=== PATIENT | female | born 1940 | race Hispanic/Latino ===

== ENCOUNTER 2018-10-04 16:20 | Inpatient (IN) | payer MEDICARE, OTHER ==
[~2018-10-04] VITALS: Ht 152.4 cm; Wt 71.2 kg
--- OUTSIDE RECORDS SUMMARY | 2018-10-04 16:24 | XMS REPORT | Continuity of Care Document ---
Author Author [facility] Address Unknown Phone Unavailable Care Team Providers Care Career Consultant Name Role Phone MD Radha, Padmaja GALLARDO Unavailable Insurance Providers Payer name Policy type / Coverage type Policy ID Covered libertarian ID Policy Mendez [facility] (MEDICARE REPL Encounters Encounter Performer Location Date Office Visit Padmaja Gracia MD [facility] Dec 09, 2014 Problems Problem Effective Dates Problem Status PREVENTIVE HEALTH CARE Jun 02, 2014 Active OTHER SCREENING MAMMOGRAM Jun 02, 2014 Active SCREENING FOR COLON CANCER Jun 02, 2014 Active SCREENING FOR GLAUCOMA Jun 02, 2014 Active BODY MASS INDEX 35.0-35.9, ADULT Jun 02, 2014 Active HYPERTENSION, BENIGN ESSENTIAL Jun 02, 2014 Active DIABETES MELLITUS, TYPE II Jun 02, 2014 Active HYPERLIPIDEMIA Jun 02, 2014 Active URINARY FREQUENCY Jun 02, 2014 Active SCREENING EXAMINATION FOR VENEREAL DISEASE Jun 02, 2014 Active MENOPAUSE Jun 02, 2014 Active DYSPNEA Jun 02, 2014 Active CORNS AND CALLOSITIES Jun 02, 2014 Active NEED FOR PROPHYLACTIC VACCINATION AGAINST STREPTOCOCCUS PNEUMONIAE [PNEUMOCOCCUS] Jun 02, 2014 Active DEMENTIA Jun 19, 2014 Active FOOT PAIN Oct 23, 2014 Active DYSPAREUNIA Dec 09, 2014 Active EDEMA LEG Dec 09, 2014 Active Procedures Date Description Comments Jun 02, 2014 smoking status Former smoker Jun 02, 2014 depression, criteria for diagnosis, step 1 N Jun 02, 2014 depression, criteria for diagnosis, step 2 N Jun 02, 2014 diabetic foot check yes Jun 19, 2014 smoking status Former smoker Jun 11, 2014 bone density Complete std dev Jun 11, 2014 mammogram Completed Dec 09, 2014 smoking status Former smoker Medications Medication Instructions Start Date Status METFORMIN HCL 500 MG TABS take one tablet by mouth twice a day Jun 02, 2014 Active METOPROLOL SUCCINATE ER 25 MG [id number] take one tablet by mouth daily Jun 02, 2014 Active AMLODIPINE BESYLATE 10 MG TABS Take one tablet by mouth once a day Jun 19, 2014 Active DONEPEZIL HCL 5 MG TBDP Take one tablet by mouth once a day Jun 19, 2014 Active B-12 1000 MCG CAPS Take one tablet by mouth once a day Jun 19, 2014 Active CALTRATE 600+D 600-400 MG-UNIT TABS 1 tablet twice daily Jun 19, 2014 Active ALENDRONATE SODIUM 35 MG TABS take one tablet by mouth once weekly with full glass of water and remain upright for 30 minutes Jun 19, 2014 Active MARIANO TELLEZ LANCDARRELL 33G MISC use as directed Sep 13, 2014 Active LOSARTAN POTASSIUM-HCTZ 100-25 MG TABS take one tablet by mouth daily Jun 02, 2014 Inactive VALSARTAN-HYDROCHLOROTHIAZIDE 320-12.5 MG TABS Take one tablet by mouth once a day Dec 09, 2014 Active HYDRALAZINE HCL 25 MG TABS Take one tablet by mouth two times a day Dec 09, 2014 Active Immunizations Vaccine Date Status pneumococcal immunization administered Jun 02, 2014 completed Vital Signs Date Description Test Result Jun 02, 2014 temperature E&M TEMPERATURE 97.3 deg f Jun 02, 2014 respiratory rate E&M - 9279-1 RESP RATE 16 /min Jun 02, 2014 weight E&M - 3141-9 WEIGHT 181 lb Jun 02, 2014 height E&M - 8302-2 HEIGHT 60 in Jun 02, 2014 blood pressure, systolic - 8480-6 BP SYSTOLIC 170 mm Hg Jun 02, 2014 blood pressure, diastolic - 8462-4 BP DIASTOLIC 88 mm Hg Jun 02, 2014 pulse rate E&M - 8867-4 PULSE RATE 92 /min Jun 02, 2014 blood pressure, systolic, second observation BP SYS #2 165 mm Hg Jun 02, 2014 blood pressure, diastolic, second observation BP LEONIDAS #2 80 mm Hg Jun 19, 2014 blood pressure, systolic - 8480-6 BP SYSTOLIC 180 mm Hg Jun 19, 2014 blood pressure, diastolic - 8462-4 BP DIASTOLIC 89 mm Hg Jun 19, 2014 respiratory rate E&M - 9279-1 RESP RATE 16 /min Jun 19, 2014 temperature E&M TEMPERATURE 97.6 deg f Jun 19, 2014 pulse rate E&M - 8867-4 PULSE RATE 66 /min Jun 19, 2014 height E&M - 8302-2 HEIGHT 60 in Jun 19, 2014 weight E&M - 3141-9 WEIGHT 179.13 lb Jun 19, 2014 blood pressure, systolic, second observation BP SYS #2 170 mm Hg Jun 19, 2014 blood pressure, diastolic, second observation BP LEONIDAS #2 79 mm Hg Dec 09, 2014 height E&M - 8302-2 HEIGHT 60 in Dec 09, 2014 weight E&M - 3141-9 WEIGHT 180 lb Dec 09, 2014 temperature E&M TEMPERATURE 97.0 deg f Dec 09, 2014 respiratory rate E&M - 9279-1 RESP RATE 14 /min Dec 09, 2014 pulse rate E&M - 8867-4 PULSE RATE 65 /min Dec 09, 2014 blood pressure, systolic - 8480-6 BP SYSTOLIC 167 mm Hg Dec 09, 2014 blood pressure, diastolic - 8462-4 BP DIASTOLIC 85 mm Hg Dec 09, 2014 blood pressure, systolic, second observation BP SYS #2 160 mm Hg Dec 09, 2014 blood pressure, diastolic, second observation BP LEONIDAS #2 80 mm Hg Results Date Description Test Name Value Reference Interpretation Status Jun 03, 2014 hemoglobin, blood HGB 15.3 g/dL 12.0-16.0 Jun 03, 2014 hematocrit, blood HCT 47.2 % 36.0-48.0 Jun 03, 2014 platelet count PLATELETS 176 K/CMM /mm3 133-450 Jun 03, 2014 urine color UA COLOR Yellow null Yellow Jun 03, 2014 bacteria, urine microscopy BACTERIA URN Few null None Seen Jun 03, 2014 hemoglobin A1C, blood, as % of total hemoglobin HGBA1C 6.8 % <=5.6 High Jun 03, 2014 thyroid stimulating hormone, serum TSH 0.618 uIU/mL 0.360-3.740 Jun 03, 2014 cholesterol, serum CHOLESTEROL 207 mg/dl <=199 High Jun 03, 2014 triglyceride, serum, fasting TRIGLYCERIDE 148 mg/dl <=149 Jun 03, 2014 HDL cholesterol, serum HDL 59 mg/dl >=61 Low Jun 03, 2014 LDL cholesterol, serum LDL 118 mg/dl <=99 High Jun 03, 2014 sodium, serum SODIUM 140 MEQ/L mmol/L 135-145 Jun 03, 2014 potassium, serum POTASSIUM 3.5 MEQ/L mmol/L 3.5-5.1 Jun 03, 2014 creatinine, serum CREATININE 0.8 mg/dL 0.5-1.4 Jun 03, 2014 urea nitrogen, blood BUN 13 mg/dL 7-22 Jun 03, 2014 urea nitrogen/creatinine ratio, serum BUN/CREAT 16 null 6-25 Jun 03, 2014 albumin, serum ALBUMIN 4.2 g/dL 3.5-5.0 Jun 03, 2014 calcium, serum CALCIUM 8.6 mg/dL 8.5-10.5 Jun 03, 2014 alanine aminotransferase (SGPT), serum SGPT (ALT) 37 U/L 0-65 Jun 03, 2014 aspartate aminotransferase (SGOT), serum SGOT (AST) 28 U/L 0-37 Jun 03, 2014 alkaline phosphatase, serum ALK PHOS 69 U/L 39-136 Jun 06, 2014 occult blood, stool (E&M) HEMOCCULT Negative null Negative Jun 07, 2014 occult blood, stool (E&M) HEMOCCULT Negative null Negative Jun 08, 2014 occult blood, stool (E&M) HEMOCCULT Negative null Negative Jun 03, 2014 rapid plasma reagin antibody, serum RPR Non Reactive null Non Reactive
--- OUTSIDE RECORDS SUMMARY | 2018-10-04 16:24 | XMS REPORT | Continuity of Care Document ---
Author Author [facility] Address Unknown Phone Unavailable Care Team Providers Care Latex Foam Worker Name Role Phone MD Radha, Padmaja GALLARDO Unavailable Insurance Providers Payer name Policy type / Coverage type Policy ID Covered constitution party ID Policy Mendez [facility] (MEDICARE REPL Encounters Encounter Performer Location Date Lab Report Padmaja Garcia MD [facility] Dec 10, 2014 Problems Problem Effective Dates Problem Status [...] 2014 Active METOPROLOL SUCCINATE ER 25 MG [id number] take one tablet by mouth daily Jun [...] microscopy BACTERIA URN Few null None Seen Dec 10, 2014 urine color UA COLOR Light Yellow null Yellow Jun 03, 2014 hemoglobin A1C, blood, as [...]
--- OUTSIDE RECORDS SUMMARY | 2018-10-04 16:24 | XMS REPORT | Continuity of Care Document ---
Author Author [facility] [place] Interface Address Unknown Phone Unavailable Problems Problem Status Onset Date Classification Date Reported Comments Source POST OP INFECTION Active 09/17/2018 [facility] M25.511 Active 08/19/2018 [facility] ROUTINE MAMMO Active 08/19/2018 [facility] URETERAL VAGINAL PROLAPSED Active 05/08/2018 [facility] URETRAL VAGINAL PROLAPSED Active 05/08/2018 [facility] E66.09 Active 04/05/2018 [facility] Fall from steps 10/21/2017 10/24/2017 [facility] Peripheral vertigo 10/21/2017 10/24/2017 [facility] FALL Active 10/21/2017 [facility] Encounter for screening mammogram for malignant neoplasm of breast 08/30/2017 11/28/2017 [facility] Z12.31 Active 08/02/2017 [facility] DX: M81.0=AGE-RELATED OSTEOPOROSIS WITHO Active 08/09/2016 [facility] SCREENING LAST MMG W/THE BALBINA Active 12/21/2015 [facility] DYSPAREUNIA Active 12/09/2014 [facility] 01/21/[facility] EDEMA LEG Active 12/09/2014 Condition 01/21/[facility] FOOT PAIN Active 10/23/2014 Condition 01/21/2015 [facility] DEMENTIA Active 06/19/2014 Condition 01/21/2015 [facility] Dementia<sup>5, 6</sup> Active 06/19/2014 Problem 09/07/2018 Data migrated from [address] on 10/20/14. [facility] Dementia<sup>5, 6</sup> Active 06/19/2014 Problem 09/24/2018 Data migrated from [address] on 10/20/14. [facility] 06/02/2014 Condition 01/21/2015 [facility] OTHER SCREENING MAMMOGRAM Active 06/02/2014 Condition 01/21/2015 [facility] SCREENING FOR COLON CANCER Active 06/02/2014 Condition 01/21/2015 [facility] SCREENING FOR GLAUCOMA Active 06/02/2014 Condition 01/21/2015 [facility] BODY MASS INDEX 35.0-35.9, ADULT Active 06/02/2014 Condition 01/21/2015 [facility] HYPERTENSION, BENIGN ESSENTIAL Active 06/02/2014 Condition 01/21/2015 [facility] DIABETES MELLITUS, TYPE II Active 06/02/2014 Condition 01/21/2015 [facility] HYPERLIPIDEMIA Active 06/02/2014 Condition 01/21/2015 [facility] URINARY FREQUENCY Active 06/02/2014 Condition 01/21/2015 [facility] SCREENING EXAMINATION FOR VENEREAL DISEASE Active 06/02/2014 Condition 01/21/2015 [facility] MENOPAUSE Active 06/02/2014 Condition 01/21/2015 [facility] DYSPNEA Active 06/02/2014 Condition 01/21/2015 [facility] CORNS AND CALLOSITIES Active 06/02/2014 Condition 01/21/2015 [facility] NEED FOR PROPHYLACTIC VACCINATION AGAINST STREPTOCOCCUS PNEUMONIAE [PNEUMOCOCCUS] Active 06/02/2014 Condition 01/21/2015 [facility] Benign essential hypertension<sup>1, 2</sup> Active 06/02/2014 Problem 09/07/2018 Data migrated from [employer] on 10/20/14. [facility] Body mass index 30+ - obesity<sup>3, 4</sup> Active 06/02/2014 Problem 09/07/2018 Data migrated from [employer] on 10/20/14. [facility] Hyperlipidemia<sup>7, 8</sup> Active 06/02/2014 Problem 08/12/2018 Data migrated from [employer] on 10/20/14. [facility] Type 2 diabetes mellitus<sup>9, 10</sup> Active 06/02/2014 Problem 08/12/2018 Data migrated from [employer] on 10/20/14. [facility] Hyperlipidemia<sup>7, 8</sup> Active 06/02/2014 Problem 07/18/2018 Data migrated from [employer] on 10/20/14. [facility] Type 2 diabetes mellitus<sup>9, 10</sup> Active 06/02/2014 Problem 07/18/2018 Data migrated from [employer] on 10/20/14. [facility] Benign essential hypertension<sup>1, 2</sup> Active 06/02/2014 Problem 09/24/[address] on 10/20/14. [facility] Body mass index 30+ - obesity<sup>3, 4</sup> Active 06/02/2014 Problem 09/24/[address] Data migrated [address] on 10/20/14. [facility] Type 2 diabetes mellitus<sup>7, 8</sup> Active 06/02/2014 Problem 09/24/[address] Data migrated [address] on 10/20/14. [facility] Alzheimer's disease Active Problem 08/12/2018 [facility] Loaiza's esophagus Active Problem 09/07/2018 [facility] Osteopenia Active Problem 09/07/2018 [facility] UI (<span ID="[id number]">Confirmed</span>) Active Problem 09/07/2018 [facility] White coat hypertension Active Problem 12/11/2017 [facility] Alzheimer's disease Active Problem 07/18/2018 [facility] Loaiza's esophagus Active Problem 09/24/2018 [facility] Depression Active Problem 09/24/2018 [facility] Mixed hyperlipidemia Active Problem 09/24/2018 [facility] Osteopenia Active Problem 09/24/2018 [facility] (<span ID="[id number]">Confirmed</span>) Active Problem 09/24/2018 [facility] AGE-RELATED OSTEOPOROSIS W/O CURRENT PAT Active [facility] ILLNESS, UNSPECIFIED Active [facility] Medications Medication Details Route Status Patient Instructions Ordering Provider Order Date Source Amoxicillin 875 MG / Clavulanate 125 MG Oral Tablet [Augmentin 875-mg] 875 mg=1 tab, PO, BID, X 10 day, # 20 tab, 0 Refill(s) Active 09/22/2018 [facility] tramadol hydrochloride 50 MG Oral Tablet 50 mg=1 tab, PO, Q6H, PRN Pain, X 10 day, # 40 tab, 0 Refill(s) Active 09/22/2018 [facility] ibuprofen 600 mg oral tablet 600 mg=1 tab, PO, Q6H, PRN Pain, take with food, X 10 day, # 40 tab, 0 Refill(s) Active 09/22/2018 [facility] Paroxetine 20 mg, 2 tab, Route: PO, Drug form: TAB, Daily, Dosing Weight 80.057, kg, Start date: 09/20/18 10:00:00 CDT, Duration: 30 day, Stop date: 10/20/18 9:00:00 CDTNotes: (Same as: Paxil) No Longer Active 09/20/2018 [facility] Amlodipine 10 mg, 1 tab, Route: PO, Drug form: TAB, Daily, Dosing Weight 80.057, kg, Start date: 09/20/18 9:00:00 CDT, Duration: 30 day, Stop date: 10/19/18 9:00:00 CDTNotes: (Same as: Norvasc) No Longer Active 09/20/2018 [facility] donepezil 10 mg, 2 tab, Route: PO, Drug form: TAB, Daily, Dosing Weight 80.057, kg, Start date: 09/20/18 9:00:00 CDT, Duration: 30 day, Stop date: 10/19/18 9:00:00 CDTNotes: (Same as: Aricept) No Longer Active 09/20/2018 [facility] Hydralazine Hydrochloride 100 MG Oral Tablet 100 mg, 2 tab, Route: PO, Drug form: TAB, TID, Dosing Weight 80.057, kg, Start date: 09/20/18 9:00:00 CDT, Duration: 30 day, Stop date: 10/19/18 17:00:00 CDTNotes: (Same as: Apresoline) May interfere w/enteral feedings Take With Food No Longer Active 09/20/2018 [facility] Flagyl 500 mg, 100 mL, Route: IV, Drug form: INJ, [id number], Dosing Weight 80.057, kg, Start date: 09/19/18 22:00:00 CDT, Duration: 30 day, Stop date: 10/19/18 14:00:00 CDT, ABX Indication: Intra-abdominal Infection No Longer Active 09/20/2018 [facility] Premarin Vaginal 1 gm, Route: VAG, Bedtime, Drug form: CRM/A, Start date: 09/19/18 21:00:00 CDT, Duration: 30 day, Stop date: 10/18/18 21:00:00 CDT No Longer Active 09/20/2018 [facility] cefepime 1 gm, Route: IVP, Drug form: INJ, Q8H, Dosing Weight 80.057, kg, CrCl >/=50 mL/min, Start date: 09/19/18 20:00:00 CDT, Duration: 5 day, Stop date: 09/24/18 12:00:00 CDT, ABX Indication: Intra- abdominal InfectionNotes: MEDICATION WASTE Product Size: 1000 mg Product Wasted: ___ mg No Longer Active 09/20/2018 [facility] Methocarbamol 500 mg, 1 tab, Route: PO, Drug form: TAB, QID, Dosing Weight 80.057, kg, Start date: 09/19/18 17:00:00 CDT, Duration: 30 day, Stop date: 10/19/18 13:00:00 CDTNotes: (Same as:Robaxin) No Longer Active 09/19/2018 [facility] Celebrex 200 mg, 1 cap, Route: PO, Drug form: CAP, BID, Dosing Weight 80.057, kg, Start date: 09/19/18 17:00:00 CDT, Duration: 30 day, Stop date: 10/19/18 9:00:00 CDTNotes: NSAID. Please check indication. Not for seizure. (Same As: CeleBREX) No Longer Active 09/19/2018 [facility] Ondansetron 4 mg, Route: IVP, ONCE, Dosing Weight 80.057, kg, PRN Nausea & Vomiting, Start date: 09/19/18 16:16:00 CDT Inactive 09/19/2018 [facility] Naloxone 0.4 mg, Route: IVP, Q2MIN, Dosing Weight 80.057, kg, PRN Narcotic Reversal, Start date: 09/19/18 16:16:00 CDT, Duration: 8 doses or times, Stop date: Limited # of times Inactive 09/19/2018 [facility] Flumazenil 0.2 mg, Route: IVP, PRN, Dosing Weight 80.057, kg, PRN Benzodiazepine Reversal, Initial dose, Start date: 09/19/18 16:16:00 CDT, Duration: 30 day, Stop date: 10/19/18 16:15:00 CDT Inactive 09/19/2018 [facility] Oxycodone 5 mg, Route: PO, Drug form: TAB, Q4H, Dosing Weight 80.057, kg, PRN Pain Score 4-6, Start date: 09/19/18 16:16:00 CDT, Duration: 30 day, Stop date: 10/19/18 16:15:00 CDT Inactive 09/19/2018 [facility] Acetaminophen 1,000 mg, Route: PO, Drug form: TAB, ONCE, Dosing Weight 80.057, kg, PRN Pain Score 1-3, Start date: 09/19/18 16:16:00 CDT Inactive 09/19/2018 [facility] Ibuprofen 600 mg, Route: PO, Drug form: TAB, Q6H, Dosing Weight 80.057, kg, PRN Pain Score 1-3, Start date: 09/19/18 16:16:00 CDT, Duration: 30 day, Stop date: 10/19/18 16:15:00 CDT Inactive 09/19/2018 [facility] Labetalol 10 mg, Route: IVP, Q5Min, Dosing Weight 80.057, kg, PRN Elevated BP, Start date: 09/19/18 16:16:00 CDT, Duration: 5 doses or times, Stop date: Limited # of times Inactive 09/19/2018 [facility] Hydralazine 10 mg, Route: IVP, Q20Min, Dosing Weight 80.057, kg, PRN Elevated BP, Start date: 09/19/18 16:16:00 CDT, Duration: 2 doses or times, Stop date: Limited # of times Inactive 09/19/2018 [facility] sugammadex 200 mg, 2 mL, Route: IV, Drug form: SOLN, ONCALL, Start date: 09/19/18 16:09:00 CDT, Duration: 1 doses or times, Stop date: 09/19/18 16:09:00 CDTNotes: (Same as: Bridion) No Longer Active 09/19/2018 [facility] gabapentin 300 mg, 1 cap, Route: PO, Drug form: CAP, Q8H, Dosing Weight 80.057, kg, (CrCl > 60 ml/min), Start date: 09/19/18 16:00:00 CDT, Duration: 30 day, Stop date: 10/19/18 8:00:00 CDTNotes: (Same as: Neuro ntin) No Longer Active 09/19/2018 [facility] Lovenox 40 mg, 0.4 mL, Route: SUB-Q, Drug form: INJ, [id number], Dosing Weight 80.057, kg, Start date: 09/19/18 16:00:00 CDT, Duration: 30 day, Stop date: 10/18/18 16:00:00 CDTNotes: (Same as: Lovenox) No Longer Active 09/19/2018 [facility] Acetaminophen 1,000 mg, 2 tab, Route: PO, Drug form: TAB, Q6Hnow, Dosing Weight 80.057, kg, Start date: 09/19/18 16:00:00 CDT, Duration: 30 day, Stop date: 10/19/18 10:00:00 CDTNotes: Max acetaminophen 4000 mg/day (4 gm/day). (Same as: Tylenol Extra Strength) No Longer Active 09/19/2018 [facility] Lactated Ringers IV 1,000 mL 1,000 mL, Rate: 75 ml/hr, Infuse over: 13.3 hr, Route: IV, Dosing Weight 80.057 kg, Total Volume: 1,000, Start date: 09/19/18 15:30:00 CDT, Duration: 30 day, Stop date: 10/19/18 15:29:00 CDT, 1.87, m2 No Longer Active 09/19/2018 [facility] ondansetron (ANES) Route: IV, Drug form: INJ, ONCE, Stop date: 09/19/18 15:28:00 CDT Inactive 09/19/2018 [facility] sugammadex (ANES) Route: IV, Drug form: SOLN, ONCE, Stop date: 09/19/18 15:28:00 CDT Inactive 09/19/2018 [facility] niCARdipine (ANES) + Sodium Chloride 0.9% IV (ANES) 90 mL Route: IV, Drug form: INJ, ONCE, Stop date: 09/19/18 15:25:00 CDT Inactive 09/19/2018 [facility] Tramadol 100 mg, 2 tab, Route: PO, Drug form: TAB, Q6Hnow, Dosing Weight 80.057, kg, PRN Pain Score 7-10, Start date: 09/19/18 14:52:00 CDT, Duration: 30 day, Stop date: 10/19/18 14:51:00 CDTNotes: Not to exceed 400mg/day. (Same As: Ultram) No Longer Active 09/19/2018 [facility] ePHEDrine (ANES) Route: IV, Drug form: INJ, ONCE, Stop date: 09/19/18 14:39:00 CDT Inactive 09/19/2018 [facility] lidocaine (ANES) Route: IV, Drug form: INJ, ONCE, Stop date: 09/19/18 14:23:00 CDT Inactive 09/19/2018 [facility] rocuronium (ANES) Route: IV, Drug form: INJ, ONCE, Stop date: 09/19/18 14:23:00 CDT Inactive 09/19/2018 [facility] propofol (ANES) Route: IV, Drug form: INJ, ONCE, Stop date: 09/19/18 14:23:00 CDT Inactive 09/19/2018 [facility] dexamethasone (ANES) Route: IV, Drug form: INJ, ONCE, Stop date: 09/19/18 14:13:00 CDT Inactive 09/19/2018 [facility] fentaNYL (ANES) Route: IV, Drug form: INJ, ONCE, Stop date: 09/19/18 14:13:00 CDT Inactive 09/19/2018 [facility] Lactated Ringers Injection IV (ANES) 1000 mL Route: IV, Total Volume: 1,000, Start date: 09/19/18 13:17:00 CDT, Stop date: 09/19/18 14:17:00 CDT Inactive 09/19/2018 [facility] Sodium Chloride 0.9% (titrate) 250 mL 250 mL, Rate: To prime line and flush remaining blood products., Dosing Weight 80.057, kg, Route: IV, Total Volume: 250, Start Date: 09/18/18 19:36:00 CDT, Duration: 30 day, Stop date: 10/18/18 19:35:00 CDT, Replace Every: 24 hr No Longer Active 09/19/2018 [facility] magnesium citrate 58.2 MG/ML Oral Solution 300 ml, Route: PO, Drug Form: LIQ, Dosing Weight 80.057, kg, ONCE, Start date: 09/18/18 19:33:00 CDT, Stop date: 09/18/18 19:33:00 CDTNotes: (Same as: Citrate of Magnesia) Concentration: 1.745 gm / 30 mL Inactive 09/19/2018 [facility] Iohexol 100 mL, Route: IVP, Drug Form: SOLN, Dosing Weight 80.057, kg, ONCALL, STAT, Start date: 09/18/18 1:42:00 CDT, Duration: 1 doses or times, Dose=2.2ml/kg, Max dpnc=[id number] -- "To be infused by Radiology Staff ONLY" Inactive 09/18/2018 [facility] potassium chloride 20 mEq, 100 mL, Route: IVPB, Drug form: INJ, Q2H, Start date: 09/18/18 0:00:00 CDT, Duration: 3 doses or times, Stop date: 09/18/18 4:00:00 CDTNotes: (Same as: KCL) Infuse no faster than 10 mEq/hr if given peripherally. Inactive 09/18/2018 [facility] Potassium Chloride 10 mEq, Route: IVPB, Q1H, Dosing Weight 80.057, kg, Total Dose=60 meq, Start date: 09/17/18 22:00:00 CDT, Duration: 6 doses or times, Stop date: 09/18/18 3:00:00 CDT, Peripheral Line Inactive 09/18/2018 [facility] Vancomycin 1,200.855 mg, Route: IV, Drug form: INJ, Q12H, Dosing Weight 80.057, kg, Start date: 09/17/18 21:00:00 CDT, Duration: 2 day, Stop date: 09/19/18 9:00:00 CDT, Pediatric Dosing, ABX Indication: Genital Tract Infection Inactive 09/18/2018 [facility] vancomycin + Sodium Chloride 0.9% IV 250 mL 750 mg, Route: IVPB, Drug form: INJ, [id number], Start date: 09/17/18 19:30:00 CDT, Duration: 2 day, Stop date: 09/19/18 7:30:00 CDT, ABX Indication: Genital Tract InfectionNotes: TIME CRITICAL MEDICATION (Same As: Vancocin) Infusion rate 2001 mg: infuse over 2.5 hours For adult patients only: Round to nearest 250 mg per Medical Staff approval MEDICATION WASTE Product Size: 1000 mg Product Wasted: ___ mg No Longer Active 09/18/2018 [facility] Flagyl 500 mg, 100 mL, Route: IVPB, Drug form: INJ, [id number], Dosing Weight 80.057, kg, Start date: 09/17/18 18:00:00 CDT, Duration: 2 day, Stop date: 09/19/18 10:00:00 CDT, ABX Indication: Genital Tract Infection No Longer Active 09/17/2018 [facility] cefepime 2 gm, Route: IVP, Drug form: INJ, [id number], Dosing Weight 80.057, kg, CrCl >/=50 mL/min, ETIOLOGIST infection or neutropenic fever, Start date: 09/17/18 18:00:00 CDT, Duration: 2 day, Stop date: 09/19/18 10:00:00 CDT, ABX Indication: Genital Tract InfectionNotes: MEDICATION WASTE Product Size: 2000 mg Product Wasted: ___ mg No Longer Active 09/17/2018 [facility] Ibuprofen 600 mg, 1 tab, Route: PO, Drug form: TAB, Q8H, Dosing Weight 80.057, kg, PRN Pain Score 6-10, Start date: 09/17/18 17:11:00 CDT, Duration: 30 day, Stop date: 10/17/18 17:10:00 CDT No Longer Active 09/17/2018 [facility] Dextrose 50% in Water (bolus) IV 25 gm, 50 mL, Route: IVP, Drug Form: INJ, Dosing Weight 80.057, kg, PRN, PRN Abnormal Lab Result, Start date: 09/17/18 17:09:00 CDT, Duration: 30 day, Stop date: 10/17/18 17:08:00 CDT No Longer Active 09/17/2018 [facility] Dextrose 50% Syringe 25 mL, Route: IVP, Dosing Weight 80.057, kg, PRN, PRN Abnormal Lab Result, Start date: 09/17/18 17:09:00 CDT, Duration: 30 day, Stop date: 10/17/18 17:08:00 CDT Inactive 09/17/2018 [facility] Regular Insulin, Human 100 UNT/ML Injectable Solution 7 unit, 0.07 mL, Route: SUB-Q, Drug form: SOLN, PRN, Dosing Weight 80.057, kg, PRN Abnormal Lab Result, Start date: 09/17/18 17:09:00 CDT, Duration: 30 day, Stop date: 10/17/18 17:08:00 CDTNotes: (Same as: Humulin R) Roll in palms of hands gently; Do not shake vigorously. WASTE: F/P - Black; E - Municipal Trash Bin Stable for 31 days at room temperature Expires in days from Date No Longer Active 09/17/2018 [facility] Lactated Ringers IV 1,000 mL 1,000 mL, Rate: 100 ml/hr, Infuse over: 10 hr, Route: IV, Dosing Weight 80.057 kg, Total Volume: 1,000, Start date: 09/17/18 17:05:00 CDT, Duration: 30 day, Stop date: 10/17/18 17:04:00 CDT, 1.87, m2 No Longer Active 09/17/2018 [facility] simethicone 80 mg oral tablet 80 mg=1 tab, PO, TID-After Meals, # 30 tab, 0 Refill(s) Active 09/10/2018 [facility] Docusate 200 mg, 2 cap, Route: PO, Drug form: CAP, ONCE, Dosing Weight 80, kg, Start date: 09/10/18 13:36:00 CDT, Stop date: 09/10/18 13:36:00 CDTNotes: (Same as: Colace) (Do Not Crush) Inactive 09/10/2018 [facility] acetaminophen 1,000 mg, 2 tab, Route: PO, Drug form: TAB, Q6H, Start date: 09/10/18 12:00:00 CDT, Duration: 30 day, Stop date: 10/10/18 6:00:00 CDTNotes: Max acetaminophen 4000 mg/day (4 gm/day). (Same as: Tylenol Extra Strength) Inactive 09/10/2018 [facility] Simethicone 80 mg, 1 tab, Route: CHEW, Drug form: CHEWTAB, ONCE, Dosing Weight 80, kg, PRN Gas, Start date: 09/10/18 9:50:00 CDTNotes: (Same as: Mylicon) Inactive 09/10/2018 [facility] Acetaminophen 300 MG / Codeine Phosphate 30 MG Oral Tablet [Tylenol with Codeine #3] 1 tab, PO, Q6H, PRN Pain, X 7 day, # 20 tab, 0 Refill(s) Active 09/10/2018 [facility] ferrous sulfate 325 mg oral enteric coated tablet 325 mg=1 tab, PO, BID, give with orange juice, # 60 tab, 3 Refill(s) Active 09/10/2018 [facility] Docusate Sodium 100 MG Oral Capsule 100 mg=1 cap, PO, BID, PRN Constipation, # 28 cap, 1 Refill(s) Active 09/10/2018 [facility] nitrofurantoin macrocrystals 100 mg oral capsule (Macrodantin) 100 mg=1 cap, PO, QID, X 10 day, # 40 cap, 0 Refill(s) Active 09/10/2018 [facility] ibuprofen 800 mg oral tablet 800 mg=1 tab, PO, Q8H, PRN Pain, Take with food, X 10 day, # 40 tab, 0 Refill(s) Active 09/10/2018 [facility] tramadol hydrochloride 50 MG Oral Tablet 50 mg=1 tab, PO, Q6H, PRN Pain, X 10 day, # 20 tab, 0 Refill(s) Active 09/10/2018 [facility] Phenazopyridine hydrochloride 100 MG Oral Tablet [Pyridium] 100 mg=1 tab, PO, PRN, PRN Dysuria, # 30 tab, 0 Refill(s) Active 09/10/2018 [facility] Hydralazine Hydrochloride 50 MG Oral Tablet 50 mg, 1 tab, Route: PO, Drug form: TAB, BID, Dosing Weight 80, kg, Start date: 09/10/18 9:00:00 CDT, Duration: 30 day, Stop date: 10/09/18 17:00:00 CDT Inactive 09/10/2018 [facility] Lovenox 40 mg, 0.4 mL, Route: SUB-Q, Drug form: INJ, [id number], Dosing Weight 80, kg, Start date: 09/10/18 9:00:00 CDT, Duration: 30 day, Stop date: 10/09/18 9:00:00 CDTNotes: (Same as: Lovenox) Inactive 09/10/2018 [facility] Metformin hydrochloride 500 MG Oral Tablet 500 mg, 1 tab, Route: PO, Drug form: TAB, BID-Meals, Dosing Weight 80, kg, Start date: 09/10/18 8:00:00 CDT, Duration: 30 day, Stop date: 10/09/18 17:00:00 CDT Inactive 09/10/2018 [facility] Tessalon Perles 100 mg, 1 cap, Route: PO, Drug form: CAP, TID, Dosing Weight 80, kg, PRN Cough, Start date: 09/10/18 7:23:00 CDT, Duration: 30 day, Stop date: 10/10/18 7:22:00 CDTNotes: (Same As: Tessalon Perles) "Do Not Crush" Inactive 09/10/2018 [facility] Labetalol 200 mg, 1 tab, Route: PO, Drug form: TAB, Q12H, Dosing Weight 80, kg, Start date: 09/09/18 21:00:00 CDT, Duration: 30 day, Stop date: 10/09/18 9:00:00 CDTNotes: With food. (Same as:Trandate, Normodyne) No Longer Active 09/10/2018 [facility] Ofirmev 1,000 mg, 100 mL, Route: IV, Drug form: INJ, Q6H, Dosing Weight 80, kg, for > or=50 kg, Start date: 09/09/18 18:00:00 CDT, Duration: 30 day, Stop date: 10/09/18 12:00:00 CDTNotes: Infuse over 15 minutes Do not exceed 4gm/day of acetaminophen MEDICATION WASTE Product Size: 1000 mg Product Wasted: ___ mg No Longer Active 09/09/2018 [facility] Ancef 2 gm, 20 mL, Route: IVP, Drug form: SOLN, Q8H, Dosing Weight 80, kg, Start date: 09/09/18 17:00:00 CDT, Duration: 1 day, Stop date: 09/10/18 9:00:00 CDT, ABX Indication: Surgical ProphylaxisNotes: (Same as Ancef) No Longer Active 09/09/2018 [facility] Docusate Sodium 100 MG Oral Capsule [Colace] 100 mg, 1 cap, Route: PO, Drug form: CAP, BID, Dosing Weight 80, kg, Start date: 09/09/18 17:00:00 CDT, Duration: 30 day, Stop date: 10/09/18 9:00:00 CDTNotes: (Same as: Colace) (Do Not Crush) No Longer Active 09/09/2018 [facility] Calcium Chloride 0.0014 MEQ/ML / Potassium Chloride 0.004 MEQ/ML / Sodium Chloride 0.103 MEQ/ML / Sodium Lactate 0.028 MEQ/ML Injectable Solution 1,000 mL, 1,000 ml/hr, Infuse Over: 1 hr, Route: IV, 1,000, Drug form: INJ, ONCE, Priority: STAT, Dosing Weight 80 kg, Start date: 09/09/18 16:32:00 CDT, Stop date: 09/09/18 16:32:00 CDT Inactive 09/09/2018 [facility] neostigmine (ANES) Route: IV, Drug form: INJ, ONCE, Stop date: 09/09/18 12:09:00 CDT Inactive 09/09/2018 [facility] Calcium Chloride 0.0014 MEQ/ML / Potassium Chloride 0.004 MEQ/ML / Sodium Chloride 0.103 MEQ/ML / Sodium Lactate 0.028 MEQ/ML Injectable Solution 1,000 mL, Rate: 125 ml/hr, Infuse over: 8 hr, Route: IV, Dosing Weight 80 kg, Total Volume: 1,000, Start date: 09/09/18 11:41:00 CDT, Duration: 30 day, Stop date: 10/09/18 11:40:00 CDT, 1.87, m2 No Longer Active 09/09/2018 [facility] Ibuprofen 600 mg, 1 tab, Route: PO, Drug form: TAB, Q6H, Dosing Weight 80, kg, PRN Pain Score 1-5, Start date: 09/09/18 11:37:00 CDT, Duration: 30 day, Stop date: 10/09/18 11:36:00 CDT, > 60 kg; Pediatric DosingNotes: (Same as: Motrin) "Do Not Crush" Take with food. No Longer Active 09/09/2018 [facility] Tramadol 50 mg, 1 tab, Route: PO, Drug form: TAB, Q6H, Dosing Weight 80, kg, PRN Pain Score 6-10, Start date: 09/09/18 11:37:00 CDT, Duration: 1 day, Stop date: 09/10/18 11:36:00 CDTNotes: Not to exceed 400mg/day. (Same As: Ultram) No Longer Active 09/09/2018 [facility] norepinephrine (ANES) Route: IV, Drug form: INJ, ONCE, Stop date: 09/09/18 11:18:00 CDT Inactive 09/09/2018 [facility] furosemide (ANES) Route: IV, Drug form: INJ, ONCE, Stop date: 09/09/18 11:18:00 CDT Inactive 09/09/2018 [facility] ondansetron (ANES) Route: IV, Drug form: INJ, ONCE, Stop date: 09/09/18 11:13:00 CDT Inactive 09/09/2018 [facility] indigo carmine (ANES) Route: IV, Drug form: INJ, ONCE, Stop date: 09/09/18 10:53:00 CDT Inactive 09/09/2018 [facility] ketOROLAC (ANES) IV, ONCE Inactive 09/09/2018 [facility] hydromorphone (ANES) Route: IV, Drug form: INJ, ONCE, Stop date: 09/09/18 9:18:00 CDT Inactive 09/09/2018 [facility] dexamethasone (ANES) Route: IV, Drug form: INJ, ONCE, Stop date: 09/09/18 9:08:00 CDT Inactive 09/09/2018 [facility] Oxycodone 5 mg, 1 tab, Route: PO, Drug form: TAB, Q4H, Dosing Weight 80, kg, PRN Pain Score 4-6, Start date: 09/09/18 9:07:00 CDT, Duration: 30 day, Stop date: 10/09/18 9:06:00 CDTNotes: (Same as: Roxicodone) Inactive 09/09/2018 [facility] Acetaminophen 1,000 mg, 2 tab, Route: PO, Drug form: TAB, ONCE, Dosing Weight 80, kg, PRN Pain Score 1-3, Start date: 09/09/18 9:07:00 CDTNotes: Max acetaminophen 4000 mg/day (4 gm/day). (Same as: Tylenol Extra S veto) Inactive 09/09/2018 [facility] Hydralazine 10 mg, 0.5 mL, Route: IVP, Drug form: INJ, Q20Min, Dosing Weight 80, kg, PRN Elevated BP, Start date: 09/09/18 9:07:00 CDT, Duration: 2 doses or times, Stop date: Limited # of timesNotes: (Same as: A presoline) Push over 5 minutes Inactive 09/09/2018 [facility] Ondansetron 4 mg, 2 mL, Route: IVP, Drug form: INJ, ONCE, Dosing Weight 80, kg, PRN Nausea & Vomiting, Start date: 09/09/18 9:07:00 CDTNotes: (Same as: Zofran) MEDICATION WASTE Product Size: 4 mg Prod uct Wasted: ___ mg Inactive 09/09/2018 [facility] Flumazenil 0.2 mg, 2 mL, Route: IVP, Drug form: INJ, PRN, Dosing Weight 80, kg, PRN Benzodiazepine Reversal, Initial dose, Start date: 09/09/18 9:07:00 CDT, Duration: 30 day, Stop date: 10/09/18 9:06:00 CDTNotes: (Same as: Romazicon) Inactive 09/09/2018 [facility] Naloxone 0.4 mg, 1 mL, Route: IVP, Drug form: INJ, Q2MIN, Dosing Weight 80, kg, PRN Narcotic Reversal, Start date: 09/09/18 9:07:00 CDT, Duration: 8 doses or times, Stop date: Limited # of timesNotes: Same as Narcan Inactive 09/09/2018 [facility] Hydromorphone 0.5 mg, 0.5 mL, Route: IVP, Drug form: INJ, Q5Min, Dosing Weight 80, kg, PRN Pain Score 7-10, Start date: 09/09/18 9:07:00 CDT, Duration: 4 doses or times, Stop date: Limited # of timesNotes: Same as: Dilaudid Inactive 09/09/2018 [facility] glycopyrrolate (ANES) Route: IV, Drug form: INJ, ONCE, Stop date: 09/09/18 8:53:00 CDT Inactive 09/09/2018 [facility] fentaNYL (ANES) Route: IV, Drug form: INJ, ONCE, Stop date: 09/09/18 8:48:00 CDT Inactive 09/09/2018 [facility] propofol (ANES) Route: IV, Drug form: INJ, ONCE, Stop date: 09/09/18 8:48:00 CDT Inactive 09/09/2018 [facility] famotidine (ANES) Route: IV, Drug form: INJ, ONCE, Stop date: 09/09/18 8:28:00 CDT Inactive 09/09/2018 [facility] ePHEDrine (ANES) Route: IV, Drug form: INJ, ONCE, Stop date: 09/09/18 8:28:00 CDT Inactive 09/09/2018 [facility] ceFAZolin (ANES) Route: IV, Drug form: INJ, ONCE, Stop date: 09/09/18 8:28:00 CDT Inactive 09/09/2018 [facility] rocuronium (ANES) Route: IV, Drug form: INJ, ONCE, Stop date: 09/09/18 8:28:00 CDT Inactive 09/09/2018 [facility] lidocaine (ANES) Route: IV, Drug form: INJ, ONCE, Stop date: 09/09/18 8:28:00 CDT Inactive 09/09/2018 [facility] metroNIDAZOLE (ANES) 5 mg Route: IV, Drug form: INJ, Start date: 09/09/18 7:53:00 CDT, Stop date: 09/09/18 8:53:00 CDT Inactive 09/09/2018 [facility] Lactated Ringers Injection IV (ANES) 1000 mL Route: IV, Total Volume: 1,000, Start date: 09/09/18 7:30:00 CDT, Stop date: 09/09/18 8:30:00 CDT Inactive 09/09/2018 [facility] Flagyl 500 mg, 100 mL, Route: IVPB, Drug form: INJ, PRE OP, Start date: 09/09/18 7:00:00 CDT, Duration: 1 day, Stop date: 09/10/18 6:59:00 CDT, ABX Indication: Surgical ProphylaxisNotes: (Same as: Flagyl) Avoid alcohol. No Longer Active 09/09/2018 [facility] ceFAZolin + sterile water 20 mL 2 gm, Route: IV, PRE OP, Start date: 09/09/18 7:00:00 CDT, Duration: 1 day, Stop date: 09/10/18 6:59:00 CDT, ABX Indication: Surgical ProphylaxisNotes: (Same As: Ancef, Kefzol) MEDICATION WASTE Product Size: 1000 mg Product Wasted: ___ mg No Longer Active 09/09/2018 [facility] ceFAZolin + sterile water 20 mL 2 gm, Route: IV, PRE OP, Start date: 09/08/18 23:00:00 CDT, Duration: 1 day, Stop date: 09/09/18 22:59:00 CDT, ABX Indication: Surgical ProphylaxisNotes: (Same As: Ancef, Kefzol) MEDICATION WASTE Product Size: 1000 mg Product Wasted: ___ mg No Longer Active 09/09/2018 [facility] meclizine 25 mg oral tablet 25 mg=1 tab, PO, Daily, PRN for dizziness, as needed for vertigo, X 20 day, # 30 tab, 0 Refill(s), [id number] Hydrochlorothiazide 12.5 MG / valsartan 320 MG Oral Tablet 1 tab, PO, Daily, # 90 tab, 1 Refill(s) Active 08/23/2018 [facility] diclofenac potassium 50 mg oral tablet 50 mg=1 tab, PO, Q12H, PRN Pelvic Pain, X 10 day, # 40 tab, 0 Refill(s), [id number] 08/16[facility] tolterodine 4 mg oral capsule, extended release =1 cap, PO, Daily, # 90 tab, 1 Refill(s), [id number]/16[facility] Paroxetine Hydrochloride 20 MG Oral Tablet =1 tab, PO, Daily, # 90 tab, 1 Refill(s), [id number] 08/16[facility] Metformin hydrochloride 500 MG Oral Tablet 500 mg=1 tab, PO, Daily, # 90 tab, 1 Refill(s), [id number]16[facility] labetalol 200 mg oral tablet See Instructions, TAKE 1 TABLET BY MOUTH TWICE A DAY, # 180 tab, 1 Refill(s), [id number] 08/16[facility] Hydrochlorothiazide 12.5 MG / irbesartan 300 MG Oral Tablet See Instructions, TAKE 1 TABLET BY MOUTH EVERY DAY, # 90 tab, 1 Refill(s), Pharmacy: [facility]/pharmacy #[id number] Active 08/16/2018 [facility] Hydralazine Hydrochloride 100 MG Oral Tablet 100 mg=1 tab, PO, TID, # 270 tab, 1 Refill(s), Pharmacy: [facility]/pharmacy #[id number] Active 08/16/2018 [facility] donepezil 10 mg oral tablet See Instructions, TAKE 1 TABLET EVERY DAY, # 90 tab, 1 Refill(s), Pharmacy: [facility]/pharmacy #[id number] Active 08/16/2018 [facility] atorvastatin 10 mg oral tablet See Instructions, TAKE 1 TABLET AT BEDTIME, # 90 tab, 1 Refill(s), [id number] 08/16[facility] amLODIPine 10 mg oral tablet 10 mg=1 tab, PO, Daily, # 90 tab, 1 Refill(s), [id number] 08/16/[facility] amLODIPine 10 mg oral tablet 10 mg=1 tab, PO, Daily, # 90 tab, 1 Refill(s) Inactive 08/16/2018 [facility] Hydrochlorothiazide 12.5 MG / irbesartan 300 MG Oral Tablet 1 tab, PO, Daily, # 90 tab, 1 Refill(s), [id number] Active 08/09/2018 [facility] tolterodine 4 mg oral capsule, extended release =1 cap, PO, Daily, # 90 unknown unit, Refill(s) 1, [id number] Active 06/25/2018 [facility] Paroxetine Hydrochloride 20 MG Oral Tablet =1 tab, PO, Daily, # 90 tab, Refill(s) 1, [id number] 06/10/2018 [facility] Hydralazine Hydrochloride 100 MG Oral Tablet See Instructions, # 180 tab, Refill(s) 1, TAKE 1 TABLET BY MOUTH TWICE A DAY, [id number] No Longer Active 03/22/2018 [facility] Hydrochlorothiazide 12.5 MG / irbesartan 300 MG Oral Tablet See Instructions, # 90 tab, Refill(s) 1, TAKE 1 TABLET BY MOUTH EVERY DAY, [id number] 03/22/2018 [facility] tolterodine 4 mg oral capsule, extended release See Instructions, TAKE 1 CAPSULE EVERY DAY, # 90 tab, 1 Refill(s), [id number] No Longer Active 12/24/2017 [facility] Paroxetine Hydrochloride 20 MG Oral Tablet 20 mg=1 tab, PO, Daily, # 90 tab, 0 Refill(s), [id number] No Long[facility] Active 12/24/2017 [facility] pantoprazole 40 mg oral enteric coated tablet See Instructions, TAKE 1 TABLET EVERY DAY, # 90 tab, 1 Refill(s), [id number] 12/24/2017 [facility] Metformin hydrochloride 500 MG Oral Tablet See Instructions, TAKE 1 TABLET TWICE A DAY, # 180 tab, 1 Refill(s), [id number] No Longer Active 12/24/2017 [facility] labetalol 200 mg oral tablet 200 mg=1 tab, PO, BID, # 180 tab, 1 Refill(s), [id number] No Long[facility] Active 12/24/2017 [facility] Hydrochlorothiazide 12.5 MG / irbesartan 300 MG Oral Tablet 1 tab, PO, Daily, # 90 tab, 0 Refill(s), [id number], stop valsartan hctz No Longer Active 12/24/2017 [facility] Hydralazine Hydrochloride 100 MG Oral Tablet 100 mg=1 tab, PO, BID, # 180 tab, 0 Refill(s), [id number], Increase hydralazyne from 50 to 100 mg No Longer Active 12/24/2017 [facility] Paroxetine Hydrochloride 20 MG Oral Tablet 20 mg=1 tab, PO, Daily, # 90 tab, 0 Refill(s), [id number] No Longer Active 12/13/2017 [facility] atorvastatin 10 mg oral tablet 10 mg=1 tab, PO, Bedtime, # 90 tab, 1 Refill(s), [id number] No Longer Active 12/07/2017 [facility] pantoprazole 40 mg oral enteric coated tablet 40 mg=1 tab, PO, Daily, # 90 tab, 0 Refill(s), [id number] 11/09/2017 [facility] Meclizine Hydrochloride 25 MG Oral Tablet [Antivert] 25 mg=1 tab, PO, TID, PRN Dizziness, X 7 day, # 21 tab, 0 Refill(s), [id number] Active 10/[facility]/2017 [facility] Antivert 50 mg, 2 tab, Route: PO, Drug form: TAB, ONCE, Dosing Weight 72.727, kg, Priority: STAT, Start date: 10/21/17 12:41:00 CDT, Stop date: 10/21/17 12:41:00 CDTNotes: (Same as: Antivert) Inactive 10/21/2017 [facility] Sodium Chloride 0.9% (Bolus) IV 1,000 mL, 1000 ml/hr, Infuse Over: 1 hr, Route: IV, 1,000, Drug form: INJ, ONCE, Priority: STAT, Dosing Weight 72.727 kg, Start date: 10/21/17 11:21:00 CDT, Stop date: 10/21/17 11:21:00 CDT Inactive 10/21/2017 [facility] venlafaxine 75 mg oral capsule, extended release 75 mg=1 cap, PO, Daily, # 30 cap, 1 Refill(s), [id number] 08/30/[facility] PARoxetine 20 mg oral tablet 20 mg=1 tab, PO, Daily, # 30 tab, 0 Refill(s), [id number], Instead of fluoxetine No Longer Active 08/02/2017 [facility] pantoprazole 40 mg oral enteric coated tablet 40 mg=1 tab, PO, Daily, X 90 day, # 90 tab, 0 Refill(s), [id number] No Longer Active 08/02/2017 [facility] Metformin hydrochloride 500 MG Oral Tablet See Instructions, TAKE 1 TABLET TWICE A DAY, # 180 tab, 1 Refill(s), [id number] Active 08/02/2017 [facility] labetalol 200 mg oral tablet 200 mg=1 tab, PO, BID, # 180 tab, 1 Refill(s), [id number] Active 08/02/2017 [facility] Hydrochlorothiazide 12.5 MG / valsartan 320 MG Oral Tablet See Instructions, TAKE 1 TABLET BY MOUTH DAILY, # 90 tab, 1 Refill(s), [id number] Active 08/02/2017 [facility] Hydralazine Hydrochloride 50 MG Oral Tablet 50 mg=1 tab, PO, BID, # 180 tab, 1 Refill(s), [id number] Active 08/02/2017 [facility] VALSARTAN-HYDROCHLOROTHIAZIDE 320-12.5 MG TABS Take one tablet by mouth once a day Active 12/09/2014 [facility] HYDRALAZINE HCL 25 MG TABS Take one tablet by mouth two times a day Active 12/09/2014 [facility] MARIANO SHERMAN 33G MISC use as directed Active 09/13/2014 [facility] AMLODIPINE BESYLATE 10 MG TABS Take one tablet by mouth once a day Active 06/19/2014 [facility] DONEPEZIL HCL 5 MG TBDP Take one tablet by mouth once a day Active 06/19/2014 [facility] B-12 1000 MCG CAPS Take one tablet by mouth once a day Active 06/19/2014 [facility] CALTRATE 600+D 600-400 MG-UNIT TABS 1 tablet twice daily Active 06/19/2014 [facility] ALENDRONATE SODIUM 35 MG TABS take one tablet by mouth once weekly with full glass of water and remain upright for 30 minutes Active 06/19/2014 [facility] AMLODIPINE BESYLATE 10 MG TABS Take one tablet by mouth once a day Active 06/19/2014 [facility] AMLODIPINE BESYLATE 10 MG TABS Take one tablet by mouth once a day Active 06/19/2014 [facility] ALENDRONATE SODIUM 35 MG TABS take one tablet by mouth once weekly with full glass of water and remain upright for 30 minutes Active 06/19/2014 [facility] METFORMIN HCL 500 MG TABS take one tablet by mouth twice a day Active 06/02/2014 [facility] LOSARTAN POTASSIUM-HCTZ 100-25 MG TABS take one tablet by mouth daily Active 06/02/2014 [facility] METOPROLOL SUCCINATE ER 25 MG [id number] take one tablet by mouth daily Active 06/02/2014 [facility] METFORMIN HCL 500 MG TABS take one tablet by mouth twice a day Active 06/02/2014 [facility] METOPROLOL SUCCINATE ER 25 MG [id number] take one tablet by mouth daily Active 06/02/2014 [facility] LOSARTAN POTASSIUM-HCTZ 100-25 MG TABS take one tablet by mouth daily No Longer Active 06/02/2014 [facility] METOPROLOL SUCCINATE ER 25 MG [id number] take one tablet by mouth daily Active 06/02/2014 [facility] Allergies, Adverse Reactions, Alerts Substance Category Reaction Severity Reaction type Status Date Reported Comments Source No Known Medication Allergies Assertion Drug allergy [facility] Immunizations Immunization Date Given Site Status Last Updated Comments Source pneumococcal 13-valent vaccine 09/22/2018 Right deltoid completed [facility] influenza virus vaccine, inactivated<sup>1</sup> 04/02/2018 Right Deltoid completed [facility] Result Comment: Patient waited in room ten mins no allergic reaction. [facility], JULIAN T[facility] influenza virus vaccine, inactivated<sup>1</sup> 02/01/2017 Left Deltoid completed [facility] Result Comment: Patient waited in room 10 mins, no allergic reaction. [facility] influenza virus vaccine, inactivated<sup>2</sup> 02/01/2017 Left Deltoid completed [facility] Result Comment: Patient waited in room 10 mins, no allergic reaction. [facility], JULIAN T[place],[facility] diphtheria/pertussis, acel/tetanus adult 12/16/2015 Left Deltoid completed [facility] diphtheria/pertussis, acel/tetanus adult 12/16/2015 Left Deltoid completed [facility], JULIAN Tabro,[facility] influenza virus vaccine, inactivated 04/29/2015 Left Deltoid completed [facility] influenza virus vaccine, inactivated 04/29/2015 Left Deltoid completed [facility], JULIAN T[place],[facility] pneumococcal immunization administered 06/02/2014 completed [facility] pneumococcal 23-valent vaccine<sup>1</sup> 06/02/2014 Left Deltoid completed [facility] Result Comment: pneumovax 23 [cvx33]. Migrated from OBS VIS: Pneumovax 23: 02-23-09 ; Data migrated from [employer] on 12/25/2014. [facility] pneumococcal 23-valent vaccine<sup>2</sup> 06/02/2014 Left Deltoid completed [facility] Result Comment: pneumovax 23 [cvx33]. Migrated from OBS VIS: Pneumovax 23: 02-23-09 ; Data migrated from [employer] on 12/25/2014. [facility] pneumococcal 23-valent vaccine<sup>3</sup> 06/02/2014 Left Deltoid completed [facility] Result Comment: pneumovax 23 [cvx33]. Migrated from OBS VIS: Pneumovax 23: 02-23-09 ; Data migrated from [employer] on 12/25/2014. [facility], JULIAN [facility],[facility] Results Order Name Results Value Reference Range Date Interpretation Comments Source ELECTROLYTES AGAP 9.3 meq/L 10.0 - 20.0 09/22/2018 [facility] ELECTROLYTES Sodium Lvl 140 meq/L 135 - 145 09/22/2018 [facility] ELECTROLYTES Calcium Lvl 8.9 mg/dL 8.5 - 10.5 09/22/2018 [facility] ELECTROLYTES Potassium Lvl 3.3 meq/L 3.5 - 5.1 09/22/2018 [facility] ELECTROLYTES Chloride Lvl 111 meq/L 95 - 109 09/22/2018 [facility] ELECTROLYTES CO2 23 meq/L 24 - 32 09/22/2018 [facility] ELECTROLYTES eGFR 77 mL/min/1.73m2 09/22/2018 Result Comment: The eGFR is calculated using the CKD-EPI formula. In most young, healthy individuals the eGFR will be >90 mL/min/1.73m2. The eGFR declines with age. An eGFR of 60-89 may be normal in some populations, particularly the elderly, for whom the CKD-EPI formula has not been extensively validated. Use of the eGFR is not recommended in the following populations: Individuals with unstable creatinine concentrations, including patients and those with serious co-morbid conditions. Patients with extremes in muscle mass or diet. The data above are obtained from the National Kidney Disease Education Program (NKDEP) which additionally recommends that when the eGFR is used in patients with extremes of body mass index for purposes of drug dosing, the eGFR should be multiplied by the estimated BMI. [facility] ELECTROLYTES Creatinine Lvl 0.76 mg/dL 0.50 - 1.40 09/22/2018 [facility] ELECTROLYTES BUN 9 mg/dL 7 - 22 09/22/2018 [facility] ELECTROLYTES Glucose Lvl 91 mg/dL 70 - 99 09/22/2018 [facility] HEMATOLOGY RBC 3.57 M/CMM 4.20 - 5.40 09/22/2018 [facility] HEMATOLOGY WBC 7.8 K/CMM 3.7 - 10.4 09/22/2018 [facility] HEMATOLOGY MCV 89.5 fL 80.0 - 98.0 09/22/2018 [facility] HEMATOLOGY MCH 29.7 pg 27.0 - 31.0 09/22/2018 [facility] HEMATOLOGY Platelet 383 K/CMM 133 - 450 09/22/2018 [facility] HEMATOLOGY RDW 13.9 % 11.5 - 14.5 09/22/2018 [facility] HEMATOLOGY MCHC 33.2 g/dL 32.0 - 36.0 09/22/2018 [facility] HEMATOLOGY MPV 8.4 fL 7.4 - 10.4 09/22/2018 [facility] HEMATOLOGY Hgb 10.6 g/dL 12.0 - 16.0 09/22/2018 [facility] HEMATOLOGY Hct 31.9 % 36.0 - 48.0 09/22/2018 [facility] ELECTROLYTES AGAP 10.7 meq/L 10.0 - 20.0 09/21/2018 [facility] ELECTROLYTES Glucose Lvl 92 mg/dL 70 - 99 09/21/2018 [facility] ELECTROLYTES eGFR 76 mL/min/1.73m2 09/21/2018 Result Comment: The eGFR is calculated using the CKD-EPI formula. In most young, healthy individuals the eGFR will be >90 mL/min/1.73m2. The eGFR declines with age. An eGFR of 60-89 may be normal in some populations, particularly the elderly, for whom the CKD-EPI formula has not been extensively validated. Use of the eGFR is not recommended in the following populations: Individuals with unstable creatinine concentrations, including patients and those with serious co-morbid conditions. Patients with extremes in muscle mass or diet. The data above are obtained from the National Kidney Disease Education Program (NKDEP) which additionally recommends that when the eGFR is used in patients with extremes of body mass index for purposes of drug dosing, the eGFR should be multiplied by the estimated BMI. [facility] ELECTROLYTES Calcium Lvl 8.6 mg/dL 8.5 - 10.5 09/21/2018 [facility] ELECTROLYTES CO2 26 meq/L 24 - 32 09/21/2018 [facility] ELECTROLYTES Chloride Lvl 107 meq/L 95 - 109 09/21/2018 [facility] ELECTROLYTES Potassium Lvl 3.7 meq/L 3.5 - 5.1 09/21/2018 [facility] ELECTROLYTES Creatinine Lvl 0.77 mg/dL 0.50 - 1.40 09/21/2018 [facility] ELECTROLYTES Sodium Lvl 140 meq/L 135 - 145 09/21/2018 [facility] ELECTROLYTES BUN 11 mg/dL 7 - 22 09/21/2018 [facility] HEMATOLOGY MPV 8.5 fL 7.4 - 10.4 09/21/2018 [facility] HEMATOLOGY Platelet 384 K/CMM 133 - 450 09/21/2018 [facility] HEMATOLOGY Hgb 10.9 g/dL 12.0 - 16.0 09/21/2018 [facility] HEMATOLOGY RBC 3.67 M/CMM 4.20 - 5.40 09/21/2018 [facility] HEMATOLOGY WBC 11.8 K/CMM 3.7 - 10.4 09/21/2018 [facility] HEMATOLOGY Hct 32.7 % 36.0 - 48.0 09/21/2018 [facility] HEMATOLOGY RDW 13.3 % 11.5 - 14.5 09/21/2018 [facility] HEMATOLOGY MCHC 33.2 g/dL 32.0 - 36.0 09/21/2018 [facility] HEMATOLOGY MCH 29.6 pg 27.0 - 31.0 09/21/2018 [facility] HEMATOLOGY MCV 89.2 fL 80.0 - 98.0 09/21/2018 [facility] CHEM PANEL Calcium Lvl 8.7 mg/dL 8.5 - 10.5 09/20/2018 [facility] CHEM PANEL CO2 23 meq/L 24 - 32 09/20/2018 [facility] CHEM PANEL Chloride Lvl 107 meq/L 95 - 109 09/20/2018 [facility] CHEM PANEL Potassium Lvl 3.6 meq/L 3.5 - 5.1 09/20/2018 [facility] CHEM PANEL Sodium Lvl 139 meq/L 135 - 145 09/20/2018 [facility] CHEM PANEL Creatinine Lvl 0.67 mg/dL 0.50 - 1.40 09/20/2018 [facility] CHEM PANEL eGFR 86 mL/min/1.73m2 09/20/2018 Result Comment: The eGFR is calculated using the CKD-EPI formula. In most young, healthy individuals the eGFR will be >90 mL/min/1.73m2. The eGFR declines with age. An eGFR of 60-89 may be normal in some populations, particularly the elderly, for whom the CKD-EPI formula has not been extensively validated. Use of the eGFR is not recommended in the following populations: Individuals with unstable creatinine concentrations, including patients and those with serious co-morbid conditions. Patients with extremes in muscle mass or diet. The data above are obtained from the National Kidney Disease Education Program (NKDEP) which additionally recommends that when the eGFR is used in patients with extremes of body mass index for purposes of drug dosing, the eGFR should be multiplied by the estimated BMI. [facility] CHEM PANEL Glucose Lvl 219 mg/dL 70 - 99 09/20/2018 [facility] CHEM PANEL BUN 10 mg/dL 7 - 22 09/20/2018 [facility] CHEM PANEL AGAP 12.6 meq/L 10.0 - 20.0 09/20/2018 [facility] HEMATOLOGY RDW 13.4 % 11.5 - 14.5 09/20/2018 [facility] HEMATOLOGY Platelet 381 K/CMM 133 - 450 09/20/2018 [facility] HEMATOLOGY MPV 8.1 fL 7.4 - 10.4 09/20/2018 [facility] HEMATOLOGY MCHC 33.2 g/dL 32.0 - 36.0 09/20/2018 [facility] HEMATOLOGY MCV 89.6 fL 80.0 - 98.0 09/20/2018 [facility] HEMATOLOGY MCH 29.7 pg 27.0 - 31.0 09/20/2018 [facility] HEMATOLOGY Hgb 11.9 g/dL 12.0 - 16.0 09/20/2018 [facility] HEMATOLOGY Hct 35.8 % 36.0 - 48.0 09/20/2018 [facility] HEMATOLOGY RBC 3.99 M/CMM 4.20 - 5.40 09/20/2018 [facility] HEMATOLOGY WBC 11.8 K/CMM 3.7 - 10.4 09/20/2018 [facility] CHEM PANEL A/G Ratio 0.7 0.7 - 1.6 09/18/2018 [facility] CHEM PANEL Globulin 3.6 g/dL 2.7 - 4.2 09/18/2018 [facility] CHEM PANEL Albumin Lvl 2.6 g/dL 3.5 - 5.0 09/18/2018 [facility] CHEM PANEL Alk Phos 49 unit/L 39 - 136 09/18/2018 [facility] CHEM PANEL Bili Total 1.2 mg/dL 0.2 - 1.3 09/18/2018 [facility] CHEM PANEL AST 22 unit/L 0 - 37 09/18/2018 [facility] CHEM PANEL ALT 28 unit/L 0 - 65 09/18/2018 [facility] CHEM PANEL Total Protein 6.2 g/dL 6.4 - 8.4 09/18/2018 [facility] CHEM PANEL B/C Ratio 12 6 - 25 09/18/2018 [facility] HEMATOLOGY Eosinophils # 0.1 K/CMM 0.0 - 0.5 09/18/2018 [facility] HEMATOLOGY Lymphocytes # 1.2 K/CMM 1.0 - 5.5 09/18/2018 [facility] HEMATOLOGY Monocytes # 1.1 K/CMM 0.0 - 0.8 09/18/2018 [facility] HEMATOLOGY Lymphocytes 11.7 % 20.0 - 40.0 09/18/2018 [facility] HEMATOLOGY Segs 76.4 % 45.0 - 75.0 09/18/2018 [facility] HEMATOLOGY Basophils 0.4 % 0.0 - 1.0 09/18/2018 [facility] HEMATOLOGY Neutrophils # 8.1 K/CMM 1.5 - 8.1 09/18/2018 [facility] HEMATOLOGY Eosinophils 1.2 % 0.0 - 4.0 09/18/2018 [facility] HEMATOLOGY Monocytes 10.3 % 2.0 - 12.0 09/18/2018 [facility] BLOOD BANK RESULTS Antibody Scrn Negative (09/17/18 8:20 PM) 09/18/2018 [facility] BLOOD BANK RESULTS ABO/Rh O POS 09/18/2018 [facility] Culture: Urine No Growth 09/18/2018 [facility] CHEM PANEL Albumin Lvl 3.0 g/dL 3.5 - 5.0 09/17/2018 [facility] CHEM PANEL B/C Ratio 13 6 - 25 09/17/2018 [facility] CHEM PANEL AST 37 unit/L 0 - 37 09/17/2018 [facility] CHEM PANEL ALT 35 unit/L 0 - 65 09/17/2018 [facility] CHEM PANEL Bili Total 1.3 mg/dL 0.2 - 1.3 09/17/2018 [facility] CHEM PANEL Alk Phos 56 unit/L 39 - 136 09/17/2018 [facility] CHEM PANEL Total Protein 6.5 g/dL 6.4 - 8.4 09/17/2018 [facility] CHEM PANEL A/G Ratio 0.9 0.7 - 1.6 09/17/2018 [facility] CHEM PANEL Globulin 3.5 g/dL 2.7 - 4.2 09/17/2018 [facility] HEMATOLOGY Eosinophils # 0.1 K/CMM 0.0 - 0.5 09/17/2018 [facility] HEMATOLOGY Monocytes # 1.1 K/CMM 0.0 - 0.8 09/17/2018 [facility] HEMATOLOGY Lymphocytes # 1.1 K/CMM 1.0 - 5.5 09/17/2018 [facility] HEMATOLOGY Monocytes 9.5 % 2.0 - 12.0 09/17/2018 [facility] HEMATOLOGY Neutrophils # 9.5 K/CMM 1.5 - 8.1 09/17/2018 [facility] HEMATOLOGY Eosinophils 1.1 % 0.0 - 4.0 09/17/2018 [facility] HEMATOLOGY Lymphocytes 9.0 % 20.0 - 40.0 09/17/2018 [facility] HEMATOLOGY Basophils 0.2 % 0.0 - 1.0 09/17/2018 [facility] HEMATOLOGY Segs 80.2 % 45.0 - 75.0 09/17/2018 [facility] Abdomen/Pelvis w IV contrast CT Abdomen/Pelvis w IV contrast CT EXAM: CT ABDOMEN AND PELVIS WITH CONTRAST DATE: 09/17/2018 17:29 CDT INDICATION: - CT of abdomen \\T\\ Pelvis w/ IV contrast and Rectal contrast, possible rectovaginal fistula ADDITIONAL INFORMATION: None. COMPARISON: None. TECHNIQUE: Volumetric CT acquisition of the abdomen and pelvis after the intravenous administration contrast. Axial, coronal and sagittal reconstructions. Postcontrast phases: Venous and delayed. IV contrast: 100.1 mL of Omnipaque 350 Oral contrast: None. Rectal contrast:: 50 mL of diluted Gastrografin DLP: [id number] FINDINGS: Lines and tubes: None. Lower thorax: Bibasilar atelectatic changes Liver: Normal. Biliary tree: No intra- or extrahepatic biliary ductal dilation. Gallbladder: Normal. No CT evidence of gallstones. Pancreas: Normal. Spleen: Normal. Adrenals: Normal. Kidneys and ureters: Normal. Bladder: Urinary bladder is catheterized and is collapsed. There is a loop within the urinary bladder lumen related to Prabhakar catheter. There is extravasation of rectal contrast through a defect in the anterior wall of the rectum, best seen on series 10 A, image 67 with extension of this extravasated contrast into an 8.1 x 4.1 cm collection then extends into the vaginal canal consistent with rectovaginal fistula and abscess formation. There is associated mild wall thickening involving the rectum and sigmoid colon. Moderate sized hiatal hernia. No small or large bowel dilation. Multiple air specks are seen within the retroperitoneum/ Lymph nodes: Normal. Vasculature: Atherosclerotic calcifications Bones: Degenerative changes Soft tissues: Normal. IMPRESSION: 1. Rectal contrast and fecal material seen within the cervix/vagina consistent with rectovaginal fistula. The contrast travels through a rectal defect seen on series 10 image 68 through a large contrast-filled cavity, likely representing abscess, into the vagina. 2. Multiple foci of free air seen within the right retroperitoneum. These findings were communicated to Dr. Moreland over the phone at 0517 hours 09/18/18. 09/17/2018 - - This report was dictated by a Director Of Construction/Fellow/Physician Retort Firer. I have personally reviewed the images as well as the interpretation and agree with the findings. Read by: Hari Worthington MD Resident/Fellow/Physician Retort Firer: Hari Worthington MD Dictated Date/time: 09/18/18 05:15 Electronically Signed by: Delia May MD 09/18/18 09:41 FINAL REPORT [facility] ELECTROLYTES AGAP 8.7 meq/L 10.0 - 20.0 09/10/2018 [facility] ELECTROLYTES eGFR 63 mL/min/1.73m2 09/10/2018 Result Comment: The eGFR is calculated using the CKD-EPI formula. In most young, healthy individuals the eGFR will be >90 mL/min/1.73m2. The eGFR declines with age. An eGFR of 60-89 may be normal in some populations, particularly the elderly, for whom the CKD-EPI formula has not been extensively validated. Use of the eGFR is not recommended in the following populations: Individuals with unstable creatinine concentrations, including patients and those with serious co-morbid conditions. Patients with extremes in muscle mass or diet. The data above are obtained from the National Kidney Disease Education Program (NKDEP) which additionally recommends that when the eGFR is used in patients with extremes of body mass index for purposes of drug dosing, the eGFR should be multiplied by the estimated BMI. [facility] ELECTROLYTES Potassium Lvl 3.7 meq/L 3.5 - 5.1 09/10/2018 [facility] ELECTROLYTES Chloride Lvl 106 meq/L 95 - 109 09/10/2018 [facility] ELECTROLYTES Calcium Lvl 8.2 mg/dL 8.5 - 10.5 09/10/2018 [facility] ELECTROLYTES CO2 30 meq/L 24 - 32 09/10/2018 [facility] ELECTROLYTES Creatinine Lvl 0.89 mg/dL 0.50 - 1.40 09/10/2018 [facility] ELECTROLYTES Sodium Lvl 141 meq/L 135 - 145 09/10/2018 [facility] ELECTROLYTES BUN 8 mg/dL 7 - 22 09/10/2018 [facility] ELECTROLYTES Glucose Lvl 109 mg/dL 70 - 99 09/10/2018 [facility] HEMATOLOGY MCHC 33.9 g/dL 32.0 - 36.0 09/10/2018 [facility] HEMATOLOGY RDW 13.5 % 11.5 - 14.5 09/10/2018 [facility] HEMATOLOGY Platelet 132 K/CMM 133 - 450 09/10/2018 [facility] HEMATOLOGY Hgb 10.6 g/dL 12.0 - 16.0 09/10/2018 [facility] HEMATOLOGY MPV 9.2 fL 7.4 - 10.4 09/10/2018 [facility] HEMATOLOGY MCH 30.9 pg 27.0 - 31.0 09/10/2018 [facility] HEMATOLOGY MCV 91.0 fL 80.0 - 98.0 09/10/2018 [facility] HEMATOLOGY Hct 31.3 % 36.0 - 48.0 09/10/2018 [facility] HEMATOLOGY RBC 3.44 M/CMM 4.20 - 5.40 09/10/2018 [facility] HEMATOLOGY WBC 9.9 K/CMM 3.7 - 10.4 09/10/2018 [facility] HEMATOLOGY Monocytes 5.3 % 2.0 - 12.0 09/10/2018 [facility] HEMATOLOGY Lymphocytes 10.3 % 20.0 - 40.0 09/10/2018 [facility] HEMATOLOGY Neutrophils # 8.3 K/CMM 1.5 - 8.1 09/10/2018 [facility] HEMATOLOGY Segs 83.8 % 45.0 - 75.0 09/10/2018 [facility] HEMATOLOGY Lymphocytes # 1.0 K/CMM 1.0 - 5.5 09/10/2018 [facility] HEMATOLOGY Monocytes # 0.5 K/CMM 0.0 - 0.8 09/10/2018 [facility] HEMATOLOGY Eosinophils 0.1 % 0.0 - 4.0 09/10/2018 [facility] HEMATOLOGY Basophils 0.5 % 0.0 - 1.0 09/10/2018 [facility] CHEM PANEL eGFR 73 mL/min/1.73m2 09/10/2018 Result Comment: The eGFR is calculated using the CKD-EPI formula. In most young, healthy individuals the eGFR will be >90 mL/min/1.73m2. The eGFR declines with age. An eGFR of 60-89 may be normal in some populations, particularly the elderly, for whom the CKD-EPI formula has not been extensively validated. Use of the eGFR is not recommended in the following populations: Individuals with unstable creatinine concentrations, including patients and those with serious co-morbid conditions. Patients with extremes in muscle mass or diet. The data above are obtained from the National Kidney Disease Education Program (NKDEP) which additionally recommends that when the eGFR is used in patients with extremes of body mass index for purposes of drug dosing, the eGFR should be multiplied by the estimated BMI. [facility] CHEM PANEL Chloride Lvl 107 meq/L 95 - 109 09/10/2018 [facility] CHEM PANEL Calcium Lvl 8.1 mg/dL 8.5 - 10.5 09/10/2018 [facility] CHEM PANEL AGAP 8.6 meq/L 10.0 - 20.0 09/10/2018 [facility] CHEM PANEL CO2 28 meq/L 24 - 32 09/10/2018 [facility] CHEM PANEL BUN 9 mg/dL 7 - 22 09/10/2018 [facility] CHEM PANEL Glucose Lvl 106 mg/dL 70 - 99 09/10/2018 [facility] CHEM PANEL Creatinine Lvl 0.79 mg/dL 0.50 - 1.40 09/10/2018 [facility] CHEM PANEL Potassium Lvl 3.6 meq/L 3.5 - 5.1 09/10/2018 [facility] CHEM PANEL Sodium Lvl 140 meq/L 135 - 145 09/10/2018 [facility] HEMATOLOGY MCV 91.6 fL 80.0 - 98.0 09/10/2018 [facility] HEMATOLOGY Hct 31.7 % 36.0 - 48.0 09/10/2018 [facility] HEMATOLOGY Hgb 10.5 g/dL 12.0 - 16.0 09/10/2018 [facility] HEMATOLOGY RDW 13.3 % 11.5 - 14.5 09/10/2018 [facility] HEMATOLOGY Platelet 151 K/CMM 133 - 450 09/10/2018 [facility] HEMATOLOGY MCH 30.2 pg 27.0 - 31.0 09/10/2018 [facility] HEMATOLOGY MCHC 33.0 g/dL 32.0 - 36.0 09/10/2018 [facility] HEMATOLOGY WBC 12.3 K/CMM 3.7 - 10.4 09/10/2018 [facility] HEMATOLOGY RBC 3.46 M/CMM 4.20 - 5.40 09/10/2018 [facility] HEMATOLOGY MPV 10.2 fL 7.4 - 10.4 09/10/2018 [facility] HEMATOLOGY Neutrophils # 10.5 K/CMM 1.5 - 8.1 09/10/2018 [facility] HEMATOLOGY Monocytes 6.7 % 2.0 - 12.0 09/10/2018 [facility] HEMATOLOGY Basophils 0.1 % 0.0 - 1.0 09/10/2018 [facility] HEMATOLOGY Monocytes # 0.8 K/CMM 0.0 - 0.8 09/10/2018 [facility] HEMATOLOGY Lymphocytes # 0.9 K/CMM 1.0 - 5.5 09/10/2018 [facility] HEMATOLOGY Lymphocytes 7.6 % 20.0 - 40.0 09/10/2018 [facility] HEMATOLOGY Segs 85.6 % 45.0 - 75.0 09/10/2018 [facility] URINE CHEM U Creatinine 172.00 mg/dL 09/10/2018 [facility] URINE CHEM U Sodium 45 meq/L 09/10/2018 [facility] CHEM PANEL eGFR 44 mL/min/1.73m2 09/10/2018 Result Comment: The eGFR is calculated using the CKD-EPI formula. In most young, healthy individuals the eGFR will be >90 mL/min/1.73m2. The eGFR declines with age. An eGFR of 60-89 may be normal in some populations, particularly the elderly, for whom the CKD-EPI formula has not been extensively validated. Use of the eGFR is not recommended in the following populations: Individuals with unstable creatinine concentrations, including patients and those with serious co-morbid conditions. Patients with extremes in muscle mass or diet. The data above are obtained from the National Kidney Disease Education Program (NKDEP) which additionally recommends that when the eGFR is used in patients with extremes of body mass index for purposes of drug dosing, the eGFR should be multiplied by the estimated BMI. [facility] CHEM PANEL Bili Total 0.9 mg/dL 0.2 - 1.3 09/10/2018 [facility] CHEM PANEL Glucose Lvl 260 mg/dL 70 - 99 09/10/2018 [facility] CHEM PANEL Creatinine Lvl 1.21 mg/dL 0.50 - 1.40 09/10/2018 [facility] CHEM PANEL Chloride Lvl 106 meq/L 95 - 109 09/10/2018 [facility] CHEM PANEL BUN 10 mg/dL 7 - 22 09/10/2018 [facility] CHEM PANEL Potassium Lvl 3.7 meq/L 3.5 - 5.1 09/10/2018 [facility] CHEM PANEL Sodium Lvl 139 meq/L 135 - 145 09/10/2018 [facility] CHEM PANEL CO2 22 meq/L 24 - 32 09/10/2018 [facility] CHEM PANEL Calcium Lvl 8.1 mg/dL 8.5 - 10.5 09/10/2018 [facility] CHEM PANEL Alk Phos 47 unit/L 39 - 136 09/10/2018 [facility] CHEM PANEL AST 32 unit/L 0 - 37 09/10/2018 [facility] CHEM PANEL Total Protein 6.1 g/dL 6.4 - 8.4 09/10/2018 [facility] CHEM PANEL AGAP 14.7 meq/L 10.0 - 20.0 09/10/2018 [facility] CHEM PANEL B/C Ratio 8 6 - 25 09/10/2018 [facility] CHEM PANEL Albumin Lvl 3.2 g/dL 3.5 - 5.0 09/10/2018 [facility] CHEM PANEL ALT 22 unit/L 0 - 65 09/10/2018 [facility] CHEM PANEL A/G Ratio 1.1 0.7 - 1.6 09/10/2018 [facility] CHEM PANEL Globulin 2.9 g/dL 2.7 - 4.2 09/10/2018 [facility] HEMATOLOGY Lymphocytes # 0.5 K/CMM 1.0 - 5.5 09/10/2018 [facility] HEMATOLOGY Monocytes # 0.7 K/CMM 0.0 - 0.8 09/10/2018 [facility] HEMATOLOGY Neutrophils # 10.8 K/CMM 1.5 - 8.1 09/10/2018 [facility] HEMATOLOGY Monocytes 5.7 % 2.0 - 12.0 09/10/2018 [facility] HEMATOLOGY Lymphocytes 3.9 % 20.0 - 40.0 09/10/2018 [facility] HEMATOLOGY Plt Morph Normal (09/09/18 7:13 PM) Normal 09/10/2018 [facility] HEMATOLOGY Segs 90.4 % 45.0 - 75.0 09/10/2018 [facility] HEMATOLOGY RBC Morph Normal (09/09/18 7:13 PM) Normal 09/10/2018 [facility] HEMATOLOGY MCHC 33.0 g/dL 32.0 - 36.0 09/10/2018 [facility] HEMATOLOGY MCH 30.3 pg 27.0 - 31.0 09/10/2018 [facility] HEMATOLOGY MCV 91.8 fL 80.0 - 98.0 09/10/2018 [facility] HEMATOLOGY Platelet 162 K/CMM 133 - 450 09/10/2018 [facility] HEMATOLOGY MPV 9.9 fL 7.4 - 10.4 09/10/2018 [facility] HEMATOLOGY RDW 13.3 % 11.5 - 14.5 09/10/2018 [facility] HEMATOLOGY Hgb 11.6 g/dL 12.0 - 16.0 09/10/2018 [facility] HEMATOLOGY Hct 35.3 % 36.0 - 48.0 09/10/2018 [facility] HEMATOLOGY RBC 3.85 M/CMM 4.20 - 5.40 09/10/2018 [facility] HEMATOLOGY WBC 11.9 K/CMM 3.7 - 10.4 09/10/2018 [facility] BLOOD BANK RESULTS ABO/Rh O POS 09/09/2018 [facility] BLOOD BANK RESULTS Antibody Scrn Negative (09/09/18 6:32 AM) 09/09/2018 [facility] HEMATOLOGY Eosinophils # 0.2 K/CMM 0.0 - 0.5 09/09/2018 [facility] HEMATOLOGY Eosinophils 2.8 % 0.0 - 4.0 09/09/2018 [facility] HEMATOLOGY Basophils 0.7 % 0.0 - 1.0 09/09/2018 [facility] Breast Mammo Scrn KIEL incl CAD MA Breast Mammo Scrn KIEL incl CAD MA BILATERAL DIGITAL SCREENING MAMMOGRAM WITH CAD: 08/28/2018 CLINICAL: /Routine. Current study was evaluated with a Computer Aided Detection (CAD) system. COMPARISON:Comparison is made to exams dated: 08/22/2017 mammogram, 12/31/2015 mammogram - [facility], 06/11/2014 mammogram, and 09/21/2004 mammogram. TECHNIQUE: Mammographic views were obtained using digital acquisition. Spotlight Version 1.3 was utilized for computer aided detection. FINDINGS: The tissue of both breasts is almost entirely fat. There is a benign calcification in the left breast. There also are benign calcifications in the right breast. No significant masses, calcifications, or other findings are seen in either breast. There has been no significant interval change. IMPRESSION: BENIGN RECOMMENDATION:There is no mammographic evidence of malignancy. A 1 year screening mammogram is recommended.(08/29/2019) This exam was interpreted at [id number] for [facility]. Joaquin vigil/yoan:08/28/2018 13:18:25 [employer] Lead(s): Kathleen Naranjo [facility] letter sent: BI-RADS 1/2 Mammogram BI-RADS: 2 Benign 08/28/2018 - - Read by: Joaquin Key MD Dictated Date/time: 08/28/18 13:18 Electronically Signed by: Joaquin Key MD 08/28/18 13:18 FINAL REPORT [facility] Bone Density Scan Bone Density Scan Study: Bone Density Scan Clinical Indication: Osteoporosis screening; Images of the axial lumbar spine and left hip have been performed using [employer] scanner. COMPARISON: 08/11/2016 FINDINGS: The left hip bone mineral density is 93% of the peak reference bone mass with a T-score of -0.5. Left hip BMD is 0.892 g/cm2. Left femoral neck BMD is 0.680 g/cm2 and T-score of -1.6. Left hip BMD has increased 2.3% since previous exam. The axial lumbar bone mineral density is 104% of the peak reference bone mass with a T-score of 0.4. Axial lumbar average BMD is 1.093 g/cm2. Lumbar spine BMD has increased 11.8% since previous exam. 10 year fracture risk without prior fracture with prior fracture Major osteoporotic fracture 6.7% 10% Hip fracture 1.4% 1.9% IMPRESSION: 1. Osteopenia of the left femoral neck. 2. Normal bone mineral density of the total left hip. 3. Normal bone mineral density of the lumbar spine. The World Health Organization has established that OSTEOPOROSIS occurs at -2.5 or more standard deviations (SD) below peak bone mass (T-score on the Hologic report). OSTEOPENIA (low bone mass) occurs at greater than -1.0 standard deviations to -2.5 standard deviations below peak bone mass. SL: [id number] 08/28/2018 - - Read by: Abisai Borjas MD Dictated Date/time: 08/28/18 11:37 Electronically Signed by: Abisai Borjas MD 08/28/18 11:38 FINAL REPORT [facility] Shoulder series DX Shoulder series DX Right shoulder 3 views DX, 08/19/2018 12:18 CDT HISTORY: - M25.511 Pain in right shoulder COMPARISON: None FINDINGS: No evidence for acute fracture. Humeral head is intact and located. Moderate acromioclavicular arthrosis. Soft tissues unremarkable. IMPRESSION: No acute osseous abnormality. Moderate acromioclavicular osteoarthrosis. 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 COMPARISON: None. TECHNIQUE: Multiplanar grayscale and color Doppler ultrasound images of the kidneys, aorta, IVC and urinary bladder. DISCUSSION: Right kidney Hydronephrosis: None. Size: 9.5 x 4.2 x 3.5 cm Echogenicity: Normal. Parenchymal thickness and contour: Normal. Calculi: A 0.2 cm hyperechoic focus with shadowing and twinkle artifact seen in the lower pole medullary region of right kidney and possibly represent small parenchymal calcification. Cysts: None. Masses: None. Left kidney Hydronephrosis: None. Size: 10.5 x 4.8 x 4.6 cm Echogenicity: Normal. Parenchymal thickness and contour: Normal. Calculi: None. Cysts: None. Masses: None. Bladder: Urinary bladder is mildly distended. Ureteral jets seen bilaterally. IMPRESSION: 1. No hydronephrosis. 2. A 0.2 cm punctate calcification in the right kidney lower pole parenchyma in the medullary region. 07/16/2018 - - Read by: Kiran Hernanedz Dictated Date/time: 07/16/18 14:05 Electronically Signed by: Kiran Hernandez 07/16/18 14:09 FINAL REPORT [facility] Troponin-I null 0.00 - 0.40 10/21/2017 [facility] CARDIAC ENZYMES CK MB 2.0 ng/mL 0.5 - 3.6 10/21/2017 [facility] eGFR 52 mL/min/1.73m2 10/21/2017 Result Comment: The eGFR is calculated using the CKD-EPI formula. In most young, healthy individuals the eGFR will be >90 mL/min/1.73m2. The eGFR declines with age. An eGFR of 60-89 may be normal in some populations, particularly the elderly, for whom the CKD-EPI formula has not been extensively validated. Use of the eGFR is not recommended in the following populations: Individuals with unstable creatinine concentrations, including patients and those with serious co-morbid conditions. Patients with extremes in muscle mass or diet. The data above are obtained from the National Kidney Disease Education Program (NKDEP) which additionally recommends that when the eGFR is used in patients with extremes of body mass index for purposes of drug dosing, the eGFR should be multiplied by the estimated BMI. [facility] CHEM PANEL Creatinine Lvl 1.05 mg/dL 0.50 - 1.40 10/21/2017 [facility] CHEM PANEL Glucose Lvl 134 mg/dL 70 - 99 10/21/2017 [facility] CHEM PANEL BUN 12 mg/dL 7 - 22 10/21/2017 [facility] CHEM PANEL Calcium Lvl 9.0 mg/dL 8.5 - 10.5 10/21/2017 [facility] CHEM PANEL CO2 27 meq/L 24 - 32 10/21/2017 [facility] CHEM PANEL Sodium Lvl 141 meq/L 135 - 145 10/21/2017 [facility] CHEM PANEL Potassium Lvl 4.0 meq/L 3.5 - 5.1 10/21/2017 [facility] CHEM PANEL Chloride Lvl 105 meq/L 95 - 109 10/21/2017 [facility] CHEM PANEL AGAP 13.0 meq/L 10.0 - 20.0 10/21/2017 [facility] HEMATOLOGY MPV 9.4 fL 7.4 - 10.4 10/21/2017 [facility] Hgb 14.3 g/dL 12.0 - 16.0 10/21/2017 [facility] Hct 42.8 % 36.0 - 48.0 10/21/2017 [facility] RBC 4.85 M/CMM 4.20 - 5.40 10/21/2017 [facility] WBC 6.6 K/CMM 3.7 - 10.4 10/21/2017 [facility] RDW 13.2 % 11.5 - 14.5 10/21/2017 [facility] MCV 88.3 fL 80.0 - 98.0 10/21/2017 [facility] MCHC 33.4 g/dL 32.0 - 36.0 10/21/2017 [facility] Platelet 173 K/CMM 133 - 450 10/21/2017 [facility] MCH 29.5 pg 27.0 - 31.0 10/21/2017 [facility] Lymphocytes 22.9 % 20.0 - 40.0 10/21/2017 [facility] Basophils 0.6 % 0.0 - 1.0 10/21/2017 [facility] Monocytes 7.6 % 2.0 - 12.0 10/21/2017 [facility] Eosinophils 2.7 % 0.0 - 4.0 10/21/2017 [facility] Monocytes # 0.5 K/CMM 0.0 - 0.8 10/21/2017 [facility] Eosinophils # 0.2 K/CMM 0.0 - 0.5 10/21/2017 [facility] Lymphocytes # 1.5 K/CMM 1.0 - 5.5 10/21/2017 [facility] Segs-Bands # 4.3 K/CMM 1.5 - 8.1 10/21/2017 [facility] HEMATOLOGY Segs 66.2 % 45.0 - 75.0 10/21/2017 [facility] Shoulder series DX Shoulder series DX Exam: Left Shoulder series DX Clinical Indication: - fall Comparison: None FINDINGS: 3 views of the left shoulder are performed. No acute fracture identified. The glenohumeral and acromioclavicular joints are anatomically aligned. Moderate degenerative changes present in the acromioclavicular joint. The visualized scapula and clavicle are unremarkable. The soft tissues are unremarkable. No radiopaque foreign body. IMPRESSION: No acute osseous abnormality of the left shoulder. SL: [id number] 10/21/2017 - - Read by: Tc Aldana MD Dictated Date/time: 10/21/17 12:14 Electronically Signed by: Tc Aldana MD 10/21/17 12:15 FINAL REPORT [facility] Chest 1view DX Chest 1view DX Chest 1view DX 77 years old Female Clinical Indication: - dizziness; Comparison: None FINDINGS: Tubes, lines, hardware: None. LUNGS: The volume of the lungs is normal. There is no evidence of consolidation. No pleural effusion is noted. The pulmonary vasculature is within normal limits. MEDIASTINUM: The cardiac silhouette is probably normal for this AP lordotic projection. CHEST WALL: Unremarkable. SKELETON: The visualized osseous structures are unremarkable. IMPRESSION: 1. No radiographic evidence of acute cardiopulmonary disease. SL: [id number] 10/21/2017 - - Read by: Royal Dove MD Dictated Date/time: 10/21/17 12:17 Electronically Signed by: Royal Dove MD 10/21/17 12:17 FINAL REPORT [facility] Brain wo contrast CT Brain wo contrast CT CT HEAD WITHOUT CONTRAST: HISTORY: Dizziness, falling. PROCEDURE: Multiple axial images from the skull base to the skull vertex were obtained without contrast. Coronal and sagittal reconstructed images were performed. DLP: 859 mGy-cm COMPARISON: None FINDINGS: 3.2 cm partially calcified extra-axial mass within the left frontal region is noted. No acute hemorrhage, midline shift, extra-axial fluid collection, or hydrocephalus is present. Lomeli-white differentiation appears normal. No sulcal effacement to suggest acute infarct is present. The visualized mastoid air cells are clear. There is no air-fluid level in the visualized paranasal sinuses. Right sphenoid sinus opacification is noted. Thickening of the hinton is suggestive of chronic sinusitis. Mild distal internal carotid arterial calcifications are present. Posterior scalp soft tissue swe lling is noted. No calvarial fracture is present. IMPRESSION: 1. No acute intracranial abnormality. 2. 3.2 cm partially calcified extra-axial mass in left frontal region suggestive of meningioma. 3. Posterior scalp soft tissue swelling. No underlying calvarial fracture. 4. Chronic right sphenoid sinusitis. SL: [id number] 10/21/2017 - - Read by: Tor Ridley MD Dictated Date/time: 10/21/17 12:12 Electronically Signed by: Tor Ridley MD 10/21/17 12:15 FINAL REPORT [facility] Breast Mammo Scrn KIEL w le incl CAD [place] Breast Mammo Scrn KIEL w le incl CAD MA BILATERAL DIGITAL SCREENING MAMMOGRAM 3D/2D WITH CAD: 08/22/2017 CLINICAL: /Routine. Current study was evaluated with a Computer Aided Detection (CAD) system. COMPARISON:Comparison is made to exams dated: 12/31/2015 mammogram - [facility] and 06/11/2014 mammogram. TECHNIQUE: Digital Breast Tomosynthesis was performed and utilized for Interpretation. Metconne[employer] Version 1.3 was utilized for computer aided detection. FINDINGS: The tissue of both breasts is almost entirely fat. There is a benign calcification in the left breast. There also are benign calcifications in the right breast. No significant masses, calcifications, or other findings are seen in either breast. There has been no significant interval change. IMPRESSION: BENIGN RECOMMENDATION:There is no mammographic evidence of malignancy. A 1 year screening mammogram is recommended.(08/23/2018) This exam was interpreted at [id number] for [facility] [place]. Joaquin vigil/yoan:08/22/2017 09:09:55 [employer] Lead(s): Kathleen Naranjo [facility] letter sent: BI-RADS 1/2 Mammogram BI-RADS: 2 Benign 08/22/2017 - - Read by: Joaquin Key MD Dictated Date/time: 08/22/17 09:09 Electronically Signed by: Joaquin Key MD 08/22/17 09:09 FINAL REPORT [facility] Bone Density Scan Bone Density Scan Patient Name: GIDEON OSUNA : 1940; Age: 76 years y/o Female MR: [id number] Study: Bone Density Scan 08/11/2016 10:19 AM CDT Clinical Indication: osteoporosis - osteoporosis. COMPARISON: None FINDINGS: The axial lumbar bone mineral density is 93% of the expected age matched bone mass with a T-score -0.6. Axial lumbar average BMD is 0.98 g/cm2. The left femoral neck bone mineral density is 76% of the expected age matched bone mass with a T-score of -1.8. Left femoral neck BMD is 0.67 g/cm2. The total femoral BMD is 0.87 g/cm2. IMPRESSION: 1. Normal bone mineral density of the lumbar spine. 2. Osteopenia of the left femoral neck. The World Health Organization has established that OSTEOPOROSIS occurs at -2.5 or more standard deviations (SD) below peak bone mass. OSTEOPENIA (low bone mass) occurs at -1.0 standard deviations to -2.5 standard deviations below peak bone mass. SL: [id number] 08/11/2016 - - Read by: Dominick Valderrama MD Dictated Date/time: 08/11/16 13:20 Electronically Signed by: Dominick Valderrama MD 08/11/16 13:21 FINAL REPORT [facility] Digital Mammo Screening Kiel MA Digital Mammo Screening Kiel MA - DIGITAL MAMMO SCREENING KIEL MA BILATERAL DIGITAL SCREENING MAMMOGRAM WITH CAD: 12/31/2015 CLINICAL: Routine. Current study was evaluated with a Computer Aided Detection (CAD) system. Comparison is made to exams dated: 06/11/2014 mammogram and 09/21/2004 mammogram. The tissue of both breasts is almost entirely fat. There are benign calcifications in the right breast. There also is a benign calcification in the left breast. No significant masses, calcifications, or other findings are seen in either breast. There has been no significant interval change. IMPRESSION: BENIGN There is no mammographic evidence of malignancy. A 1 year screening mammogram is recommended. Joaquin vigil/yoan:01/06/2016 08:28:39 [employer] Lead: Kayla Shah, [facility] This exam was dictated and interpreted by [id number] for [facility]. letter sent: Normal exam Mammogram BI-RADS: 2 Benign 12/31/2015 - - Read by: Joaquin Key MD Dictated Date/time: 01/06/16 08:28 Electronically Signed by: Joaquin Key MD 01/06/16 08:28 FINAL REPORT [facility] Urinalysis UA COLOR Light Yellow 12/10/2014 [facility] Chemistry HEMOCCULT Negative 06/08/2014 [facility] Chemistry HEMOCCULT Negative 06/08/2014 [facility] Chemistry HEMOCCULT Negative 06/07/2014 [facility] Chemistry HEMOCCULT Negative 06/07/2014 [facility] Chemistry HEMOCCULT Negative 06/06/2014 [facility] Chemistry HEMOCCULT Negative 06/06/2014 [facility] Chemistry HGBA1C 6.8 % - 5.6 06/03/2014 [facility] Chemistry HGBA1C 6.8 % - 5.6 06/03/2014 [facility] Chemistry TSH 0.618 uIU/mL 0.360 - 3.740 06/03/2014 [facility] Chemistry CHOLESTEROL 207 mg/dl - 199 06/03/2014 [facility] Chemistry TRIGLYCERIDE 148 mg/dl - 149 06/03/2014 [facility] Chemistry HDL 59 mg/dl >=61 06/03/2014 [facility] Chemistry LDL 118 mg/dl - 99 06/03/2014 [facility] Chemistry SODIUM 140 MEQ/L mmol/L 135 - 145 06/03/2014 [facility] Chemistry POTASSIUM 3.5 MEQ/L mmol/L 3.5 - 5.1 06/03/2014 [facility] Chemistry CREATININE 0.8 mg/dL 0.5 - 1.4 06/03/2014 [facility] Chemistry BUN 13 mg/dL 7 - 22 06/03/2014 [facility] Chemistry BUN/CREAT 16 6 - 25 06/03/2014 [facility] Chemistry ALBUMIN 4.2 g/dL 3.5 - 5.0 06/03/2014 [facility] Chemistry CALCIUM 8.6 mg/dL 8.5 - 10.5 06/03/2014 [facility] Chemistry SGPT (ALT) 37 U/L 0 - 65 06/03/2014 [facility] Chemistry SGOT (AST) 28 U/L 0 - 37 06/03/2014 [facility] Chemistry ALK PHOS 69 U/L 39 - 136 06/03/2014 [facility] Hematology HGB 15.3 g/dL 12.0 - 16.0 06/03/2014 [facility] Hematology HCT 47.2 % 36.0 - 48.0 06/03/2014 [facility] Hematology PLATELETS 176 K/CMM /mm3 133 - 450 06/03/2014 [facility] Serology RPR Non Reactive 06/03/2014 [facility] Serology RPR Non Reactive 06/03/2014 [facility] Serology RPR Non Reactive 06/03/2014 [facility] Urinalysis UA COLOR Yellow 06/03/2014 [facility] Urinalysis BACTERIA URN Few 06/03/2014 [facility] Vital Signs Vital Sign Value Date Comments Source Temperature Oral (F) 97.5 F 09/22/2018 [facility] Systolic (mm Hg) 156 09/22/2018 [facility] Diastolic (mm Hg) 72 09/22/2018 [facility] Respitory Rate 18 09/22/2018 [facility] Heart Rate 74 09/22/2018 [facility] Systolic (mm Hg) 156 09/22/2018 [facility] Diastolic (mm Hg) 69 09/22/2018 [facility] Systolic (mm Hg) 167 09/22/2018 [facility] Diastolic (mm Hg) 68 09/22/2018 [facility] Heart Rate 68 09/22/2018 [facility] Respitory Rate 17 09/22/2018 [facility] Temperature Oral (F) 98.3 F 09/22/2018 [facility] Temperature Oral (F) 98 F 09/22/2018 [facility] Heart Rate 75 09/22/2018 [facility] Respitory Rate 17 09/22/2018 [facility] BMI Calculated 34.47 09/17/2018 [facility] Weight 80.057 09/17/2018 [facility] Height 152.4 cm 09/17/2018 [facility] Temperature Oral (F) 98.8 F 09/10/2018 [facility] Heart Rate 80 09/10/2018 [facility] Systolic (mm Hg) 147 09/10/2018 [facility] Diastolic (mm Hg) 64 09/10/2018 [facility] Respitory Rate 16 09/10/2018 [facility] Respitory Rate 16 09/10/2018 [facility] Systolic (mm Hg) 134 09/10/2018 [facility] Diastolic (mm Hg) 64 09/10/2018 [facility] Temperature Oral (F) 98.2 F 09/10/2018 [facility] Heart Rate 73 09/10/2018 [facility] Respitory Rate 16 09/10/2018 [facility] Systolic (mm Hg) 144 09/10/2018 [facility] Diastolic (mm Hg) 66 09/10/2018 [facility] Heart Rate 72 09/10/2018 [facility] Temperature Oral (F) 98.2 F 09/10/2018 [facility] Height 152.4 cm 09/09/2018 [facility] Weight 80 09/09/2018 [facility] BMI Calculated 34.44 09/09/2018 [facility] Systolic (mm Hg) 147 08/23/2018 [facility] Diastolic (mm Hg) 72 08/23/2018 [facility] Heart Rate 89 08/23/2018 [facility] Weight 80.909 08/16/2018 [facility] BMI Calculated 34.84 08/16/2018 [facility] Height 152.4 cm 08/16/2018 [facility] Heart Rate 76 08/16/2018 [facility] Systolic (mm Hg) 144 08/16/2018 [facility] Diastolic (mm Hg) 72 08/16/2018 [facility] Respitory Rate 16 08/16/2018 [facility] Temperature Oral (F) 97.0 F 08/16/2018 [facility] Systolic (mm Hg) 165 12/24/2017 [facility] Diastolic (mm Hg) 72 12/24/2017 [facility] BMI Calculated 30.52 12/24/2017 [facility] Weight 83.182 12/24/2017 [facility] Height 165.1 cm 12/24/2017 [facility] Heart Rate 62 12/24/2017 [facility] Respitory Rate 16 12/24/2017 [facility] Temperature Oral (F) 98.8 F 12/24/2017 [facility] Systolic (mm Hg) 179 12/24/2017 [facility] Diastolic (mm Hg) 75 12/24/2017 [facility] Systolic (mm Hg) 184 10/21/2017 [facility] Diastolic (mm Hg) 81 10/21/2017 [facility] Respitory Rate 18 10/21/2017 [facility] Respitory Rate 24 10/21/2017 [facility] Systolic (mm Hg) 196 10/21/2017 [facility] Diastolic (mm Hg) 104 10/21/2017 [facility] Systolic (mm Hg) 200 10/21/2017 [facility] Diastolic (mm Hg) 88 10/21/2017 [facility] Respitory Rate 20 10/21/2017 [facility] Heart Rate 87 10/21/2017 [facility] Weight 72.727 10/21/2017 [facility] Temperature Oral (F) 98.1 F 10/21/2017 [facility] BMI Calculated 31.31 10/21/2017 [facility] Height 152.4 cm 10/21/2017 [facility] BMI Calculated 34.05 08/30/2017 [facility] Weight 79.091 08/30/2017 [facility] Height 152.4 cm 08/30/2017 [facility] Respitory Rate 16 08/30/2017 [facility] Temperature Oral (F) 98.5 F 08/30/2017 [facility] Heart Rate 67 08/30/2017 [facility] Systolic (mm Hg) 156 08/30/2017 [facility] Diastolic (mm Hg) 63 08/30/2017 [facility] Systolic (mm Hg) 174 08/02/2017 [facility] Diastolic (mm Hg) 72 08/02/2017 [facility] Weight 78.636 08/02/2017 [facility] BMI Calculated 33.86 08/02/2017 [facility] Height 152.4 cm 08/02/2017 [facility] Temperature Oral (F) 97.2 F 08/02/2017 [facility] Respitory Rate 16 08/02/2017 [facility] Heart Rate 80 08/02/2017 [facility] Systolic (mm Hg) 209 08/02/2017 [facility] Diastolic (mm Hg) 90 08/02/2017 [facility] Height 60 12/09/2014 [facility] Weight 180 12/09/2014 [facility] Temperature Oral (F) 97.0 F 12/09/2014 [facility] Respitory Rate 14 12/09/2014 [facility] Heart Rate 65 12/09/2014 [facility] Systolic (mm Hg) 167 12/09/2014 [facility] Diastolic (mm Hg) 85 12/09/2014 [facility] Systolic (mm Hg) 180 06/19/2014 [facility] Diastolic (mm Hg) 89 06/19/2014 [facility] Respitory Rate 16 06/19/2014 [facility] Temperature Oral (F) 97.6 F 06/19/2014 [facility] Heart Rate 66 06/19/2014 [facility] Height 60 06/19/2014 [facility] Weight 179.13 06/19/2014 [facility] Temperature Oral (F) 97.3 F 06/02/2014 [facility] Respitory Rate 16 06/02/2014 [facility] Weight 181 06/02/2014 [facility] Height 60 06/02/2014 [facility] Systolic (mm Hg) 170 06/02/2014 [facility] Diastolic (mm Hg) 88 06/02/2014 [facility] Heart Rate 92 06/02/2014 [facility] Encounters Location Location Details Encounter Type Encounter Number Reason For Visit Attending Provider ADM Date DC Date Status Source [facility] Office Visit [id number] Wiley Enamorado MD 06/02/2014 06/02/2014 Medical [facility] Lab Report [id number] Wiley Enamorado MD 06/03/2014 06/03/2014 Medical [facility] Lab Report [id number] Wiley Enamorado MD 06/03/2014 06/03/2014 Medical [facility] Lab Report [id number] Wiley Enamorado MD 06/08/2014 06/08/2014 Medical [facility] Office Visit [id number] Wiley Enamorado MD 06/19/2014 06/19/2014 Medical [facility] Office Visit [id number] Wiley Enamorado MD 12/09/2014 12/09/2014 [facility] Outpatient [id number] WILEY ENAMORADO 12/09/2014 Active [facility] Lab Report [id number] Wiley Enamorado MD 12/10/2014 12/10/2014 Medical [facility] Lab Report [id number] Wiley Enamorado MD 12/10/2014 12/10/2014 Medical [facility] Office Visit [id number] Wiley Enamorado MD 01/21/2015 01/21/2015 [facility] Outpatient [id number] WILEY ENAMORADO 01/21/2015 Active [facility] Outpatient [id number] GIDEON SOLANO 04/29/2015 Active [facility] [place] Outpatient [id number] WILEY ENAMORADO 05/27/2015 Active [facility] Outpatient [id number] WILEY ENAMORADO 09/02/2015 Active [facility] Outpatient [id number] WILEY ENAMORADO 10/07/2015 Active [facility] Outpatient [id number] WILEY ENAMORADO 12/16/2015 Active [facility] Outpatient [id number] Wiley Enamorado 12/31/2015 01/01/2016 MH [facility] Outpatient [id number] WILEY ENAMORADO 01/13/2016 Active [facility] Outpatient [id number] WILEY ENAMORADO 04/07/2016 Active [facility] Outpatient [id number] WILEY ENAMORADO 06/20/2016 Active [facility] [place] Outpatient [id number] WILEY ENAMORADO 08/03/2016 Active [facility] Outpatient [id number] Wiley Enamorado 08/11/2016 08/12/2016 MH [facility] Outpatient [id number] WILEY ENAMORADO 08/29/2016 Active [facility] Outpatient [id number] WILEY ENAMORADO 09/28/2016 Active [facility] Outpatient [id number] WILEY ENAMORADO 02/01/2017 Active [facility] Outpatient [id number] WILEY ENAMORADO 06/04/2017 Active [facility] Ambulatory Pre-Reg [id number] Wiley Enamorado 06/04/2017 06/04/2017 [facility] Outpatient [id number] WILEY ENAMORADO 08/02/2017 Active [facility] Outpatient [id number] Wiley Enamorado 08/02/2017 08/03/2017 Medical Group [facility] Outpatient [id number] Wiley Enamorado 08/22/2017 08/23/2017 MH [facility] Outpatient [id number] WILEY ENAMORADO 08/30/2017 Active [facility] Outpatient [id number] Wiley Enamorado 08/30/2017 08/31/2017 Medical Group [facility] Emergency [id number] Jeevan Jones 10/21/2017 10/21/2017 [facility] Phone Message [id number] 10/23/2017 10/25/2017 [facility] Phone Message [id number] 11/09/2017 11/11/2017 [facility] Phone Message [id number] 11/30/2017 12/02/2017 [facility] Phone Message [id number] 12/07/2017 12/09/2017 [facility] Phone Message [id number] 12/13/2017 12/15/2017 [facility] Outpatient [id number] WILEY ENAMORADO 12/24/2017 Active [facility] Outpatient [id number] Wiley Enamorado 12/24/2017 12/25/2017 [facility] Outpatient [id number] WILEY ENAMORADO 04/02/2018 Active [facility] Outpatient [id number] WILEY ENAMORADO 05/01/2018 Active [facility] Recurring [id number] Wiley Enamorado 05/23/2018 06/22/2018 [facility] [place] [facility] [id number] Gazala Lee 07/16/2018 07/17/2018 [facility] [place] Out[facility] [id number] WILEY ENAMORADO 08/05/2018 Active [facility] Ambulatory Pre-Reg [id number] Wiley Enamorado 08/05/2018 08/05/2018 [facility] Primary Care [facility] Phone Message [id number] 08/09/2018 08/11/2018 [facility] Outpatient [id number] Wiley Enamorado 08/16/2018 Active [facility] Outpatient [id number] Wiley Enamorado 08/16/2018 08/17/2018 [facility] Outpatient [id number] Wiley Enamorado 08/28/2018 08/29/2018 [facility] Phone Message [id number] 09/03/2018 09/05/2018 Medical Group [facility] [id number] Gazala Lee 09/09/2018 09/09/2018 [facility] Observation [id number] Gazala Lee 09/09/2018 09/10/2018 [facility] Inpatient [id number] Gazala Lee 09/17/2018 09/22/2018 [facility] Outpatient [id number] Wiley Enamorado 10/18/2018 Active [facility] Procedures Procedure Code Date Perfomer Comments Source Bone density scan<sup>1, 2</sup> [id number] 08/28/2018 1. Osteopenia of the left femoral neck. 2. Normal bone mineral density of the total left hip. 3. Normal bone mineral density of the lumbar spine.Osteopenia left femoral neck [facility] Mammogram - screening<sup>3, 4</sup> 34223873 08/28/2018 There is no mammographic evidence of malignancy. A 1 year screening mammogram is recommended.(08/29/2019)There is no mammographic evidence of malignancy. A 1 year screening mammogram is recommended. [facility] Bone density scan<sup>1, 2</sup> [id number] 08/28/2018 1. Osteopenia of the left femoral neck. 2. Normal bone mineral density of the total left hip. 3. Normal bone mineral density of the lumbar spine.Osteopenia left femoral neck [facility] Mammogram - screening<sup>3, 4</sup> 44673026 08/28/2018 There is no mammographic evidence of malignancy. A 1 year screening mammogram is recommended.(08/29/2019)There is no mammographic evidence of malignancy. A 1 year screening mammogram is recommended. [facility] Bone density scan<sup>1, 2</sup> 398848742 08/28/2018 1. Osteopenia of the left femoral neck. 2. Normal bone mineral density of the total left hip. 3. Normal bone mineral density of the lumbar spine.Osteopenia left femoral neck [facility] Mammogram - screening<sup>3, 4</sup> [id number] 08/28/2018 There is no mammographic evidence of malignancy. A 1 year screening mammogram is recommended.(08/29/2019)There is no mammographic evidence of malignancy. A 1 year screening mammogram is recommended. [facility] Diabetic Retinopathy Study 7 field stereoscopic fundus photography<sup>1</sup> [id number] 12/10/[address] Ratliff [facility] Diabetic Retinopathy Study 7 field stereoscopic fundus photography<sup>1</sup> [id number] 12/10/[address] Ratliff [facility] Diabetic Retinopathy Study 7 field stereoscopic fundus photography<sup>1</sup> [id number] 12/10/[address] Ratliff [facility] Diabetic Retinopathy Study 7 field stereoscopic fundus photography<sup>5</sup> [id number] 12/10/[address] Ratliff [facility] Diabetic Retinopathy Study 7 field stereoscopic fundus photography<sup>5</sup> [id number] 12/10/[address] Ratliff [facility] Diabetic Retinopathy Study 7 field stereoscopic fundus photography<sup>5</sup> [id number] 12/10/[address] Ratliff [facility] Mammogram - screening<sup>1</sup> 01941843 08/22/2017 There is no mammographic evidence of malignancy. A 1 year screening mammogram is recommended. [facility] Mammogram - screening<sup>1</sup> 24746453 08/22/2017 There is no mammographic evidence of malignancy. A 1 year screening mammogram is recommended. [facility] Mammogram - screening<sup>2</sup> 31480647 08/22/2017 There is no mammographic evidence of malignancy. A 1 year screening mammogram is recommended. [facility] Mammogram - screening<sup>2</sup> 68455040 08/22/2017 There is no mammographic evidence of malignancy. A 1 year screening mammogram is recommended. [facility] Mammogram - screening<sup>2</sup> [id number] 08/22/2017 There is no mammographic evidence of malignancy. A 1 year screening mammogram is recommended. [facility] Bone density scan<sup>1</sup> 403711399 08/11/2016 Osteopenia left femoral neck [facility] Bone density scan<sup>1</sup> 038354273 08/11/2016 Osteopenia left femoral neck [facility] Bone density scan<sup>2</sup> 780519944 08/11/2016 Osteopenia left femoral neck [facility] Bone density scan<sup>2</sup> 860625953 08/11/2016 Osteopenia left femoral neck [facility] Bone density scan<sup>3</sup> 316126086 08/11/2016 Osteopenia left femoral neck [facility] Bone density scan<sup>3</sup> 689269067 08/11/2016 Osteopenia left femoral neck [facility] Bone density scan<sup>3</sup> 046486830 08/11/2016 Osteopenia left femoral neck [facility] Colonoscopy<sup>2</sup> 44260380 03/30/2016 s/p polyectomy Next 3 years [facility] Endoscopy<sup>3</sup> 439759398 03/30/2016 Loaiza's esophagus Next 3 years [facility] Colonoscopy<sup>2</sup> 44465543 03/30/2016 s/p polyectomy Next 3 years [facility] Endoscopy<sup>3</sup> 915376256 03/30/2016 Loaiza's esophagus Next 3 years [facility] Colonoscopy<sup>3</sup> 53634374 03/30/2016 s/p polyectomy Next 3 years [facility] Endoscopy<sup>4</sup> 930456480 03/30/2016 Loaiza's esophagus Next 3 years [facility] Colonoscopy<sup>3</sup> 39290287 03/30/2016 s/p polyectomy Next 3 years [facility] Endoscopy<sup>4</sup> 770669236 03/30/2016 Loaiza's esophagus Next 3 years [facility] Colonoscopy<sup>4</sup> 67687239 03/30/2016 s/p polyectomy Next 3 years [facility] Endoscopy<sup>5</sup> 950730604 03/30/2016 Loaiza's esophagus Next 3 years [facility] Colonoscopy<sup>4</sup> 36743950 03/30/2016 s/p polyectomy Next 3 years [facility] Endoscopy<sup>5</sup> 421093692 03/30/2016 Loaiza's esophagus Next 3 years [facility] Colonoscopy<sup>4</sup> 39608964 03/30/2016 s/p polyectomy Next 3 years [facility] Endoscopy<sup>5</sup> 269651831 03/30/2016 Loaiza's esophagus Next 3 years [facility] Colonoscopy<sup>6</sup> 99042188 03/30/2016 s/p polyectomy Next 3 years [facility] Endoscopy<sup>7</sup> 653190809 03/30/2016 Loaiza's esophagus Next 3 years [facility] Colonoscopy<sup>6</sup> 31729493 03/30/2016 s/p polyectomy Next 3 years [facility] Endoscopy<sup>7</sup> 583563505 03/30/2016 Loaiza's esophagus Next 3 years [facility] Colonoscopy<sup>6</sup> 50809076 03/30/2016 s/p polyectomy Next 3 years [facility] Endoscopy<sup>7</sup> 608464539 03/30/2016 Loaiza's esophagus Next 3 years [facility] Mammogram - screening 12020476 12/31/2015 [facility] Mammogram - screening 48301832 12/31/2015 Medical [facility] bone density 4002.65 06/11/2014 Complete std dev [facility] mammogram 30003 06/11/2014 Completed [facility] depression, criteria for diagnosis, step 1 77100 06/02/2014 N [facility] depression, criteria for diagnosis, step 2 61289 06/02/2014 [facility] diabetic foot check [id number] 06/02/2014 yes [facility] Bone density scan<sup>1</sup> 192726535 06/02/2014 osteopenia [facility] Mammogram - screening 30143449 06/02/2014 [facility] examination 84174016 11/18/2013 [facility] examination 38985316 11/18/2013 [facility] Eye examination 93329166 11/18/2013 [facility] Eye examination 24528179 11/18/2013 [facility] Hysterectomy [id number] 05/21/1996 [facility] Hysterectomy [id number] 05/21/1996 [facility] Hysterectomy [id number] 05/21/1996 [facility] Hysterectomy [id number] 05/21/1996 [facility] [facility]<sup>8</sup> [id number] 05/21/1996 vaginal [facility] Tonsillectomy [id number] [place] [facility] [id number] [facility] Tonsillectomy [id number] [facility] Tonsillectomy [id number] [facility]
--- OUTSIDE RECORDS SUMMARY | 2018-10-04 16:24 | XMS REPORT | Continuity of Care Document ---
Author Author [facility] Address Unknown Phone Unavailable Care Team Providers Care Pediatrician Name Role Phone MD Radha, Padmaja GALLARDO Unavailable Insurance Providers Payer name Policy type / Coverage type Policy ID Covered constitution party ID Policy Mendez [facility] (MEDICARE REPL Encounters Encounter Performer Location Date Lab Report Padmaja Garcia MD [facility] Dec 10, 2014 Problems [...] 2014 Active METOPROLOL SUCCINATE ER 25 MG [id number] take one tablet by mouth daily Jun [...]
--- OUTSIDE RECORDS SUMMARY | 2018-10-04 16:24 | XMS REPORT | Continuity of Care Document ---
Author Author [facility] Organization [facility] Address Unknown Phone Unavailable Care Team Providers Care Pan Shover Name Role Phone MD Radha, Padmaja GALLARDO Unavailable Insurance Providers Payer name Policy type / Coverage type Policy ID Covered green party ID Policy Mendez [facility] PLUS (MEDICARE REPL Encounters Encounter Performer Location Date Lab Report Padmaja Garcia MD [facility] Jun 03, 2014 Problems Problem Effective Dates Problem Status [...] STREPTOCOCCUS PNEUMONIAE [PNEUMOCOCCUS] Jun 02, 2014 Active Procedures Date Description Comments Jun 02, 2014 smoking status Former smoker Jun 02, 2014 depression, criteria for diagnosis, step 1 N Jun 02, 2014 depression, criteria for diagnosis, step 2 N Jun 02, 2014 diabetic foot check yes Medications Medication Instructions Start Date Status METFORMIN HCL 500 MG TABS take one tablet by mouth twice a day Jun 02, 2014 Active LOSARTAN POTASSIUM-HCTZ 100-25 MG TABS take one tablet by mouth daily Jun 02, 2014 Active METOPROLOL SUCCINATE ER 25 MG [id number] take one tablet by mouth daily Jun 02, 2014 Active Immunizations Vaccine Date Status pneumococcal [...] serum ALK PHOS 69 U/L 39-136 Jun 03, 2014 rapid plasma reagin antibody, serum RPR Non Reactive null Non Reactive
--- OUTSIDE RECORDS SUMMARY | 2018-10-04 16:25 | XMS REPORT | Continuity of Care Document ---
Author Author [facility] Organization [facility] Address Unknown Phone Unavailable Care Team Providers Care Hazardous Material Specialist Name Role Phone MD Radha, Padmaja GALLARDO Unavailable Insurance Providers Payer name Policy type / Coverage type Policy ID Covered constitution party ID Policy Mendez [facility] (MEDICARE REPL Encounters Encounter Performer Location Date Lab Report Padmaja Garcia MD [facility] Jun 03, 2014 Problems Problem [...] 2014 Active METOPROLOL SUCCINATE ER 25 MG [id number] take one tablet by mouth daily Jun [...]
--- OUTSIDE RECORDS SUMMARY | 2018-10-04 16:25 | XMS REPORT | Summary of Care ---
Author Author [facility] Organization [facility] Address Unknown Phone Unavailable Encounter [facility](MENA) [id number] Date(s): 09/09/18 - 09/10/18 [facility] [address] [employer] provided by [facility] [employer] [facility] [employer] [place] [address]- Discharge Disposition: Home or Self Care Attending Physician: Joslyn Lee MD Vital Signs 1 2 3 Most recent to oldest [Reference Range]: 152.4 cm (09/09/18 6:29 AM) Height 98.8 DegF (09/10/18 3:38 PM) 98.2 DegF (09/10/18 11:21 AM) 98.2 DegF (09/10/18 6:29 AM) Temperature Oral [96.4-99.1 DegF] 147/64 mmHg *HI* (09/10/18 3:38 PM) 134/64 mmHg (09/10/18 11:21 AM) 144/66 mmHg *HI* (09/10/18 10:32 AM) Blood Pressure [90-140/60-90 mmHg] 16 BRMIN (09/10/18 3:38 PM) 16 BRMIN (09/10/18 11:21 AM) 16 BRMIN (09/10/18 10:32 AM) Respiratory Rate [14-20 BRMIN] 80 bpm (09/10/18 3:38 PM) 73 bpm (09/10/18 11:21 AM) 72 bpm (09/10/18 8:36 AM) Peripheral Pulse Rate [60-100 bpm] 80 kg (09/09/18 6:29 AM) Weight 34.44 m2 (09/09/18 6:29 AM) Body Mass Index Problem List Condition Effective Dates Status Health Status Informant Loaiza's Active esophagus(Confirmed) Benign essential 06/02/14 Active hypertension(Confirm ed)1, 2 Body mass index 30+ 06/02/14 Active - obesity3, 4 Dementia(Confirmed)5 06/19/14 Active , 6 Depression(Confirmed Active ) Mixed Active hyperlipidemia(Confi rmed) Osteopenia(Confirmed Active ) Type 2 diabetes 06/02/14 Active mellitus(Confirmed)7 , 8 UI (urinary Active incontinence)(Confir med) 1Data migrated from [employer] on 10/20/14. 2Data migrated from [employer] on 10/20/14. 3Data migrated from [employer] on 10/20/14. 4Data migrated from [employer] on 10/20/14. 5Data migrated from [employer] on 10/20/14. 6Data migrated from [employer] on 10/20/14. 7Data migrated from [employer] on 10/20/14. 8Data migrated from [employer] on 10/20/14. Allergies, Adverse Reactions, Alerts Substance Reaction Severity Status NKDA Active Medications acetaminophen 1,000 mg, 2 tab, Route: PO, Drug form: TAB, Q6H, Start date: 09/10/18 12:00:00 C DT, Duration: 30 day, Stop date: 10/10/18 6:00:00 CDT Notes: Max acetaminophen 4000 mg/day (4 gm/day). (Same as: Tylenol Extra Streng ) Start Date: 09/10/18 Stop Date: 09/10/18 Status: Discontinued Ancef 2 gm, 20 mL, Route: IVP, Drug form: SOLN, Q8H, Dosing Weight 80, kg, Start date: 09/09/18 17:00:00 CDT, Duration: 1 day, Stop date: 09/10/18 9:00:00 CDT, ABX In dication: Surgical Prophylaxis Notes: (Same as Ancef) Start Date: 09/09/18 Stop Date: 09/10/18 Status: Completed ANES acetaminophen 1,000 mg, 2 tab, Route: PO, Drug form: TAB, ONCE, Dosing Weight 80, kg, PRN Pain Score 1-3, Start date: 09/09/18 9:07:00 CDT Notes: Max acetaminophen 4000 mg/day (4 gm/day). (Same as: Tylenol Extra Streng ) Start Date: 09/09/18 Stop Date: 09/09/18 Status: Discontinued ANES flumazenil 0.2 mg, 2 mL, Route: IVP, Drug form: INJ, PRN, Dosing Weight 80, kg, PRN Benzodi azepine Reversal, Initial dose, Start date: 09/09/18 9:07:00 CDT, Duration: 30 d ay, Stop date: 10/09/18 9:06:00 CDT Notes: (Same as: Romazicon) Start Date: 09/09/18 Stop Date: 09/09/18 Status: Discontinued ANES hydrALAZINE 10 mg, 0.5 mL, Route: IVP, Drug form: INJ, Q20Min, Dosing Weight 80, kg, PRN Sheri vated BP, Start date: 09/09/18 9:07:00 CDT, Duration: 2 doses or times, Stop sudarshan e: Limited # of times Notes: (Same as: Apresoline)Push over 5 minutes Start Date: 09/09/18 Stop Date: 09/09/18 Status: Discontinued ANES HYDROmorphone 0.5 mg, 0.5 mL, Route: IVP, Drug form: INJ, Q5Min, Dosing Weight 80, kg, PRN Toy n Score 7-10, Start date: 09/09/18 9:07:00 CDT, Duration: 4 doses or times, Stop date: Limited # of times Notes: Same as: Dilaudid Start Date: 09/09/18 Stop Date: 09/09/18 Status: Discontinued ANES naloxone 0.4 mg, 1 mL, Route: IVP, Drug form: INJ, Q2MIN, Dosing Weight 80, kg, PRN Narco tic Reversal, Start date: 09/09/18 9:07:00 CDT, Duration: 8 doses or times, Stop date: Limited # of times Notes: Same as Narcan Start Date: 09/09/18 Stop Date: 09/09/18 Status: Discontinued ANES ondansetron 4 mg, 2 mL, Route: IVP, Drug form: INJ, ONCE, Dosing Weight 80, kg, PRN Nausea & Vomiting, Start date: 09/09/18 9:07:00 CDT Notes: (Same as: Dimitris) MEDICATION WASTE Product Size: 4 mgProduct Was billie: ___ mg Start Date: 09/09/18 Stop Date: 09/09/18 Status: Discontinued ANES oxyCODONE 5 mg, 1 tab, Route: PO, Drug form: TAB, Q4H, Dosing Weight 80, kg, PRN Pain Scor e 4-6, Start date: 09/09/18 9:07:00 CDT, Duration: 30 day, Stop date: 10/09/18 9 :06:00 CDT Notes: (Same as: Roxicodone) Start Date: 09/09/18 Stop Date: 09/09/18 Status: Discontinued ceFAZolin (ANES) Route: IV, Drug form: INJ, ONCE, Stop date: 09/09/18 8:28:00 CDT Start Date: 09/09/18 Stop Date: 09/09/18 Status: Completed ceFAZolin + sterile water 20 mL 2 gm, Route: IV, PRE OP, Start date: 09/09/18 7:00:00 CDT, Duration: 1 day, Stop date: 09/10/18 6:59:00 CDT, ABX Indication: Surgical Prophylaxis Notes: (Same As: Ancef, Kefzol) MEDICATION WASTE Product Size: 1000 mgP roduct Wasted: ___ mg Start Date: 09/09/18 Stop Date: 09/10/18 Status: Discontinued Colace 100 mg oral capsule 100 mg, 1 cap, Route: PO, Drug form: CAP, BID, Dosing Weight 80, kg, Start date: 09/09/18 17:00:00 CDT, Duration: 30 day, Stop date: 10/09/18 9:00:00 CDT Notes: (Same as: Colace) (Do Not Crush) Start Date: 09/09/18 Stop Date: 09/10/18 Status: Discontinued dexamethasone (ANES) Route: IV, Drug form: INJ, ONCE, Stop date: 09/09/18 9:08:00 CDT Start Date: 09/09/18 Stop Date: 09/09/18 Status: Completed docusate 200 mg, 2 cap, Route: PO, Drug form: CAP, ONCE, Dosing Weight 80, kg, Start date : 09/10/18 13:36:00 CDT, Stop date: 09/10/18 13:36:00 CDT Notes: (Same as: Colace) (Do Not Crush) Start Date: 09/10/18 Stop Date: 09/10/18 Status: Completed docusate sodium 100 mg oral capsule 100 mg=1 cap, PO, BID, PRN Constipation, # 28 cap, 1 Refill(s) Start Date: 09/10/18 Stop Date: 10/08/18 Status: Ordered ePHEDrine (ANES) Route: IV, Drug form: INJ, ONCE, Stop date: 09/09/18 8:28:00 CDT Start Date: 09/09/18 Stop Date: 09/09/18 Status: Completed famotidine (ANES) Route: IV, Drug form: INJ, ONCE, Stop date: 09/09/18 8:28:00 CDT Start Date: 09/09/18 Stop Date: 09/09/18 Status: Completed fentaNYL (ANES) Route: IV, Drug form: INJ, ONCE, Stop date: 09/09/18 8:48:00 CDT Start Date: 09/09/18 Stop Date: 09/09/18 Status: Completed ferrous sulfate 325 mg oral enteric coated tablet 325 mg=1 tab, PO, BID, give with orange juice, # 60 tab, 3 Refill(s) Start Date: 09/10/18 Status: Ordered Flagyl 500 mg, 100 mL, Route: IVPB, Drug form: INJ, PRE OP, Start date: 09/09/18 7:00:0 0 CDT, Duration: 1 day, Stop date: 09/10/18 6:59:00 CDT, ABX Indication: Surgica l Prophylaxis Notes: (Same as: Flagyl) Avoid alcohol. Start Date: 09/09/18 Stop Date: 09/10/18 Status: Discontinued furosemide (ANES) Route: IV, Drug form: INJ, ONCE, Stop date: 09/09/18 11:18:00 CDT Start Date: 09/09/18 Stop Date: 09/09/18 Status: Completed glycopyrrolate (ANES) Route: IV, Drug form: INJ, ONCE, Stop date: 09/09/18 8:53:00 CDT Start Date: 09/09/18 Stop Date: 09/09/18 Status: Completed hydrALAZINE 50 mg oral tablet 50 mg, 1 tab, Route: PO, Drug form: TAB, BID, Dosing Weight 80, kg, Start date: 09/10/18 9:00:00 CDT, Duration: 30 day, Stop date: 10/09/18 17:00:00 CDT Start Date: 09/10/18 Stop Date: 09/10/18 Status: Discontinued hydromorphone (ANES) Route: IV, Drug form: INJ, ONCE, Stop date: 09/09/18 9:18:00 CDT Start Date: 09/09/18 Stop Date: 09/09/18 Status: Completed ibuprofen 600 mg, 1 tab, Route: PO, Drug form: TAB, Q6H, Dosing Weight 80, kg, PRN Pain Sc ore 1-5, Start date: 09/09/18 11:37:00 CDT, Duration: 30 day, Stop date: 9 11:36:00 CDT, > 60 kg; Pediatric Dosing Notes: (Same as: Althea)"Do Not Crush" Take with food. Start Date: 09/09/18 Stop Date: 09/10/18 Status: Discontinued ibuprofen 800 mg oral tablet 800 mg=1 tab, PO, Q8H, PRN Pain, Take with food, X 10 day, # 40 tab, 0 Refill(s) Start Date: 09/10/18 Stop Date: 09/20/18 Status: Ordered indigo carmine (ANES) Route: IV, Drug form: INJ, ONCE, Stop date: 09/09/18 10:53:00 CDT Start Date: 09/09/18 Stop Date: 09/09/18 Status: Completed ketOROLAC (ANES) IV, ONCE Start Date: 09/09/18 Stop Date: 09/09/18 Status: Completed labetalol 200 mg, 1 tab, Route: PO, Drug form: TAB, Q12H, Dosing Weight 80, kg, Start date : 09/09/18 21:00:00 CDT, Duration: 30 day, Stop date: 10/09/18 9:00:00 CDT Notes: With food. (Same as:Trandate, Normodyne) Start Date: 09/09/18 Stop Date: 09/10/18 Status: Discontinued Lactated Ringers (Bolus) IV 1,000 mL, 1,000 ml/hr, Infuse Over: 1 hr, Route: IV, 1,000, Drug form: INJ, ONCE , Priority: STAT, Dosing Weight 80 kg, Start date: 09/09/18 16:32:00 CDT, Stop d ate: 09/09/18 16:32:00 CDT Start Date: 09/09/18 Stop Date: 09/09/18 Status: Completed Lactated Ringers Injection IV (ANES) 1000 mL Route: IV, Total Volume: 1,000, Start date: 09/09/18 7:30:00 CDT, Stop date: 8:30:00 CDT Start Date: 09/09/18 Stop Date: 09/09/18 Status: Completed Lactated Ringers Injection IV 1,000 mL 1,000 mL, Rate: 125 ml/hr, Infuse over: 8 hr, Route: IV, Dosing Weight 80 kg, To klaudia Volume: 1,000, Start date: 09/09/18 11:41:00 CDT, Duration: 30 day, Stop sudarshan e: 10/09/18 11:40:00 CDT, 1.87, m2 Start Date: 09/09/18 Stop Date: 09/10/18 Status: Discontinued lidocaine (ANES) Route: IV, Drug form: INJ, ONCE, Stop date: 09/09/18 8:28:00 CDT Start Date: 09/09/18 Stop Date: 09/09/18 Status: Completed Lovenox 40 mg, 0.4 mL, Route: SUB-Q, Drug form: INJ, [id number], Dosing Weight 80, kg, Sta rt date: 09/10/18 9:00:00 CDT, Duration: 30 day, Stop date: 10/09/18 9:00:00 CDT Notes: (Same as: Lovenox) Start Date: 09/10/18 Stop Date: 09/10/18 Status: Discontinued metFORMIN 500 mg oral tablet 500 mg, 1 tab, Route: PO, Drug form: TAB, BID-Meals, Dosing Weight 80, kg, Start date: 09/10/18 8:00:00 CDT, Duration: 30 day, Stop date: 10/09/18 17:00:00 CDT Start Date: 09/10/18 Stop Date: 09/10/18 Status: Discontinued metroNIDAZOLE (ANES) 5 mg Route: IV, Drug form: INJ, Start date: 09/09/18 7:53:00 CDT, Stop date: 09/09/18 8:53:00 CDT Start Date: 09/09/18 Stop Date: 09/09/18 Status: Completed neostigmine (ANES) Route: IV, Drug form: INJ, ONCE, Stop date: 09/09/18 12:09:00 CDT Start Date: 09/09/18 Stop Date: 09/09/18 Status: Completed nitrofurantoin macrocrystals 100 mg oral capsule (Macrodantin) 100 mg=1 cap, PO, QID, X 10 day, # 40 cap, 0 Refill(s) Start Date: 09/10/18 Stop Date: 09/20/18 Status: Ordered norepinephrine (ANES) Route: IV, Drug form: INJ, ONCE, Stop date: 09/09/18 11:18:00 CDT Start Date: 09/09/18 Stop Date: 09/09/18 Status: Completed Ofirmev 1,000 mg, 100 mL, Route: IV, Drug form: INJ, Q6H, Dosing Weight 80, kg, for > or=50 kg, Start date: 09/09/18 18:00:00 CDT, Duration: 30 day, Stop date: 10/09 12:00:00 CDT Notes: Infuse over 15 minutesDo not exceed 4gm/day of acetaminophen MEDICAT ION WASTE Product Size: 1000 mgProduct Wasted: ___ mg Start Date: 09/09/18 Stop Date: 09/10/18 Status: Discontinued ondansetron (ANES) Route: IV, Drug form: INJ, ONCE, Stop date: 09/09/18 11:13:00 CDT Start Date: 09/09/18 Stop Date: 09/09/18 Status: Completed propofol (ANES) Route: IV, Drug form: INJ, ONCE, Stop date: 09/09/18 8:48:00 CDT Start Date: 09/09/18 Stop Date: 09/09/18 Status: Completed Pyridium 100 mg oral tablet 100 mg=1 tab, PO, PRN, PRN Dysuria, # 30 tab, 0 Refill(s) Start Date: 09/10/18 Stop Date: 10/10/18 Status: Ordered rocuronium (ANES) Route: IV, Drug form: INJ, ONCE, Stop date: 09/09/18 8:28:00 CDT Start Date: 09/09/18 Stop Date: 09/09/18 Status: Completed simethicone 80 mg, 1 tab, Route: CHEW, Drug form: CHEWTAB, ONCE, Dosing Weight 80, kg, PRN G as, Start date: 09/10/18 9:50:00 CDT Notes: (Same as: Mylicon) Start Date: 09/10/18 Stop Date: 09/10/18 Status: Completed simethicone 80 mg oral tablet 80 mg=1 tab, PO, TID-After Meals, # 30 tab, 0 Refill(s) Start Date: 09/10/18 Stop Date: 10/12/18 Status: Ordered Tessalon Perles 100 mg, 1 cap, Route: PO, Drug form: CAP, TID, Dosing Weight 80, kg, PRN Cough, Start date: 09/10/18 7:23:00 CDT, Duration: 30 day, Stop date: 10/10/18 7:22:00 CDT Notes: (Same As: Tessalon Perles)"Do Not Crush" Start Date: 09/10/18 Stop Date: 09/10/18 Status: Discontinued tramadol 50 mg, 1 tab, Route: PO, Drug form: TAB, Q6H, Dosing Weight 80, kg, PRN Pain Sco re 6-10, Start date: 09/09/18 11:37:00 CDT, Duration: 1 day, Stop date: 09/10/18 11:36:00 CDT Notes: Not to exceed 400mg/day. (Same As: Ultram) Start Date: 09/09/18 Stop Date: 09/10/18 Status: Completed tramadol 50 mg oral tablet 50 mg=1 tab, PO, Q6H, PRN Pain, X 10 day, # 20 tab, 0 Refill(s) Start Date: 09/10/18 Stop Date: 09/20/18 Status: Ordered Tylenol with Codeine #3 oral tablet 1 tab, PO, Q6H, PRN Pain, X 7 day, # 20 tab, 0 Refill(s) Start Date: 09/10/18 Stop Date: 09/17/18 Status: Ordered Results BLOOD BANK RESULTS 1 2 3 Most recent to oldest [Reference Range]: O POS *Unknown* (09/09/18 6:32 AM) ABO/Rh Negative (09/09/18 6:32 AM) Antibody Scrn ELECTROLYTES 1 2 3 Most recent to oldest [Reference Range]: 141 mEq/L (09/10/18 8:49 AM) 140 mEq/L (09/10/18 2:29 AM) 139 mEq/L (09/09/18 7:13 PM) Sodium Lvl [135-145 mEq/L] 3.7 mEq/L (09/10/18 8:49 AM) 3.6 mEq/L (09/10/18 2:29 AM) 3.7 mEq/L (09/09/18 7:13 PM) Potassium Lvl [3.5-5.1 mEq/L] 106 mEq/L (09/10/18 8:49 AM) 107 mEq/L (09/10/18 2:29 AM) 106 mEq/L (09/09/18 7:13 PM) Chloride Lvl [95-109 mEq/L] 30 mEq/L (09/10/18 8:49 AM) 28 mEq/L (09/10/18 2:29 AM) 22 mEq/L *LOW* (09/09/18 7:13 PM) CO2 [24-32 mEq/L] 8.7 mEq/L *LOW* (09/10/18 8:49 AM) 8.6 mEq/L *LOW* (09/10/18 2:29 AM) 14.7 mEq/L (09/09/18 7:13 PM) AGAP [10.0-20.0 mEq/L] CHEM PANEL 1 2 3 Most recent to oldest [Reference Range]: 0.89 mg/dL (09/10/18 8:49 AM) 0.79 mg/dL (09/10/18 2:29 AM) 1.21 mg/dL (09/09/18 7:13 PM) Creatinine Lvl [0.50-1.40 mg/dL] 63 mL/min/1.73m2 1 *NA* (09/10/18 8:49 AM) 73 mL/min/1.73m2 2 *NA* (09/10/18 2:29 AM) 44 mL/min/1.73m2 3 *NA* (09/09/18 7:13 PM) eGFR 8 mg/dL (09/10/18 8:49 AM) 9 mg/dL (09/10/18 2:29 AM) 10 mg/dL (09/09/18 7:13 PM) BUN [7-22 mg/dL] 8 (09/09/18 7:13 PM) B/C Ratio [6-25] 109 mg/dL *HI* (09/10/18 8:49 AM) 106 mg/dL *HI* (09/10/18 2:29 AM) 260 mg/dL *HI* (09/09/18 7:13 PM) Glucose Lvl [70-99 mg/dL] 6.1 g/dL *LOW* (09/09/18 7:13 PM) Total Protein [6.4-8.4 g/dL] 3.2 g/dL *LOW* (09/09/18 7:13 PM) Albumin Lvl [3.5-5.0 g/dL] 2.9 g/dL (09/09/18 7:13 PM) Globulin [2.7-4.2 g/dL] 1.1 (09/09/18 7:13 PM) A/G Ratio [0.7-1.6] 8.2 mg/dL *LOW* (09/10/18 8:49 AM) 8.1 mg/dL *LOW* (09/10/18 2:29 AM) 8.1 mg/dL *LOW* (09/09/18 7:13 PM) Calcium Lvl [8.5-10.5 mg/dL] 22 unit/L (09/09/18 7:13 PM) ALT [0-65 unit/L] 32 unit/L (09/09/18 7:13 PM) AST [0-37 unit/L] 47 unit/L (09/09/18 7:13 PM) Alk Phos [39-136 unit/L] 0.9 mg/dL (09/09/18 7:13 PM) Bili Total [0.2-1.3 mg/dL] 1Result Comment: The eGFR is calculated using the [...] from the National Kidney Disease Education Program ( NKDEP) which additionally recommends that when the eGFR is used in patients with extremes of body mass index for purposes of drug dosing, the eGFR should be mul tiplied by the estimated BMI. 2Result Comment: The eGFR is calculated using the [...] from the National Kidney Disease Education Program ( NKDEP) which additionally recommends that when the eGFR is used in patients with extremes of body mass index for purposes of drug dosing, the eGFR should be mul tiplied by the estimated BMI. 3Result Comment: The eGFR is calculated using the [...] from the National Kidney Disease Education Program ( NKDEP) which additionally recommends that when the eGFR is used in patients with extremes of body mass index for purposes of drug dosing, the eGFR should be mul tiplied by the estimated BMI. URINE CHEM 1 2 3 Most recent to oldest [Reference Range]: 172.00 mg/dL *NA* (09/10/18 2:29 AM) U Creatinine 45 mEq/L *NA* (09/10/18 2:29 AM) U Sodium HEMATOLOGY 1 2 3 Most recent to oldest [Reference Range]: 9.9 K/CMM (09/10/18 8:49 AM) 12.3 K/CMM *HI* (09/10/18 2:29 AM) 11.9 K/CMM *HI* (09/09/18 7:13 PM) WBC [3.7-10.4 K/CMM] 3.44 M/CMM *LOW* (09/10/18 8:49 AM) 3.46 M/CMM *LOW* (09/10/18 2:29 AM) 3.85 M/CMM *LOW* (09/09/18 7:13 PM) RBC [4.20-5.40 M/CMM] 10.6 g/dL *LOW* (09/10/18 8:49 AM) 10.5 g/dL *LOW* (09/10/18 2:29 AM) 11.6 g/dL *LOW* (09/09/18 7:13 PM) Hgb [12.0-16.0 g/dL] 31.3 % *LOW* (09/10/18 8:49 AM) 31.7 % *LOW* (09/10/18 2:29 AM) 35.3 % *LOW* (09/09/18 7:13 PM) Hct [36.0-48.0 %] 91.0 fL (09/10/18 8:49 AM) 91.6 fL (09/10/18 2:29 AM) 91.8 fL (09/09/18 7:13 PM) MCV [80.0-98.0 fL] 30.9 pg (09/10/18 8:49 AM) 30.2 pg (09/10/18 2:29 AM) 30.3 pg (09/09/18 7:13 PM) MCH [27.0-31.0 pg] 33.9 g/dL (09/10/18 8:49 AM) 33.0 g/dL (09/10/18 2:29 AM) 33.0 g/dL (09/09/18 7:13 PM) MCHC [32.0-36.0 g/dL] 13.5 % (09/10/18 8:49 AM) 13.3 % (09/10/18 2:29 AM) 13.3 % (09/09/18 7:13 PM) RDW [11.5-14.5 %] 9.2 fL (09/10/18 8:49 AM) 10.2 fL (09/10/18 2:29 AM) 9.9 fL (09/09/18 7:13 PM) MPV [7.4-10.4 fL] 132 K/CMM *LOW* (09/10/18 8:49 AM) 151 K/CMM (09/10/18 2:29 AM) 162 K/CMM (09/09/18 7:13 PM) Platelet [133-450 K/CMM] 83.8 % *HI* (09/10/18 8:49 AM) 85.6 % *HI* (09/10/18 2:29 AM) 90.4 % *HI* (09/09/18 7:13 PM) Segs [45.0-75.0 %] 10.3 % *LOW* (09/10/18 8:49 AM) 7.6 % *LOW* (09/10/18 2:29 AM) 3.9 % *LOW* (09/09/18 7:13 PM) Lymphocytes [20.0-40.0 %] 5.3 % (09/10/18 8:49 AM) 6.7 % (09/10/18 2:29 AM) 5.7 % (09/09/18 7:13 PM) Monocytes [2.0-12.0 %] 0.1 % (09/10/18 8:49 AM) 2.8 % (09/09/18 6:32 AM) Eosinophils [0.0-4.0 %] 0.5 % (09/10/18 8:49 AM) 0.1 % (09/10/18 2:29 AM) 0.7 % (09/09/18 6:32 AM) Basophils [0.0-1.0 %] 8.3 K/CMM *HI* (09/10/18 8:49 AM) 10.5 K/CMM *HI* (09/10/18 2:29 AM) 10.8 K/CMM *HI* (09/09/18 7:13 PM) Neutrophils # [1.5-8.1 K/CMM] 1.0 K/CMM (09/10/18 8:49 AM) 0.9 K/CMM *LOW* (09/10/18 2:29 AM) 0.5 K/CMM *LOW* (09/09/18 7:13 PM) Lymphocytes # [1.0-5.5 K/CMM] 0.5 K/CMM (09/10/18 8:49 AM) 0.8 K/CMM (09/10/18 2:29 AM) 0.7 K/CMM (09/09/18 7:13 PM) Monocytes # [0.0-0.8 K/CMM] 0.2 K/CMM (09/09/18 6:32 AM) Eosinophils # [0.0-0.5 K/CMM] Normal (09/09/18 7:13 PM) RBC Morph [Normal] Normal (09/09/18 7:13 PM) Plt Morph [Normal] Immunizations Given and Recorded Vaccine Date Status Refusal Reason influenza virus vaccine, inactivated1 04/02/18 Given influenza virus vaccine, inactivated2 02/01/17 Given influenza virus vaccine, inactivated 04/29/15 Given diphtheria/pertussis, acel/tetanus adult 12/16/15 Given pneumococcal 23-valent vaccine3 06/02/14 Given 1Result Comment: Patient waited in room ten mins no allergic reaction. 2Result Comment: Patient waited in room 10 mins, no allergic reaction. 3Result Comment: pneumovax 23 [[id number]]. Migrated from OBS VIS: Pneumovax 23: 02-23-09 ; Data migrated from OTOY on 12/25/2014. Procedures Procedure Date Related Diagnosis Body Site Status Bone density scan1, 2 08/28/18 Completed Mammogram - screening3, 4 08/28/18 Completed Diabetic Retinopathy Study 7 field 12/10/17 Completed stereoscopic fundus photography5 Colonoscopy6 03/30/16 Completed Endoscopy7 03/30/16 Completed Eye examination 11/18/13 Completed Hysterectomy 1996 Completed Tonsillectomy Completed 11. Osteopenia of the left femoral neck. 2. Normal bone mineral density of the total left hip. 3. Normal bone mineral density of the lumbar spine. 2Osteopenia left femoral neck 3There is no mammographic evidence of malignancy. A 1 year screening mammogram is recommended.(08/29/2019) 4There is no mammographic evidence of malignancy. A 1 year screening mammogram is recommended. 5No DR. Dr Ratliff 6s/p polyectomy Next 3 years 7Barrett's esophagus Next 3 years Social History Social History Type Response Alcohol Current, Type Beer. Frequency: 1-2 times per year. Smoking Status Former smoker; Exposure to Tobacco Smoke None; Cigarette Smoking Last 365 Days No; Reg Smoking Cessation Counseling No; Stopped at age: 62; 1 entered on: 09/09/18 1QUIT 5 YEARS AGO Assessment and Plan Extracted from: Title: Clinical Document Author: Joslyn Lee MD Date: 09/10/18 Admit date: 09/09/2018 Discharge date: 09/10/2018 Admit diagnosis: Cystocele, grade III, wall prolapse, grade II; rectocele grade I. Discharge diagnosis: Same as above H&P: Please see H&P by Dr. Lee on 09/09/2018. Procedures: cystocele repair, extraperitoneal uterosacral cuff suspension, rectocele repair and cystoscopy with brisk efflux. Hospital course: Patient was admitted for scheduled surgery and underwent an uncomplicated cystocele repair, extraperitoneal uterosacral cuff suspension, rectocele repair and cystoscopy with brisk efflux. Patient On POD#1, patient ambulating without difficulty, voiding adequately with munoz catheter, tolerating regular diet, and pain well controlled on oral pain medications. Eligible for home discharge. She is discharged home with munoz catheter and recieved leg bad teaching in the hospital. Medications: as per home medication reconciliation form. Dispo: Pt is for discharge home today with routine pain medications. Return precautions given. Patient is to follow up in [address] Lee. Danika Saldaña MD PGY-4 Extracted from: Title: Clinical Document Author: Joslyn Lee MD Date: 09/10/18 Progress Note - Daily [facility] Completed: Aug, 07:10 by Reza Pacheco DO RM: [id number] [birth year], [id number] (: 1940) F Attending: Joslyn Lee MDPhone: Service: [employer] Service Reason for Admission: URETRAL VAGINAL PROLAPSED Working DRG: Code status: Full CodeCurrent diet: Isolation: No Isolation/Standard Precautions Allergies: NKDA SUBJECTIVE Patient explains that she is doing fine. Denies any pain. She is tolerating clears without N/V, she has passed flatus. Explains she has some congestion that has been there prior to surgery. OBJECTIVE VitalsTmp(F)ZyzjdMSEOEzE8AZG4 09/10 06:2998.225833/632329--- 09/10 03:3098.152688/695364--- 09/10 00:0198.354749/814024 2.0L/m 09/09 19:1598.327769/658151 2.0L/m 09/09 15:05----82-----9------ 24 Hr Tmax: 98.2F (36.78c) at 09/10 06:29Vital Signs are the last 5 in the past 48 hours. GEN: NAD Cardiac: RRR Lungs: CTAB Abd: soft non tender Pelvic: vag pack removed, no significant bleeding sutures were palpated Ext: no calf tenderness, no edema 24hr Labs 09/10 0229 U Uqnqyazqbk112.00 U Nwlhmg32 Glucose Keo899 H BUN9 Creatinine Lvl0.79 Sodium Ter144 Potassium Lvl3.6 Chloride Upj355 CO228 AGAP8.6 L Calcium Lvl8.1 L eGFR73 WBC12.3 H RBC3.46 L Hgb10.5 L Hct31.7 L MCV91.6 MCH30.2 MCHC33.0 RDW13.3 Mcmcpeng636 MPV10.2 Segs85.6 H Monocytes6.7 Lymphocytes7.6 L Basophils0.1 Neutrophils #10.5 H Lymphocytes #0.9 L Monocytes #0.8 09/09 2049 POC Performing LocatioSee Note Glucose HHS970 H 09/09 1913 Sodium Isg305 Potassium Lvl3.7 Chloride Wkf568 CO222 L AGAP14.7 Glucose Ncl689 H Creatinine Lvl1.21 BUN10 B/C Ratio8 Total Protein6.1 L Albumin Lvl3.2 L Globulin2.9 A/G Ratio1.1 Calcium Lvl8.1 L ALT22 AST32 Alk Phos47 Bili Total0.9 eGFR44 WBC11.9 H RBC3.85 L Hgb11.6 L Hct35.3 L MCV91.8 MCH30.3 MCHC33.0 RDW13.3 Isksmyjl163 MPV9.9 Segs90.4 H Monocytes5.7 Lymphocytes3.9 L Neutrophils #10.8 H Lymphocytes #0.5 L Monocytes #0.7 RBC MorphNormal Plt MorphNormal 09/09 1632 POC Performing LocatioSee Note Glucose BAD391 H 09/09 1202 POC Performing LocatioSee Note Glucose UMI411 H 09/09 0727 Glucose Kpp935 H BUN9 Creatinine Lvl0.84 Sodium Kht668 Potassium Lvl3.3 L Chloride Hjm129 CO226 AGAP12.3 Calcium Lvl9.0 eGFR68 09/09 0632 ABO/RhO POS Antibody ScrnNegative Munoz still necessary (Yes/No): Line still necessary (Yes/No): VitalsTmp(F)MadagQUYMVbE5FPF5 09/10 06:2998.789168/745166--- 09/10 03:3098.093404/648175--- 09/10 00:0198.623650/324981 2.0L/m 09/09 19:1598.697927/501265 2.0L/m 09/09 15:05----82-----9------ 24 Hr Tmax: 98.2F (36.78c) at 09/10 06:29Vital Signs are the last 5 in the past 48 hours. DateWt(kg)Wt(lb)Ht(cm)Ht(in)Method 09/09 (initial) 80.00 176.00Measured .40 60.00Stated I&ORecordInOutBal 08/2223hr Tot 5638 1270 4368 08/2123hr Tot 0 0 0 Medications (28) Active Scheduled Meds (6): 09/09/18 acetaminophen (Ofirmev) 1,000 mg IV Q6H 400 ml/hr 09/09/18 ceFAZolin (Ancef) 2 gm IVP Q8H 200 ml/hr 09/09/18 docusate (Colace 100 mg oral capsule) 100 mg PO BID 09/10/18 hydrALAZINE (hydrALAZINE 50 mg oral tablet) 50 mg PO BID 09/09/18 labetalol 200 mg PO Q12H 09/10/18 metFORMIN (metFORMIN 500 mg oral tablet) 500 mg PO BID-Meals Unscheduled Meds (2): 09/09/18 ceFAZolin + sterile water 20 mL 2 gm IV PRE OP 200 ml/hr 09/09/18 metroNIDAZOLE (Flagyl) 500 mg IVPB PRE OP 200 ml/hr PRN Meds (2): 09/09/18 ibuprofen 600 mg PO Q6H 09/09/18 tramadol 50 mg PO Q6H One Time Meds (17): 09/09/18 (Completed) Lactated Ringers Injection IV (Lactated Ringers (Bolus) IV) 1,000 mL IV ONCE 1,000 ml/hr (Completed) ceFAZolin (ceFAZolin (ANES)) IV ONCE (Completed) dexamethasone (dexamethasone (ANES)) IV ONCE (Completed) ePHEDrine (ePHEDrine (ANES)) IV ONCE (Completed) famotidine (famotidine (ANES)) IV ONCE (Completed) fentaNYL (fentaNYL (ANES)) IV ONCE (Completed) furosemide (furosemide (ANES)) IV ONCE (Completed) glycopyrrolate (glycopyrrolate (ANES)) IV ONCE (Completed) hydromorphone (hydromorphone (ANES)) IV ONCE (Completed) indigo carmine (indigo carmine (ANES)) IV ONCE (Completed) ketOROLAC (ketOROLAC (ANES)) IV ONCE (Completed) lidocaine (lidocaine (ANES)) IV ONCE (Completed) neostigmine (neostigmine (ANES)) IV ONCE (Completed) norepinephrine (norepinephrine (ANES)) IV ONCE (Completed) ondansetron (ondansetron (ANES)) IV ONCE (Completed) propofol (propofol (ANES)) IV ONCE (Completed) rocuronium (rocuronium (ANES)) IV ONCE Continuous Infusions (1): 09/09/18 Lactated Ringers Injection IV 1,000 mL 1,000 mL 125 ml/hr A/P: A 78 yo with PMH Alzheimer's, cHTN, T2DM s/p USLS, A/P repair and cystoscopy 2/2 to pelvic organ prolapse POD0 1. POD0, USLS, AP repair and cysto 2/2 pelvic organ prolapse Heme: 14.3> 150>11.6>10.5, will start lovenox this AM Pain: well controlled, on ofirmec, tramadol and ibuprofen GI: tolerating CLD will advance this AM denies N/V : muonz in place, patient will go home with it per Dr. Lee Vaginal removed this AM 2. T2DM on metformin 500 mg BID, ordered in house, written for diabetic diet -q4 accucheck, all <200 3. cHTN - on hydralazine 50 mg BID, labetalol 200 mg daily, ordered in house Dispo: Continue routine postop care, Labs pending for AM, possible DC in the PM [facility] w/ Dr. Jesus Pacheco, DO OBGYN PGy-1 Addendum pt doing well, eating and ambulating well, no acute issues , no CP, no SOB by O/E : afebrile , vitals stable LUIS MANUEL Lee: Soft, good BS, NT,ND , no CVA tenderness Joslyn DHALIWAL Post op care discussed in details on ER precautions given 09/10/2018 Follow up in 1 week 13:29 All questions answered
--- OUTSIDE RECORDS SUMMARY | 2018-10-04 16:25 | XMS REPORT | Summary of Care ---
Author Author [facility] Organization [facility] Address Unknown Phone Unavailable Encounter HQ Miguel_xochitl(FIN) [id number] Date(s): 06/04/17 - 06/04/17 [facility] [address], [address] [place] [address]- [phone] Attending Physician: Padmaja Garcia MD Vital Signs No data available for this section Problem List Condition Effective Dates Status Health Status Informant Alzheimer's Active disease(Confirmed) Loaiza's Active esophagus(Confirmed) Benign essential 06/02/14 Active hypertension(Confirm ed)1, 2 Body mass index 30+ 06/02/14 Active - obesity3, 4 Dementia5, 6 06/19/14 Active Hyperlipidemia(Confi 06/02/14 Active rmed)7, 8 Osteopenia(Confirmed Active ) Type 2 diabetes 06/02/14 Active mellitus(Confirmed)9 , 10 UI (urinary Active incontinence)(Confir med) White coat Active hypertension(Confirm ed) 1Data migrated from [employer] on 10/20/14. 2Data migrated from [employer] on 10/20/14. 3Data migrated from [employer] on 10/20/14. 4Data migrated from [employer] on 10/20/14. 5Data migrated from [employer] on 10/20/14. 6Data migrated from [employer] on 10/20/14. 7Data migrated from [employer] on 10/20/14. 8Data migrated from [employer] on 10/20/14. 9Data migrated from [employer] on 10/20/14. 10Data migrated from [employer] on 10/20/14. Allergies, Adverse Reactions, Alerts Substance Reaction Severity Status NKDA Active Medications No data available for this section Results No data available for this section Immunizations Given and Recorded Vaccine Date Status Refusal Reason influenza virus vaccine, inactivated1 02/01/17 Given influenza virus vaccine, inactivated 04/29/15 Given diphtheria/pertussis, acel/tetanus adult 12/16/15 Given pneumococcal 23-valent vaccine2 06/02/14 Given 1Result Comment: Patient waited in room 10 mins, no allergic reaction. 2Result Comment: pneumovax 23 [[id number]]. Migrated from OBS VIS: Pneumovax 23: 02-23-09 ; Data migrated from [employer] on 12/25/2014. Procedures Procedure Date Related Diagnosis Body Site Status Mammogram - screening1 08/22/17 Completed Bone density scan2 08/11/16 Completed Colonoscopy3 03/30/16 Completed Endoscopy4 03/30/16 Completed Eye examination 11/18/13 Completed Hysterectomy 1996 Completed Tonsillectomy Completed 1There is no mammographic evidence of malignancy. A 1 year screening mammogram is recommended. 2Osteopenia left femoral neck 3s/p polyectomy Next 3 years 4Barrett's esophagus Next 3 years Social History Social History Type Response Alcohol Current, Type Beer. Frequency: 1-2 times per year. Smoking Status Former smoker; Exposure to Tobacco Smoke None; Cigarette Smoking Last 365 Days No; Reg Smoking Cessation Counseling No; Stopped at age: 62; entered on: 08/30/17 Assessment and Plan No data available for this section
--- OUTSIDE RECORDS SUMMARY | 2018-10-04 16:25 | XMS REPORT | Summary of Care ---
Author Author [facility] Organization [facility] Address Unknown Phone Unavailable Encounter HQ Cassier_xochitl(FIN) [id number] Date(s): 06/04/17 - 06/04/17 [facility] [address] [place] [address], [address] [place], [place] [address]- [phone] Attending Physician: Padmaja Garcia MD Vital Signs [...] Pneumovax 23: 02-23-09 ; Data migrated from [employer] on 12/25/2014. Procedures Procedure Date Related Diagnosis Body Site Status Bone density scan1 08/11/16 Completed Colonoscopy2 03/30/16 Completed Endoscopy3 03/30/16 Completed Mammogram - screening 12/31/15 Completed Eye examination 11/18/13 Completed Hysterectomy 1996 Completed Tonsillectomy Completed 1Osteopenia left femoral neck 2s/p polyectomy Next 3 years 3Barrett's esophagus Next 3 years Social History Social History Type Response Alcohol Current, Type Beer. Frequency: 1-2 times per year. Smoking Status Former smoker; Exposure to Tobacco Smoke None; Cigarette Smoking Last 365 Days No; Reg Smoking Cessation Counseling No; Stopped at age: 62; entered on: 02/01/17 Assessment and Plan No data available for this section
--- OUTSIDE RECORDS SUMMARY | 2018-10-04 16:25 | XMS REPORT | Continuity of Care Document ---
Author Author [facility] Organization [facility] Address Unknown Phone Unavailable Care Team Providers Care Solar Technician Name Role Phone MD Radha, Padmaja GALLARDO Unavailable Insurance Providers Payer name Policy type / Coverage type Policy ID Covered democrat ID Policy Mendez [facility] REPL Encounters Encounter Performer Location Date Office Visit Padmaja Garcia MD [facility] Jun 19, 2014 Problems Problem Effective Dates Problem Status [...] 2014 Active DEMENTIA Jun 19, 2014 Active Procedures Date Description Comments Jun 02, 2014 smoking status Former smoker Jun 02, 2014 depression, criteria for diagnosis, step 1 N Jun 02, 2014 depression, criteria for diagnosis, step 2 N Jun 02, 2014 diabetic foot check yes Jun 19, 2014 smoking status Former smoker Jun 11, 2014 bone density Complete std dev Medications Medication Instructions Start Date Status METFORMIN HCL 500 MG TABS take one tablet by mouth twice a day Jun 02, 2014 Active LOSARTAN POTASSIUM-HCTZ 100-25 MG TABS take one tablet by mouth daily Jun 02, 2014 Active METOPROLOL SUCCINATE ER 25 MG [id number] take one tablet by mouth daily Jun [...] for 30 minutes Jun 19, 2014 Active Immunizations Vaccine Date Status pneumococcal [...] observation BP LEONIDAS #2 79 mm Hg Results Date Description Test Name [...]
--- OUTSIDE RECORDS SUMMARY | 2018-10-04 16:25 | XMS REPORT | Continuity of Care Document ---
Author Author [facility] Organization [facility] Address Unknown Phone Unavailable Care Team Providers Care Thresher Broomcorn Name Role Phone MD Radha, Padmaja GALLARDO Unavailable Insurance Providers Payer name Policy type / Coverage type Policy ID Covered constitution party ID Policy Mendez [facility] (MEDICARE REPL Encounters Encounter Performer Location Date Office Visit Padmaja Garcia MD [facility] Jun 02, 2014 Problems Problem Effective Dates Problem Status [...] 2014 Active METOPROLOL SUCCINATE ER 25 MG [id number] take one tablet by mouth daily Jun [...]
--- OUTSIDE RECORDS SUMMARY | 2018-10-04 16:25 | XMS REPORT | Continuity of Care Document ---
Author Author [facility] Organization [facility] Address Unknown Phone Unavailable Care Team Providers Care Victims Advocate Clerk/Specialist Name Role Phone MD Radha, Padmaja GALLARDO Unavailable Insurance Providers Payer name Policy type / Coverage type Policy ID Covered alliance party ID Policy Mendez [facility] (MEDICARE REPL Encounters Encounter Performer Location Date Office Visit Padmaja Garcia MD [facility] Jan 21, 2015 Problems Problem Effective Dates Problem Status PREVENTIVE [...] 2014 Active METOPROLOL SUCCINATE ER 25 MG [id number] take one tablet by mouth daily Jun [...] 30 minutes Jun 19, 2014 Active MARIANO SHERMAN 33G MISC use as directed Sep 13, [...]
--- OUTSIDE RECORDS SUMMARY | 2018-10-04 16:25 | XMS REPORT | Summary of Care ---
Author Author [facility] Organization [facility] Address Unknown Phone Unavailable Encounter HQ Valente(FIN) [id number] Date(s): 09/09/18 - 09/09/18 [facility] [address] [place], [place] [address] [phone] Attending Physician: Joslyn Lee MD Referring Physician: Joslyn Lee MD Vital Signs Most recent to 1 oldest [Reference Range]: Blood Pressure 147/72 mmHg [90-140/60-90 mmHg] *HI* (08/23/18 8:59 AM) Peripheral Pulse 89 bpm Rate [60-100 bpm] (08/23/18 8:59 AM) Problem List Condition Effective Dates Status Health [...] Substance Reaction Severity Status NKDA Active Medications ceFAZolin + sterile water 20 mL 2 gm, Route: IV, PRE OP, Start date: 09/08/18 23:00:00 CDT, Duration: 1 day, Sto p date: 09/09/18 22:59:00 CDT, ABX Indication: Surgical Prophylaxis Notes: (Same As: Ismael Mesa) MEDICATION WASTE Product Size: 1000 mgP roduct Wasted: ___ mg Start Date: 09/08/18 Stop Date: 09/09/18 Status: Discontinued hydrochlorothiazide-valsartan 12.5 mg-320 mg oral tablet 1 tab, PO, Daily, # 90 tab, 1 Refill(s) Start Date: 08/23/18 Status: Ordered Results No data available for this section [...] Pneumovax 23: 02-23-09 ; Data migrated from [employer] on 12/25/2014. Procedures Procedure Date Related Diagnosis [...] Clinical Document Author: Joslyn Lee MD Date: 09/09/18 R2 History and Physical CC: here for surgery History of Present Illness: 78 yo with PMH Alzheimer's, cHTN, T2DM here for surgical management of pelvic organ prolapse. Pt had Hysterectomy & had BSO . Pt has Kidney stones and saw Urology Pt cleared by Urology to proceed with prolpase surgery with no further work up /imaging as pt is asymptomatic Pt on Detrol given by PCP , asked to stop it Pt denies bothersome GENIA , does not want sling. 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 ROUTER HAND History Sp LILY Allergies: NKDA Current Meds: Atorvastatin Calcium 10 MG Oral Tablet; TAKE 1 TABLET AT BEDTIME; Calcium 600+D3 600-400 MG-UNIT Oral Tablet; Diovan HCT 320-12.5 MG Oral Tablet; TAKE 1 TABLET ONCE DAILY; Donepezil HCl - 10 MG Oral Tablet; TAKE 1 TABLET DAILY DIRECTED; Estradiol 0.1 MG/GM Vaginal Cream; 0.5 grams 2 times per week; hydrALAZINE HCl - 50 MG Oral Tablet; TAKE 1 TABLET TWICE DAILY; Labetalol HCl - 200 MG Oral Tablet; TAKE 1 TABLET TWICE DAILY; metFORMIN HCl - 500 MG Oral Tablet; TAKE DIRECTED; Pantoprazole Sodium 40 MG Oral Tablet Delayed Release; TAKE 1 TABLET DAILY; Tolterodine Tartrate ER 4 MG Oral Capsule Extended Release 24 Hour; Valtrex 500 MG Oral Tablet; TAKE 1 TABLET TWICE DAILY; Venlafaxine HCl - 75 MG Oral Tablet; TAKE 1 TABLET DAILY; Past Medical History: Alzheimer's, cHTN, T2DM Surgical History: LILY, BSO Family History: noncontributory Social History: negx3 Vitals: please review EMR PE: Gen: awake, A&Ox3 Resp: no acute distress Abd: soft, nontender Pelvic: deferred to day of surgery Labs: Hgb: 14.3 Imaging NA Assessment/Plan: 78 yo with PMH Alzheimer's, cHTN, T2DM here for surgical management of pelvic organ prolapse 1. Pelvic organ prolapse - pt bothered by pelvic organ prolapse - Surg Hx: LILY, BSO - Hgb: 14.3 - Plan for vaginal vault suspension, anterior and posterior repair, cystocopy. Discussed r/b/a including bleeding, pain, infection and damage to surrounding organs. Pt agrees and would like to proceed 2. Comorbidities - T2DM: metformin 500 mg BID - Alzheimer's: Donezepil 10 mg daily - cHTN: Estradiol 0.1 MG/GM Vaginal Cream; 0.5 grams 2 times per week; hydrALAZINE HCl - 50 MG Oral Tablet; TAKE 1 TABLET TWICE DAILY; Labetalol HCl - 200 MG Oral Tablet; TAKE 1 TABLET TWICE DAILY; Dispo: Proceed with surgery as planned Tram Romero, PGY-2
--- OUTSIDE RECORDS SUMMARY | 2018-10-04 16:25 | XMS REPORT | Summary of Care ---
Author Author [facility] Organization [facility] Address Unknown Phone Unavailable Encounter ALEJANDRO Victor(MENA) [id number] Date(s): 07/16/18 - 07/16/18 [facility] [address] [place] [phone] Discharge Disposition: Home or Self Care Attending Physician: Joslyn Lee MD Referring Physician: Joslyn Lee MD Vital Signs No data available for this section Problem List Condition Effective Dates Status Health Status Informant Alzheimer's Active disease(Confirmed) Loaiza's Active esophagus(Confirmed) Benign essential 06/02/14 Active hypertension(Confirm ed)1, 2 Body mass index 30+ 06/02/14 Active - obesity3, 4 Dementia5, 6 06/19/14 Active Depression(Confirmed Active ) Hyperlipidemia(Confi 06/02/14 Active rmed)7, 8 Osteopenia(Confirmed Active ) Type 2 diabetes 06/02/14 Active mellitus(Confirmed)9 , 10 UI (urinary Active incontinence)(Confir med) 1Data migrated [...] Pneumovax 23: 02-23-09 ; Data migrated from [employer] on 12/25/2014. Procedures Procedure Date Related Diagnosis Body Site Status Diabetic Retinopathy Study 7 field 12/10/17 Completed stereoscopic fundus photography1 Mammogram - screening2 08/22/17 Completed Bone density scan3 08/11/16 Completed Colonoscopy4 03/30/16 Completed Endoscopy5 03/30/16 Completed Eye examination 11/18/13 Completed Hysterectomy 1996 Completed Tonsillectomy Completed 1No DR. Dr Ratliff 2There is no mammographic evidence of malignancy. A 1 year screening mammogram is recommended. 3Osteopenia left femoral neck 4s/p polyectomy Next 3 years 5Barrett's esophagus Next 3 years Social History Social History Type Response Alcohol Current, Type Beer. Frequency: 1-2 times per year. Smoking Status Former smoker; Exposure to Tobacco Smoke None; Cigarette Smoking Last 365 Days No; Reg Smoking Cessation Counseling No; Stopped at age: 62; entered on: 04/02/18 Assessment and Plan No data available for this section
--- OUTSIDE RECORDS SUMMARY | 2018-10-04 16:25 | XMS REPORT | Continuity of Care Document ---
Author Author [facility] Organization [facility] Address Unknown Phone Unavailable Care Team Providers Care Sales Performance Analyst Name Role Phone MD Radha, Padmaja GALLARDO Unavailable Insurance Providers Payer name Policy type / Coverage type Policy ID Covered republican ID Policy Mendez [facility] (MEDICARE REPL Encounters Encounter Performer Location Date Lab Report Padmaja Garcia MD [facility] Jun 08, 2014 Problems Problem Effective Dates Problem Status [...] 2014 Active METOPROLOL SUCCINATE ER 25 MG [id number] take one tablet by mouth daily Jun [...]
--- OUTSIDE RECORDS SUMMARY | 2018-10-04 16:25 | XMS REPORT | Summary of Care ---
Author Author [facility] Organization [facility] Address Unknown Phone Unavailable Encounter HQ Valente(FIN) [id number] Date(s): 12/24/17 - 12/24/17 [facility] [address], [address] [place] [address] [phone] Discharge Disposition: Home or Self Care Attending Physician: Padmaja Garcia MD Vital Signs Most recent to 1 2 oldest [Reference Range]: Height 165.1 cm (12/24/17 1:05 PM) Temperature Oral 98.8 DegF [96.4-99.1 DegF] (12/24/17 1:05 PM) Blood Pressure 165/72 mmHg 179/75 mmHg [90-140/60-90 mmHg] *HI* *HI* (12/24/17 1:33 PM) (12/24/17 1:05 PM) Respiratory Rate 16 BRMIN [14-20 BRMIN] (12/24/17 1:05 PM) Peripheral Pulse 62 bpm Rate [60-100 bpm] (12/24/17 1:05 PM) Weight 83.182 kg (12/24/17 1:05 PM) Body Mass Index 30.52 m2 (12/24/17 1:05 PM) Problem List Condition Effective Dates Status Health Status Informant Alzheimer's Active disease(Confirmed) Loaiza's Active esophagus(Confirmed) Benign essential 06/02/14 Active hypertension(Confirm ed)1, 2 Body mass index 30+ 06/02/14 Active - obesity3, 4 Dementia5, 6 06/19/14 Active Depression(Confirmed Active ) Hyperlipidemia(Confi 06/02/14 Active rmed)7, 8 Osteopenia(Confirmed Active ) Type 2 diabetes 06/02/14 Active mellitus(Confirmed)9 , 10 UI (urinary Active incontinence)(Confir med) 1Data migrated from [employer] on 10/20/14. 2Data migrated from [employer] [...] Substance Reaction Severity Status NKDA Active Medications hydrALAZINE 100 mg oral tablet See Instructions, # 180 tab, Refill(s) 1, TAKE 1 TABLET BY MOUTH TWICE A DAY, Ph armacy: [facility]/pharmacy #[id number] Start Date: 03/22/18 Stop Date: 04/02/18 Status: Discontinued hydrALAZINE 100 mg oral tablet 100 mg=1 tab, PO, BID, # 180 tab, 0 Refill(s), Pharmacy: [facility]/pharmacy #[id number], Inc rease hydralazyne from 50 to 100 mg Start Date: 12/24/17 Stop Date: 03/22/18 Status: Completed hydrochlorothiazide-irbesartan 12.5 mg-300 mg oral tablet 1 tab, PO, Daily, # 90 tab, 0 Refill(s), Pharmacy: [facility]/pharmacy #[id number], stop vals noel hctz Start Date: 12/24/17 Stop Date: 03/22/18 Status: Completed hydrochlorothiazide-irbesartan 12.5 mg-300 mg oral tablet See Instructions, # 90 tab, Refill(s) 1, TAKE 1 TABLET BY MOUTH EVERY DAY, Pharm acy: [facility]/pharmacy #[id number] Start Date: 03/22/18 Status: Ordered labetalol 200 mg oral tablet 200 mg=1 tab, PO, BID, # 180 tab, 1 Refill(s), Pharmacy: [facility]/pharmacy #[id number] Start Date: 12/24/17 Stop Date: 01/27/18 Status: Completed metFORMIN 500 mg oral tablet See Instructions, TAKE 1 TABLET TWICE A DAY, # 180 tab, 1 Refill(s), Pharmacy: [facility] /pharmacy #[id number] Start Date: 12/24/17 Stop Date: 04/02/18 Status: Discontinued pantoprazole 40 mg oral enteric coated tablet See Instructions, TAKE 1 TABLET EVERY DAY, # 90 tab, 1 Refill(s), Pharmacy: [facility] pharmacy #[id number] Start Date: 12/24/17 Status: Ordered PARoxetine 20 mg oral tablet =1 tab, PO, Daily, # 90 tab, Refill(s) 1, [id number] Start Date: 06/10/18 Status: Ordered PARoxetine 20 mg oral tablet 20 mg=1 tab, PO, Daily, # 90 tab, 0 Refill(s), [id number] Start Date: 12/24/17 Stop Date: 06/10/18 Status: Completed tolterodine 4 mg oral capsule, extended release =1 cap, PO, Daily, # 90 unknown unit, Refill(s) 1, [id number] Start Date: 06/25/18 Status: Ordered tolterodine 4 mg oral capsule, extended release See Instructions, TAKE 1 CAPSULE EVERY DAY, # 90 tab, 1 Refill(s), [id number] Start Date: 12/24/17 Stop Date: 06/25/18 Status: Completed Results No data available for this section [...] Pneumovax 23: 02-23-09 ; Data migrated from [employer] on 12/25/2014. Procedures Procedure Date Related Diagnosis [...]
--- OUTSIDE RECORDS SUMMARY | 2018-10-04 16:25 | XMS REPORT | Summary of Care ---
Author Author [facility] Organization [facility] Address Unknown Phone Unavailable Encounter HQ Valente(FIN) [id number] Date(s): 08/09/18 - 08/10/18 [facility] [address] [place] [phone] Vital Signs No data available for this [...] Substance Reaction Severity Status NKDA Active Medications hydrochlorothiazide-irbesartan 12.5 mg-300 mg oral tablet 1 tab, PO, Daily, # 90 tab, 1 Refill(s), Pharmacy: [facility]/pharmacy #[id number] Start Date: 08/09/18 Status: Ordered Results No data available for [...] Pneumovax 23: 02-23-09 ; Data migrated from [employer] on 12/25/2014. Procedures Procedure Date Related Diagnosis [...]
--- OUTSIDE RECORDS SUMMARY | 2018-10-04 16:25 | XMS REPORT | Summary of Care ---
Author Author [facility] Organization [facility] Address Unknown Phone Unavailable Encounter ALEJANDRO Victor(FIN) [id number] Date(s): 08/16/18 - 08/16/18 [facility] [address] [place] [address]- [phone] Discharge Disposition: Home or Self Care Attending Physician: Padmaja Garcia MD Vital Signs Most recent to 1 oldest [Reference Range]: Height 152.4 cm (08/16/18 10:23 AM) Temperature Oral 97.0 DegF [96.4-99.1 DegF] (08/16/18 10:23 AM) Blood Pressure 144/72 mmHg [90-140/60-90 mmHg] *HI* (08/16/18 10:23 AM) Respiratory Rate 16 BRMIN [14-20 BRMIN] (08/16/18 10:23 AM) Peripheral Pulse 76 bpm Rate [60-100 bpm] (08/16/18 10:23 AM) Weight 80.909 kg (08/16/18 10:23 AM) Body Mass Index 34.84 m2 (08/16/18 10:23 AM) Problem List Condition Effective Dates Status [...] Substance Reaction Severity Status NKDA Active Medications amLODIPine 10 mg oral tablet 10 mg=1 tab, PO, Daily, # 90 tab, 1 Refill(s) Start Date: 08/16/18 Stop Date: 08/16/18 Status: Discontinued amLODIPine 10 mg oral tablet 10 mg=1 tab, PO, Daily, # 90 tab, 1 Refill(s), Pharmacy: [facility] #[id number] Start Date: 08/16/18 Status: Ordered atorvastatin 10 mg oral tablet See Instructions, TAKE 1 TABLET AT BEDTIME, # 90 tab, 1 Refill(s), Pharmacy: [facility] #[id number] Start Date: 08/16/18 Status: Ordered diclofenac potassium 50 mg oral tablet 50 mg=1 tab, PO, Q12H, PRN Pelvic Pain, X 10 day, # 40 tab, 0 Refill(s), [id number] Start Date: 08/16/18 Stop Date: 08/26/18 Status: Ordered donepezil 10 mg oral tablet See Instructions, TAKE 1 TABLET EVERY DAY, # 90 tab, 1 Refill(s), Pharmacy: [facility] #[id number] Start Date: 08/16/18 Status: Ordered hydrALAZINE 100 mg oral tablet 100 mg=1 tab, PO, TID, # 270 tab, 1 Refill(s), Pharmacy: [facility] #[id number] Start Date: 08/16/18 Stop Date: 02/12/19 Status: Ordered hydrochlorothiazide-irbesartan 12.5 mg-300 mg oral tablet See Instructions, TAKE 1 TABLET BY MOUTH EVERY DAY, # 90 tab, 1 Refill(s), [id number] Start Date: 08/16/18 Status: Ordered labetalol 200 mg oral tablet See Instructions, TAKE 1 TABLET BY MOUTH TWICE A DAY, # 180 tab, 1 Refill(s), Ph armacy: [facility] #[id number] Start Date: 08/16/18 Status: Ordered metFORMIN 500 mg oral tablet 500 mg=1 tab, PO, Daily, # 90 tab, 1 Refill(s), [id number] Start Date: 08/16/18 Stop Date: 02/12/19 Status: Ordered PARoxetine 20 mg oral tablet =1 tab, PO, Daily, # 90 tab, 1 Refill(s), [id number] Start Date: 08/16/18 Status: Ordered tolterodine 4 mg oral capsule, extended release =1 cap, PO, Daily, # 90 tab, 1 Refill(s), [id number] Start Date: 08/16/18 Status: Ordered Results No data available for [...] Pneumovax 23: 02-23-09 ; Data migrated from [employer] on 12/25/2014. Procedures Procedure Date Related Diagnosis [...] No; Stopped at age: 62; entered on: 08/16/18 Assessment and Plan No data available for this section
--- OUTSIDE RECORDS SUMMARY | 2018-10-04 16:26 | XMS REPORT | Summary of Care ---
Author Author [facility] Organization [facility] Address Unknown Phone Unavailable Encounter HQ Antoniontr_xochitl(FIN) [id number] Date(s): 11/30/17 - 12/01/17 [facility] [address], [address] [place] [address]- [phone] Vital Signs No data available for this [...] Pneumovax 23: 02-23-09 ; Data migrated from [employer] on 12/25/2014. Procedures Procedure Date Related Diagnosis [...] No; Stopped at age: 62; entered on: 10/21/17 Assessment and Plan No data available for this section
--- OUTSIDE RECORDS SUMMARY | 2018-10-04 16:26 | XMS REPORT | Summary of Care ---
Author Author [facility] Organization [facility] Address Unknown Phone Unavailable Encounter HQ Valente(FIN) [id number] Date(s): 10/21/17 - 10/21/17 [facility] [address] [place] [address]- [phone] Encounter Diagnosis Fall from steps (Discharge Diagnosis) - 10/21/17 Peripheral vertigo (Discharge Diagnosis) - 10/21/17 Discharge Disposition: Home or Self Care Attending Physician: Jeevan Jones MD Vital Signs 1 2 3 Most recent to oldest [Reference Range]: 152.4 cm (10/21/17 10:58 AM) Height 98.1 DegF (10/21/17 10:58 AM) Temperature Oral [96.4-99.1 DegF] 184/81 mmHg *HI* (10/21/17 2:32 PM) 196/104 mmHg *HI* (10/21/17 11:33 AM) 200/88 mmHg *HI* (10/21/17 11:20 AM) Blood Pressure [90-140/60-90 mmHg] 18 BRMIN (10/21/17 2:32 PM) 24 BRMIN *HI* (10/21/17 11:33 AM) 20 BRMIN (10/21/17 11:20 AM) Respiratory Rate [14-20 BRMIN] 87 bpm (10/21/17 10:58 AM) Peripheral Pulse Rate [60-100 bpm] 72.727 kg (10/21/17 10:58 AM) Weight 31.31 m2 (10/21/17 10:58 AM) Body Mass Index Problem List Condition [...] Substance Reaction Severity Status NKDA Active Medications Antivert 50 mg, 2 tab, Route: PO, Drug form: TAB, ONCE, Dosing Weight 72.727, kg, Priorit y: STAT, Start date: 10/21/17 12:41:00 CDT, Stop date: 10/21/17 12:41:00 CDT Notes: (Same as: Antivert) Start Date: 10/21/17 Stop Date: 10/21/17 Status: Completed Antivert 25 mg oral tablet 25 mg=1 tab, PO, TID, PRN Dizziness, X 7 day, # 21 tab, 0 Refill(s), Pharmacy: [facility]/pharmacy #[id number] Start Date: 10/21/17 Stop Date: 10/28/17 Status: Ordered Sodium Chloride 0.9% (Bolus) IV 1,000 mL, 1000 ml/hr, Infuse Over: 1 hr, Route: IV, 1,000, Drug form: INJ, ONCE, Priority: STAT, Dosing Weight 72.727 kg, Start date: 10/21/17 11:21:00 CDT, Stop date: 10/21/17 11:21:00 CDT Start Date: 10/21/17 Stop Date: 10/21/17 Status: Completed Results ELECTROLYTES Most recent to 1 oldest [Reference Range]: Sodium Lvl [135-145 141 mEq/L mEq/L] (10/21/17 11:31 AM) Potassium Lvl 4.0 mEq/L [3.5-5.1 mEq/L] (10/21/17 11:31 AM) Chloride Lvl [95-109 105 mEq/L mEq/L] (10/21/17 11:31 AM) CO2 [24-32 mEq/L] 27 mEq/L (10/21/17 11:31 AM) AGAP [10.0-20.0 13.0 mEq/L mEq/L] (10/21/17 11:31 AM) CHEM PANEL Most recent to 1 oldest [Reference Range]: Creatinine Lvl 1.05 mg/dL [0.50-1.40 mg/dL] (10/21/17 11:31 AM) eGFR 52 mL/min/1.73m2 1 *NA* (10/21/17 11:31 AM) BUN [7-22 mg/dL] 12 mg/dL (10/21/17 11:31 AM) Glucose Lvl [70-99 134 mg/dL mg/dL] *HI* (10/21/17 11:31 AM) Calcium Lvl 9.0 mg/dL [8.5-10.5 mg/dL] (10/21/17 11:31 AM) 1Result Comment: The eGFR is calculated using [...] be mul tiplied by the estimated BMI. CARDIAC ENZYMES Most recent to 1 oldest [Reference Range]: CK MB [0.5-3.6 2.0 ng/mL ng/mL] (10/21/17 11:31 AM) Troponin-I <0.02 ng/mL [0.00-0.40 ng/mL] (10/21/1731 AM) HEMATOLOGY Most recent to 1 oldest [Reference Range]: WBC [3.7-10.4 K/CMM] 6.6 K/CMM (10/21/1731 AM) RBC [4.20-5.40 4.85 M/CMM M/CMM] (10/21/17 1131 AM) Hgb [12.0-16.0 g/dL] 14.3 g/dL (10/21/17 1131 AM) Hct [36.0-48.0 %] 42.8 % (10/21/1731 AM) MCV [80.0-98.0 fL] 88.3 fL (10/21/1731 AM) MCH [27.0-31.0 pg] 29.5 pg (10/21/17 AM) MCHC [32.0-36.0 33.4 g/dL g/dL] (10/21/17 1131 AM) RDW [11.5-14.5 %] 13.2 % (10/21/1731 AM) MPV [7.4-10.4 fL] 9.4 fL (10/21/1731 AM) Platelet [133-450 173 K/CMM K/CMM] (10/21/17 1131 AM) Segs [45.0-75.0 %] 66.2 % (10/21/17 1131 AM) Lymphocytes 22.9 % [20.0-40.0 %] (10/21/17 1131 AM) Monocytes [2.0-12.0 7.6 % %] (10/21/17 1131 AM) Eosinophils [0.0-4.0 2.7 % %] (10/21/17 1131 AM) Basophils [0.0-1.0 0.6 % %] (10/21/17 11:31 AM) Segs-Bands # 4.3 K/CMM [1.5-8.1 K/CMM] (10/21/17 11:31 AM) Lymphocytes # 1.5 K/CMM [1.0-5.5 K/CMM] (10/21/17 11:31 AM) Monocytes # [0.0-0.8 0.5 K/CMM K/CMM] (10/21/17 11:31 AM) Eosinophils # 0.2 K/CMM [0.0-0.5 K/CMM] (10/21/17 11:31 AM) Immunizations Given and Recorded Vaccine Date Status Refusal Reason influenza virus vaccine, inactivated1 02/01/17 Given influenza virus vaccine, inactivated 04/29/15 Given diphtheria/pertussis, acel/tetanus adult 12/16/15 Given pneumococcal 23-valent vaccine2 06/02/14 Given 1Result Comment: Patient waited in room 10 mins, no allergic reaction. 2Result Comment: pneumovax 23 [cvx33]. Migrated from OBS VIS: Pneumovax 23: 02-23-09 ; Data migrated from [employer] on 12/25/2014. Procedures Procedure Date Related Diagnosis [...]
--- OUTSIDE RECORDS SUMMARY | 2018-10-04 16:26 | XMS REPORT | Summary of Care ---
Author Author [facility] Organization [facility] Address Unknown Phone Unavailable Encounter HQ Valente(FIN) [id number] Date(s): 12/07/17 - 12/08/17 [facility] [address], [address] [place] [address]- [phone] Vital Signs No data available for this [...] Substance Reaction Severity Status NKDA Active Medications atorvastatin 10 mg oral tablet 10 mg=1 tab, PO, Bedtime, # 90 tab, 1 Refill(s), Pharmacy: [facility]/pharmacy #[id number] Start Date: 12/07/17 Stop Date: 12/11/17 Status: Completed Results No data available for [...] Pneumovax 23: 02-23-09 ; Data migrated from [employer] on 12/25/2014. Procedures Procedure Date Related Diagnosis [...]
--- OUTSIDE RECORDS SUMMARY | 2018-10-04 16:26 | XMS REPORT | Summary of Care ---
Author Author [facility] Organization [facility] Address Unknown Phone Unavailable Encounter HQ Valente(FIN) [id number] Date(s): 08/22/17 - 08/22/17 [facility] [address] [place] [address]- Encounter Diagnosis Encounter for screening mammogram for malignant neoplasm of breast (Final) - 08/29/17 Discharge Disposition: Home or Self Care Attending Physician: Padmaja Garcia MD Referring Physician: Padmaja Garcia MD Vital Signs No [...] Pneumovax 23: 02-23-09 ; Data migrated from [employer] on 12/25/2014. Procedures Procedure Date Related Diagnosis [...]
--- OUTSIDE RECORDS SUMMARY | 2018-10-04 16:26 | XMS REPORT | Summary of Care ---
Author Author [facility] Organization [facility] Address Unknown Phone Unavailable Encounter ALEJANDRO Victor(FIN) [id number] Date(s): 08/28/18 - 08/28/18 [facility] [address] [place] [address]- [phone] Discharge Disposition: Home or Self Care Attending [...] Pneumovax 23: 02-23-09 ; Data migrated from [employer] on 12/25/2014. Procedures Procedure Date Related Diagnosis Body Site Status Bone density scan1, 2 08/28/18 Completed Mammogram - screening3, 4 08/28/18 Completed Diabetic Retinopathy Study 7 field 12/10/17 Completed stereoscopic fundus photography5 Colonoscopy6 03/30/16 Completed Endoscopy7 03/30/16 Completed Eye examination 11/18/13 Completed Hysterectomy 1996 Completed Tonsillectomy Completed . Osteopenia of the left femoral neck. 2. [...] Stopped at age: 62; 1 entered on: 08/23/18 1QUIT 5 YEARS AGO Assessment and Plan No data available for this section
--- OUTSIDE RECORDS SUMMARY | 2018-10-04 16:26 | XMS REPORT | Summary of Care ---
Author Author [facility] Organization [facility] Address Unknown Phone Unavailable Encounter HQ Miguel_xochitl(FIN) [id number] Date(s): 06/04/17 - 06/04/17 [facility] [address], [address] [place] [address]- [phone] Attending Physician: Padmaja Garcia MD Vital Signs [...] Pneumovax 23: 02-23-09 ; Data migrated from [employer] on 12/25/2014. Procedures Procedure Date Related Diagnosis [...]
--- OUTSIDE RECORDS SUMMARY | 2018-10-04 16:26 | XMS REPORT | Summary of Care ---
Author Author [facility] Organization [facility] Address Unknown Phone Unavailable Encounter HQ Miguel_xochitl(FIN) [id number] Date(s): 08/05/18 - 08/05/18 [facility] [address] [place] [address]- Attending Physician: Padmaja Garcia MD Vital Signs [...] Status Refusal Reason influenza virus vaccine, inactivated1 11/13/18 Given influenza virus vaccine, inactivated2 02/01/17 Given influenza virus vaccine, inactivated 04/29/15 Given diphtheria/pertussis, acel/tetanus adult 12/16/15 Given pneumococcal 23-valent vaccine3 06/02/14 Given 1Result Comment: Patient waited in room ten mins no allergic reaction. 2Result Comment: Patient waited in room 10 mins, no allergic reaction. 3Result Comment: pneumovax 23 [cvx33]. Migrated from OBS VIS: Pneumovax 23: 02-23-09 ; Data migrated from [employer] on 12/25/2014. Procedures Procedure Date Related Diagnosis [...]
--- OUTSIDE RECORDS SUMMARY | 2018-10-04 16:26 | XMS REPORT | Summary of Care ---
Author Author [facility] Organization [facility] Address Unknown Phone Unavailable Encounter HQ Valente(FIN) [id number] Date(s): 09/03/18 - 09/04/18 [facility] [address] [place] [address]- Vital Signs No data available for this [...] Substance Reaction Severity Status NKDA Active Medications meclizine 25 mg oral tablet 25 mg=1 tab, PO, Daily, PRN for dizziness, as needed for vertigo, X 20 day, # 30 tab, 0 Refill(s), Pharmacy: [facility]/pharmacy #[id number] Start Date: 09/03/18 Stop Date: 09/23/18 Status: Ordered Results No data available for [...] Pneumovax 23: 02-23-09 ; Data migrated from [employer] on 12/25/2014. Procedures Procedure Date Related Diagnosis [...]
--- OUTSIDE RECORDS SUMMARY | 2018-10-04 16:26 | XMS REPORT | Summary of Care ---
Author Author [facility] Organization [facility] Address Unknown Phone Unavailable Encounter HQ Miguel_xochitl(FIN) [id number] Date(s): 10/23/17 - 10/24/17 [facility] [address], [address] [place], [place] [address]- [phone] Vital Signs No data available for this [...] Pneumovax 23: 02-23-09 ; Data migrated from [employer] on 12/25/2014. Procedures Procedure Date Related Diagnosis [...]
--- OUTSIDE RECORDS SUMMARY | 2018-10-04 16:26 | XMS REPORT | Summary of Care ---
Author Author [facility] Organization [facility] Address Unknown Phone Unavailable Encounter HQ Valente(FIN) [id number] Date(s): 11/09/17 - 11/10/17 [facility] [address], [address] [place] [address]- [phone] Vital Signs No data available for this [...] Substance Reaction Severity Status NKDA Active Medications pantoprazole 40 mg oral enteric coated tablet 40 mg=1 tab, PO, Daily, # 90 tab, 0 Refill(s), Pharmacy: [facility]/pharmacy #[id number] Start Date: 11/09/17 Status: Ordered Results No data available for [...] Pneumovax 23: 02-23-09 ; Data migrated from [employer] on 12/25/2014. Procedures Procedure Date Related Diagnosis [...]
--- OUTSIDE RECORDS SUMMARY | 2018-10-04 16:26 | XMS REPORT | Summary of Care ---
Author Author [facility] Organization [facility] Address Unknown Phone Unavailable Encounter HQ Valente(FIN) [id number] Date(s): 12/07/17 - 12/08/17 [facility] [address], [address] [place] [address]- [phone] Vital Signs No data available for this [...] Bedtime, # 90 tab, 1 Refill(s), Pharmacy: [facility]/pharmacy #[id number] Start Date: 12/07/17 Status: Ordered Results No data available for [...] Pneumovax 23: 02-23-09 ; Data migrated from [employer] on 12/25/2014. Procedures Procedure Date Related [...]
--- OUTSIDE RECORDS SUMMARY | 2018-10-04 16:26 | XMS REPORT | Summary of Care ---
Author Author [facility] Organization [facility] Address Unknown Phone Unavailable Encounter HQ Valente(FIN) [id number] Date(s): 08/30/17 - 08/30/17 [facility] [address], [address] [place] [address]- [phone] Discharge Disposition: Home or Self Care Attending Physician: Padmaja Garcia MD Vital Signs Most recent to 1 oldest [Reference Range]: Height 152.4 cm (08/30/17 12:11 PM) Temperature Oral 98.5 DegF [96.4-99.1 DegF] (08/30/17 12:11 PM) Blood Pressure 156/63 mmHg [90-140/60-90 mmHg] *HI* (08/30/17 12:11 PM) Respiratory Rate 16 BRMIN [14-20 BRMIN] (08/30/17 12:11 PM) Peripheral Pulse 67 bpm Rate [60-100 bpm] (08/30/17 12:11 PM) Weight 79.091 kg (08/30/17 12:11 PM) Body Mass Index 34.05 m2 (08/30/17 12:11 PM) Problem List Condition Effective Dates Status [...] Active hypertension(Confirm ed) 1Data migrated from [employer] on 10/20/14. 2Data migrated from [employer] [...] Substance Reaction Severity Status NKDA Active Medications venlafaxine 75 mg oral capsule, extended release 75 mg=1 cap, PO, Daily, # 30 cap, 1 Refill(s), Pharmacy: [facility]/pharmacy #[id number] Start Date: 08/30/17 Status: Ordered Results No data available for [...] Pneumovax 23: 02-23-09 ; Data migrated from [employer] on 12/25/2014. Procedures Procedure Date Related Diagnosis [...]
--- OUTSIDE RECORDS SUMMARY | 2018-10-04 16:26 | XMS REPORT | Summary of Care ---
Author Author [facility] Organization [facility] Address Unknown Phone Unavailable Encounter HQ Valente(FIN) [id number] Date(s): 08/02/17 - 08/02/17 [facility] [address], [address] [place] [address]- [phone] Discharge Disposition: Home or Self Care Attending Physician: Padmaja Garcia MD Vital Signs Most recent to 1 2 oldest [Reference Range]: Height 152.4 cm (08/02/17 11:13 AM) Temperature Oral 97.2 DegF [96.4-99.1 DegF] (08/02/17 11:13 AM) Blood Pressure 174/72 mmHg 209/90 mmHg [90-140/60-90 mmHg] *HI* *HI* (08/02/17 11:48 AM) (08/02/17 11:13 AM) Respiratory Rate 16 BRMIN [14-20 BRMIN] (08/02/17 11:13 AM) Peripheral Pulse 80 bpm Rate [60-100 bpm] (08/02/17 11:13 AM) Weight 78.636 kg (08/02/17 11:13 AM) Body Mass Index 33.86 m2 (08/02/17 11:13 AM) Problem List Condition Effective Dates Status [...] coat Active hypertension(Confirm ed) 1Data migrated from [facility] on 10/20/14. 2Data migrated from [employer] [...] Reaction Severity Status NKDA Active Medications hydrALAZINE 50 mg oral tablet 50 mg=1 tab, PO, BID, # 180 tab, 1 Refill(s), [id number] Start Date: 08/02/17 Stop Date: 01/29/18 Status: Ordered hydrochlorothiazide-valsartan 12.5 mg-320 mg oral tablet See Instructions, TAKE 1 TABLET BY MOUTH DAILY, # 90 tab, 1 Refill(s), [id number] Start Date: 08/02/17 Status: Ordered labetalol 200 mg oral tablet 200 mg=1 tab, PO, BID, # 180 tab, 1 Refill(s), [id number] Start Date: 08/02/17 Stop Date: 01/29/18 Status: Ordered metFORMIN 500 mg oral tablet See Instructions, TAKE 1 TABLET TWICE A DAY, # 180 tab, 1 Refill(s), Pharmacy: [facility]/pharmacy #[id number] Start Date: 08/02/17 Status: Ordered pantoprazole 40 mg oral enteric coated tablet 40 mg=1 tab, PO, Daily, X 90 day, # 90 tab, 0 Refill(s), Pharmacy: [facility]/pharmacy #[id number] Start Date: 08/02/17 Stop Date: 10/31/17 Status: Completed PARoxetine 20 mg oral tablet 20 mg=1 tab, PO, Daily, # 30 tab, 0 Refill(s), [id number], Ins tead of fluoxetine Start Date: 08/02/17 Stop Date: 08/30/17 Status: Discontinued Results No data available for this section [...] Pneumovax 23: 02-23-09 ; Data migrated from [employer] on 12/25/2014. Procedures Procedure Date Related Diagnosis [...]
--- OUTSIDE RECORDS SUMMARY | 2018-10-04 16:26 | XMS REPORT | Summary of Care ---
Author Author [facility] Organization [facility] Address Unknown Phone Unavailable Encounter ALEJANDRO Victor(MENA) [id number] Date(s): 05/23/18 - 06/21/18 [facility] [address] [place] [address]- [phone] Discharge Disposition: Home or Self Care Attending [...] Pneumovax 23: 02-23-09 ; Data migrated from [employer] on 12/25/2014. Procedures Procedure Date Related Diagnosis [...]
--- OUTSIDE RECORDS SUMMARY | 2018-10-04 16:26 | XMS REPORT | Summary of Care ---
Author Author [facility] Organization [facility] Address Unknown Phone Unavailable Encounter HQ Valente(FIN) [id number] Date(s): 08/30/17 - 08/30/17 [facility] [address], [address] [place] [address]- [phone] Discharge Disposition: Home or Self Care Attending [...] Daily, # 30 cap, 1 Refill(s), Pharmacy: [facility]/pharmacy #[id number] Start Date: 08/30/17 Status: Ordered Results [...] 23: 02-23-09 ; [facility] migrated from [facility] on 12/25/2014. Procedures Procedure Date Related Diagnosis [...]
--- OUTSIDE RECORDS SUMMARY | 2018-10-04 16:26 | XMS REPORT | Summary of Care ---
Author Author [facility] Organization [facility] Address Unknown Phone Unavailable Encounter [facility](MENA) [id number] Date(s): 09/17/18 - 09/22/18 [facility] [address] [employer] provided by [facility] [employer] [facility] [employer] [facility] [place] [address]- Discharge Disposition: Home or Self Care Attending Physician: Lidia Gutierrez V Admitting Physician: Joslyn Lee MD Vital Signs 1 2 3 Most recent to oldest [Reference Range]: 152.4 cm (09/17/18 4:44 PM) Height 97.5 DegF (09/22/18 7:00 AM) 98.3 DegF (09/22/18 4:28 AM) 98 DegF (09/21/18 11:09 PM) Temperature Oral [96.4-99.1 DegF] 156/72 mmHg *HI* (09/22/18 7:00 AM) 156/69 mmHg *HI* (09/22/18 6:15 AM) 167/68 mmHg *HI* (09/22/18 5:09 AM) Blood Pressure [90-140/60-90 mmHg] 18 BRMIN (09/22/18 7:00 AM) 17 BRMIN (09/22/18 4:28 AM) 17 BRMIN (09/21/18 11:09 PM) Respiratory Rate [14-20 BRMIN] 74 bpm (09/22/18 7:00 AM) 68 bpm (09/22/18 4:28 AM) 75 bpm (09/21/18 11:09 PM) Peripheral Pulse Rate [60-100 bpm] 80.057 kg (09/17/18 4:44 PM) Weight 34.47 m2 (09/17/18 4:44 PM) Body Mass Index Problem List Condition Effective [...] Centricity on 10/20/14. Allergies, Adverse Reactions, Alerts No Known Medication Allergies Medications acetaminophen 1,000 mg, 2 tab, Route: PO, Drug form: TAB, Q6Hnow, Dosing Weight 80.057, kg, St art date: 09/19/18 16:00:00 CDT, Duration: 30 day, Stop date: 10/19/18 10:00:00 CDT Notes: Max acetaminophen 4000 mg/day (4 gm/day). (Same as: Tylenol Extra Streng th) Start Date: 09/19/18 Stop Date: 09/22/18 Status: Discontinued amLODIPine 10 mg, 1 tab, Route: PO, Drug form: TAB, Daily, Dosing Weight 80.057, kg, Start date: 09/20/18 9:00:00 CDT, Duration: 30 day, Stop date: 10/19/18 9:00:00 CDT Notes: (Same as: Norvasc) Start Date: 09/20/18 Stop Date: 09/22/18 Status: Discontinued ANES acetaminophen 1,000 mg, Route: PO, Drug form: TAB, ONCE, Dosing Weight 80.057, kg, PRN Pain Sc ore 1-3, Start date: 09/19/18 16:16:00 CDT Start Date: 09/19/18 Stop Date: 09/19/18 Status: Completed ANES flumazenil 0.2 mg, Route: IVP, PRN, Dosing Weight 80.057, kg, PRN Benzodiazepine Reversal, Initial dose, Start date: 09/19/18 16:16:00 CDT, Duration: 30 day, Stop date: 16:15:00 CDT Start Date: 09/19/18 Stop Date: 09/19/18 Status: Discontinued ANES hydrALAZINE 10 mg, Route: IVP, Q20Min, Dosing Weight 80.057, kg, PRN Elevated BP, Start date : 09/19/18 16:16:00 CDT, Duration: 2 doses or times, Stop date: Limited # of otilio es Start Date: 09/19/18 Stop Date: 09/19/18 Status: Discontinued ANES ibuprofen 600 mg, Route: PO, Drug form: TAB, Q6H, Dosing Weight 80.057, kg, PRN Pain Score 1-3, Start date: 09/19/18 16:16:00 CDT, Duration: 30 day, Stop date: 10/19/18 1 6:15:00 CDT Start Date: 09/19/18 Stop Date: 09/19/18 Status: Discontinued ANES labetalol 10 mg, Route: IVP, Q5Min, Dosing Weight 80.057, kg, PRN Elevated BP, Start date: 09/19/18 16:16:00 CDT, Duration: 5 doses or times, Stop date: Limited # of times Start Date: 09/19/18 Stop Date: 09/19/18 Status: Discontinued ANES naloxone 0.4 mg, Route: IVP, Q2MIN, Dosing Weight 80.057, kg, PRN Narcotic Reversal, Star t date: 09/19/18 16:16:00 CDT, Duration: 8 doses or times, Stop date: Limited # of times Start Date: 09/19/18 Stop Date: 09/19/18 Status: Discontinued ANES ondansetron 4 mg, Route: IVP, ONCE, Dosing Weight 80.057, kg, PRN Nausea & Vomiting, Start date: 09/19/18 16:16:00 CDT Start Date: 09/19/18 Stop Date: 09/19/18 Status: Discontinued ANES oxyCODONE 5 mg, Route: PO, Drug form: TAB, Q4H, Dosing Weight 80.057, kg, PRN Pain Score 4 -6, Start date: 09/19/18 16:16:00 CDT, Duration: 30 day, Stop date: 10/19/18 16: 15:00 CDT Start Date: 09/19/18 Stop Date: 09/19/18 Status: Discontinued Augmentin 875 mg oral tablet 875 mg=1 tab, PO, BID, X 10 day, # 20 tab, 0 Refill(s) Start Date: 09/21/18 Stop Date: 10/01/18 Status: Ordered cefepime 1 gm, Route: IVP, Drug form: INJ, Q8H, Dosing Weight 80.057, kg, CrCl >/=50 mL/min, Start date: 09/19/18 20:00:00 CDT, Duration: 5 day, Stop date: 09/24/18 12:00:00 CDT, ABX Indication: Intra-abdominal Infection Notes: MEDICATION WASTE Product Size: 1000 mgProduct Wasted: ___ mg Start Date: 09/19/18 Stop Date: 09/22/18 Status: Discontinued cefepime 2 gm, Route: IVP, Drug form: INJ, ABXQ8H, Dosing Weight 80.057, kg, CrCl >/=50 mL/min, ADULT CARE PROVIDER infection or neutropenic fever, Start date: 09/17/18 18:00:00 CDT, Duration: 2 day, Stop date: 09/19/18 10:00:00 CDT, ABX Indication: Genital Tract Infection Notes: MEDICATION WASTE Product Size: 2000 mgProduct Wasted: ___ mg Start Date: 09/17/18 Stop Date: 09/19/18 Status: Completed CeleBREX 200 mg, 1 cap, Route: PO, Drug form: CAP, BID, Dosing Weight 80.057, kg, Start d ate: 09/19/18 17:00:00 CDT, Duration: 30 day, Stop date: 10/19/18 9:00:00 CDT Notes: NSAID. Please check indication. Not for seizure. (Same As: CeleBREX) Start Date: 09/19/18 Stop Date: 09/22/18 Status: Discontinued dexamethasone (ANES) Route: IV, Drug form: INJ, ONCE, Stop date: 09/19/18 14:13:00 CDT Start Date: 09/19/18 Stop Date: 09/19/18 Status: Completed Dextrose 50% in Water (bolus) IV 25 gm, 50 mL, Route: IVP, Drug Form: INJ, Dosing Weight 80.057, kg, PRN, PRN Abn ormal Lab Result, Start date: 09/17/18 17:09:00 CDT, Duration: 30 day, Stop date : 10/17/18 17:08:00 CDT Start Date: 09/17/18 Stop Date: 09/22/18 Status: Discontinued Dextrose 50% Syringe 25 mL, Route: IVP, Dosing Weight 80.057, kg, PRN, PRN Abnormal Lab Result, Start date: 09/17/18 17:09:00 CDT, Duration: 30 day, Stop date: 10/17/18 17:08:00 CDT Start Date: 09/17/18 Stop Date: 09/17/18 Status: Discontinued Dextrose 50% Syringe 6.25 gm, 12.5 mL, Route: IVP, Drug Form: INJ, Dosing Weight 80.057, kg, PRN, PRN Abnormal Lab Result, Start date: 09/17/18 17:09:00 CDT, Duration: 30 day, Stop date: 10/17/18 17:08:00 CDT Start Date: 09/17/18 Stop Date: 09/22/18 Status: Discontinued donepezil 10 mg, 2 tab, Route: PO, Drug form: TAB, Daily, Dosing Weight 80.057, kg, Start date: 09/20/18 9:00:00 CDT, Duration: 30 day, Stop date: 10/19/18 9:00:00 CDT Notes: (Same as: Aricept) Start Date: 09/20/18 Stop Date: 09/22/18 Status: Discontinued ePHEDrine (ANES) Route: IV, Drug form: INJ, ONCE, Stop date: 09/19/18 14:39:00 CDT Start Date: 09/19/18 Stop Date: 09/19/18 Status: Completed fentaNYL (ANES) Route: IV, Drug form: INJ, ONCE, Stop date: 09/19/18 14:13:00 CDT Start Date: 09/19/18 Stop Date: 09/19/18 Status: Completed Flagyl 500 mg, 100 mL, Route: IV, Drug form: INJ, ABXQ8H, Dosing Weight 80.057, kg, Sta rt date: 09/19/18 22:00:00 CDT, Duration: 30 day, Stop date: 10/19/18 14:00:00 C DT, ABX Indication: Intra-abdominal Infection Start Date: 09/19/18 Stop Date: 09/22/18 Status: Discontinued Flagyl 500 mg, 100 mL, Route: IVPB, Drug form: INJ, ABXQ8H, Dosing Weight 80.057, kg, S tart date: 09/17/18 18:00:00 CDT, Duration: 2 day, Stop date: 09/19/18 10:00:00 CDT, ABX Indication: Genital Tract Infection Start Date: 09/17/18 Stop Date: 09/19/18 Status: Completed gabapentin 300 mg, 1 cap, Route: PO, Drug form: CAP, Q8H, Dosing Weight 80.057, kg, (CrCl > 60 ml/min), Start date: 09/19/18 16:00:00 CDT, Duration: 30 day, Stop date: 06/08 8:00:00 CDT Notes: (Same as: Neurontin) Start Date: 09/19/18 Stop Date: 09/22/18 Status: Discontinued hydrALAZINE 100 mg, 2 tab, Route: PO, Drug form: TAB, TID, Dosing Weight 80.057, kg, Start d ate: 09/20/18 9:00:00 CDT, Duration: 30 day, Stop date: 10/19/18 17:00:00 CDT Notes: (Same as: Apresoline) May interfere w/enteral feedings Take With Food Start Date: 09/20/18 Stop Date: 09/22/18 Status: Discontinued ibuprofen 600 mg, 1 tab, Route: PO, Drug form: TAB, Q8H, Dosing Weight 80.057, kg, PRN Toy n Score 6-10, Start date: 09/17/18 17:11:00 CDT, Duration: 30 day, Stop date: 17:10:00 CDT Start Date: 09/17/18 Stop Date: 09/19/18 Status: Discontinued ibuprofen 600 mg oral tablet 600 mg=1 tab, PO, Q6H, PRN Pain, take with food, X 10 day, # 40 tab, 0 Refill(s) Start Date: 09/21/18 Stop Date: 10/01/18 Status: Ordered insulin regular 100 units/mL human recombinant 7 unit, 0.07 mL, Route: SUB-Q, Drug form: SOLN, PRN, Dosing Weight 80.057, kg, P RN Abnormal Lab Result, Start date: 09/17/18 17:09:00 CDT, Duration: 30 day, Sto p date: 10/17/18 17:08:00 CDT Notes: (Same as: Humulin R) Roll in palms of hands gently; Do not shake vigorous ly. WASTE: F/P - Black; E - Municipal Trash BinStable for 31 days at r oom temperature Expires in days from Date Start Date: 09/17/18 Stop Date: 09/22/18 Status: Discontinued insulin regular 100 units/mL human recombinant 5 unit, 0.05 mL, Route: SUB-Q, Drug form: SOLN, PRN, Dosing Weight 80.057, kg, P RN Abnormal Lab Result, Start date: 09/17/18 17:09:00 CDT, Duration: 30 day, Sto p date: 10/17/18 17:08:00 CDT Notes: (Same as: Humulin R) Roll in palms of hands gently; Do not shake vigorous ly. WASTE: F/P - Black; E - Municipal Trash BinStable for 31 days at r oom temperature Expires in days from Date Start Date: 09/17/18 Stop Date: 09/22/18 Status: Discontinued insulin regular 100 units/mL human recombinant 3 unit, 0.03 mL, Route: SUB-Q, Drug form: SOLN, PRN, Dosing Weight 80.057, kg, P RN Abnormal Lab Result, Start date: 09/17/18 17:09:00 CDT, Duration: 30 day, Sto p date: 10/17/18 17:08:00 CDT Notes: (Same as: Humulin R) Roll in palms of hands gently; Do not shake vigorous ly. WASTE: F/P - Black; E - Municipal Trash BinStable for 31 days at r oom temperature Expires in days from Date Start Date: 09/17/18 Stop Date: 09/22/18 Status: Discontinued Lactated Ringers Injection IV (ANES) 1000 mL Route: IV, Total Volume: 1,000, Start date: 09/19/18 13:17:00 CDT, Stop date: 14:17:00 CDT Start Date: 09/19/18 Stop Date: 09/19/18 Status: Completed Lactated Ringers IV 1,000 mL 1,000 mL, Rate: 100 ml/hr, Infuse over: 10 hr, Route: IV, Dosing Weight 80.057 k g, Total Volume: 1,000, Start date: 09/17/18 17:05:00 CDT, Duration: 30 day, Sto p date: 10/17/18 17:04:00 CDT, 1.87, m2 Start Date: 09/17/18 Stop Date: 09/19/18 Status: Discontinued Lactated Ringers IV 1,000 mL 1,000 mL, Rate: 75 ml/hr, Infuse over: 13.3 hr, Route: IV, Dosing Weight 80.057 kg, Total Volume: 1,000, Start date: 09/19/18 15:30:00 CDT, Duration: 30 day, St op date: 10/19/18 15:29:00 CDT, 1.87, m2 Start Date: 09/19/18 Stop Date: 09/20/18 Status: Discontinued lidocaine (ANES) Route: IV, Drug form: INJ, ONCE, Stop date: 09/19/18 14:23:00 CDT Start Date: 09/19/18 Stop Date: 09/19/18 Status: Completed Lovenox 40 mg, 0.4 mL, Route: SUB-Q, Drug form: INJ, [id number], Dosing Weight 80.057, kg, Start date: 09/19/18 16:00:00 CDT, Duration: 30 day, Stop date: 10/18/18 16:00: 00 CDT Notes: (Same as: Lovenox) Start Date: 09/19/18 Stop Date: 09/22/18 Status: Discontinued magnesium citrate 1.745 g/30 mL oral liquid 300 ml, Route: PO, Drug Form: LIQ, Dosing Weight 80.057, kg, ONCE, Start date: 0 09/18/18 19:33:00 CDT, Stop date: 09/18/18 19:33:00 CDT Notes: (Same as: Citrate of Magnesia)Concentration: 1.745 gm / 30 mL Start Date: 09/18/18 Stop Date: 09/18/18 Status: Completed methocarbamol 500 mg, 1 tab, Route: PO, Drug form: TAB, QID, Dosing Weight 80.057, kg, Start d ate: 09/19/18 17:00:00 CDT, Duration: 30 day, Stop date: 10/19/18 13:00:00 CDT Notes: (Same as:Robaxin) Start Date: 09/19/18 Stop Date: 09/22/18 Status: Discontinued niCARdipine (ANES) + Sodium Chloride 0.9% IV (ANES) 90 mL Route: IV, Drug form: INJ, ONCE, Stop date: 09/19/18 15:25:00 CDT Start Date: 09/19/18 Stop Date: 09/19/18 Status: Completed Omnipaque 350mg/ml 100 mL, Route: IVP, Drug Form: SOLN, Dosing Weight 80.057, kg, ONCALL, STAT, Sta rt date: 09/18/18 1:42:00 CDT, Duration: 1 doses or times, Dose=2.2ml/kg, Max d [id number] -- "To be infused by Radiology Staff ONLY" Start Date: 09/18/18 Stop Date: 09/18/18 Status: Completed ondansetron (ANES) Route: IV, Drug form: INJ, ONCE, Stop date: 09/19/18 15:28:00 CDT Start Date: 09/19/18 Stop Date: 09/19/18 Status: Completed PARoxetine 20 mg, 2 tab, Route: PO, Drug form: TAB, Daily, Dosing Weight 80.057, kg, Start date: 09/20/18 10:00:00 CDT, Duration: 30 day, Stop date: 10/20/18 9:00:00 CDT Notes: (Same as: Paxil) Start Date: 09/20/18 Stop Date: 09/22/18 Status: Discontinued potassium chloride 10 mEq, Route: IVPB, Q1H, Dosing Weight 80.057, kg, Total Dose=60 meq, Start sudarshan e: 09/17/18 22:00:00 CDT, Duration: 6 doses or times, Stop date: 09/18/18 3:00:0 0 CDT, Peripheral Line Start Date: 09/17/18 Stop Date: 09/17/18 Status: Deleted potassium chloride 20 mEq, 100 mL, Route: IVPB, Drug form: INJ, Q2H, Start date: 09/18/18 0:00:00 C DT, Duration: 3 doses or times, Stop date: 09/18/18 4:00:00 CDT Notes: (Same as: KCL) Infuse no faster than 10 mEq/hr if given peripherally. Start Date: 09/18/18 Stop Date: 09/18/18 Status: Completed Premarin Vaginal 1 gm, Route: VAG, Bedtime, Drug form: CRM/A, Start date: 09/19/18 21:00:00 CDT, Duration: 30 day, Stop date: 10/18/18 21:00:00 CDT Start Date: 09/19/18 Stop Date: 09/22/18 Status: Discontinued propofol (ANES) Route: IV, Drug form: INJ, ONCE, Stop date: 09/19/18 14:23:00 CDT Start Date: 09/19/18 Stop Date: 09/19/18 Status: Completed rocuronium (ANES) Route: IV, Drug form: INJ, ONCE, Stop date: 09/19/18 14:23:00 CDT Start Date: 09/19/18 Stop Date: 09/19/18 Status: Completed Sodium Chloride 0.9% (titrate) 250 mL 250 mL, Rate: To prime line and flush remaining blood products., Dosing Weight 8 0.057, kg, Route: IV, Total Volume: 250, Start Date: 09/18/18 19:36:00 CDT, Dura tion: 30 day, Stop date: 10/18/18 19:35:00 CDT, Replace Every: 24 hr Start Date: 09/18/18 Stop Date: 09/19/18 Status: Discontinued sugammadex 200 mg, 2 mL, Route: IV, Drug form: SOLN, ONCALL, Start date: 09/19/18 16:09:00 CDT, Duration: 1 doses or times, Stop date: 09/19/18 16:09:00 CDT Notes: (Same as: Bridion) Start Date: 09/19/18 Stop Date: 09/22/18 Status: Discontinued sugammadex (ANES) Route: IV, Drug form: SOLN, ONCE, Stop date: 09/19/18 15:28:00 CDT Start Date: 09/19/18 Stop Date: 09/19/18 Status: Completed tramadol 100 mg, 2 tab, Route: PO, Drug form: TAB, Q6Hnow, Dosing Weight 80.057, kg, PRN Pain Score 7-10, Start date: 09/19/18 14:52:00 CDT, Duration: 30 day, Stop date: 10/19/18 14:51:00 CDT Notes: Not to exceed 400mg/day. (Same As: Ultram) Start Date: 09/19/18 Stop Date: 09/22/18 Status: Discontinued tramadol 50 mg, 1 tab, Route: PO, Drug form: TAB, Q6H, Dosing Weight 80.057, kg, PRN Pain Score 4-6, Start date: 09/19/18 14:52:00 CDT, Duration: 30 day, Stop date: 06/08 14:51:00 CDT Notes: Not to exceed 400mg/day. (Same As: Ultram) Start Date: 09/19/18 Stop Date: 09/22/18 Status: Discontinued tramadol 50 mg oral tablet 50 mg=1 tab, PO, Q6H, PRN Pain, X 10 day, # 40 tab, 0 Refill(s) Start Date: 09/21/18 Stop Date: 10/01/18 Status: Ordered vancomycin 1,200.855 mg, Route: IV, Drug form: INJ, Q12H, Dosing Weight 80.057, kg, Start d ate: 09/17/18 21:00:00 CDT, Duration: 2 day, Stop date: 09/19/18 9:00:00 CDT, Pe diatric Dosing, ABX Indication: Genital Tract Infection Start Date: 09/17/18 Stop Date: 09/17/18 Status: Deleted vancomycin + Sodium Chloride 0.9% IV 250 mL 750 mg, Route: IVPB, Drug form: INJ, [id number], Start date: 09/17/18 19:30:00 CDT, Duration: 2 day, Stop date: 09/19/18 7:30:00 CDT, ABX Indication: Genital Tract Infection Notes: TIME CRITICAL MEDICATION(Same As: Vancocin)Infusion rate< 1000 mg: infuse over 1 [id number] - 1500 mg: infuse over 1.5 hoursVancomycin FOR IV SET ONLY1501 - 2000 mg: infuse over 2 hours> 2001 mg: infuse over 2.5 hoursFor adult patients only: Round to nearest 250 mg per Medical Staff approval MEDICATION WASTE Product Size: 1000 mgProduct Wasted: ___ mg Start Date: 09/17/18 Stop Date: 09/19/18 Status: Completed Results 1 2 3 Most recent to oldest [Reference Range]: 8.1 K/CMM (09/18/18 11:43 AM) 9.5 K/CMM *HI* (09/17/18 6:21 PM) Neutrophils # [1.5-8.1 K/CMM] 1.2 K/CMM (09/18/18 11:43 AM) 1.1 K/CMM (09/17/18 6:21 PM) Lymphocytes # [1.0-5.5 K/CMM] 1.1 K/CMM *HI* (09/18/18 11:43 AM) 1.1 K/CMM *HI* (09/17/18 6:21 PM) Monocytes # [0.0-0.8 K/CMM] 0.1 K/CMM (09/18/18 11:43 AM) 0.1 K/CMM (09/17/18 6:21 PM) Eosinophils # [0.0-0.5 K/CMM] 77 mL/min/1.73m2 1 *NA* (09/22/18 3:50 AM) 76 mL/min/1.73m2 2 *NA* (09/21/18 4:41 AM) 86 mL/min/1.73m2 3 *NA* (09/20/18 2:53 AM) eGFR O POS *Unknown* (09/17/18 8:20 PM) ABO/Rh 0.7 (09/18/18 11:43 AM) 0.9 (09/17/18 6:21 PM) A/G Ratio [0.7-1.6] Negative (09/17/18 8:20 PM) Antibody Scrn 2.6 g/dL *LOW* (09/18/18 11:43 AM) 3.0 g/dL *LOW* (09/17/18 6:21 PM) Albumin Lvl [3.5-5.0 g/dL] 49 unit/L (09/18/18 11:43 AM) 56 unit/L (09/17/18 6:21 PM) Alk Phos [39-136 unit/L] 28 unit/L (09/18/18 11:43 AM) 35 unit/L (09/17/18 6:21 PM) ALT [0-65 unit/L] 9.3 mEq/L *LOW* (09/22/18 3:50 AM) 10.7 mEq/L (09/21/18 4:41 AM) 12.6 mEq/L (09/20/18 2:53 AM) AGAP [10.0-20.0 mEq/L] 22 unit/L (09/18/18 11:43 AM) 37 unit/L (09/17/18 6:21 PM) AST [0-37 unit/L] 12 (09/18/18 11:43 AM) 13 (09/17/18 6:21 PM) B/C Ratio [6-25] 0.4 % (09/18/18 11:43 AM) 0.2 % (09/17/18 6:21 PM) Basophils [0.0-1.0 %] 9 mg/dL (09/22/18 3:50 AM) 11 mg/dL (09/21/18 4:41 AM) 10 mg/dL (09/20/18 2:53 AM) BUN [7-22 mg/dL] 8.9 mg/dL (09/22/18 3:50 AM) 8.6 mg/dL (09/21/18 4:41 AM) 8.7 mg/dL (09/20/18 2:53 AM) Calcium Lvl [8.5-10.5 mg/dL] 111 mEq/L *HI* (09/22/18 3:50 AM) 107 mEq/L (09/21/18 4:41 AM) 107 mEq/L (09/20/18 2:53 AM) Chloride Lvl [95-109 mEq/L] 23 mEq/L *LOW* (09/22/18 3:50 AM) 26 mEq/L (09/21/18 4:41 AM) 23 mEq/L *LOW* (09/20/18 2:53 AM) CO2 [24-32 mEq/L] 0.76 mg/dL (09/22/18 3:50 AM) 0.77 mg/dL (09/21/18 4:41 AM) 0.67 mg/dL (09/20/18 2:53 AM) Creatinine Lvl [0.50-1.40 mg/dL] 1.2 % (09/18/18 11:43 AM) 1.1 % (09/17/18 6:21 PM) Eosinophils [0.0-4.0 %] 3.6 g/dL (09/18/18 11:43 AM) 3.5 g/dL (09/17/18 6:21 PM) Globulin [2.7-4.2 g/dL] 91 mg/dL (09/22/18 3:50 AM) 92 mg/dL (09/21/18 4:41 AM) 219 mg/dL *HI* (09/20/18 2:53 AM) Glucose Lvl [70-99 mg/dL] 31.9 % *LOW* (09/22/18 3:50 AM) 32.7 % *LOW* (09/21/18 4:41 AM) 35.8 % *LOW* (09/20/18 2:53 AM) Hct [36.0-48.0 %] 10.6 g/dL *LOW* (09/22/18 3:50 AM) 10.9 g/dL *LOW* (09/21/18 4:41 AM) 11.9 g/dL *LOW* (09/20/18 2:53 AM) Hgb [12.0-16.0 g/dL] 3.3 mEq/L *LOW* (09/22/18 3:50 AM) 3.7 mEq/L (09/21/18 4:41 AM) 3.6 mEq/L (09/20/18 2:53 AM) Potassium Lvl [3.5-5.1 mEq/L] 11.7 % *LOW* (09/18/18 11:43 AM) 9.0 % *LOW* (09/17/18 6:21 PM) Lymphocytes [20.0-40.0 %] 29.7 pg (09/22/18 3:50 AM) 29.6 pg (09/21/18 4:41 AM) 29.7 pg (09/20/18 2:53 AM) MCH [27.0-31.0 pg] 33.2 g/dL (09/22/18 3:50 AM) 33.2 g/dL (09/21/18 4:41 AM) 33.2 g/dL (09/20/18 2:53 AM) MCHC [32.0-36.0 g/dL] 89.5 fL (09/22/18 3:50 AM) 89.2 fL (09/21/18 4:41 AM) 89.6 fL (09/20/18 2:53 AM) MCV [80.0-98.0 fL] 10.3 % (09/18/18 11:43 AM) 9.5 % (09/17/18 6:21 PM) Monocytes [2.0-12.0 %] 8.4 fL (09/22/18 3:50 AM) 8.5 fL (09/21/18 4:41 AM) 8.1 fL (09/20/18 2:53 AM) MPV [7.4-10.4 fL] 140 mEq/L (09/22/18 3:50 AM) 140 mEq/L (09/21/18 4:41 AM) 139 mEq/L (09/20/18 2:53 AM) Sodium Lvl [135-145 mEq/L] 383 K/CMM (09/22/18 3:50 AM) 384 K/CMM (09/21/18 4:41 AM) 381 K/CMM (09/20/18 2:53 AM) Platelet [133-450 K/CMM] 76.4 % *HI* (09/18/18 11:43 AM) 80.2 % *HI* (09/17/18 6:21 PM) Segs [45.0-75.0 %] 6.2 g/dL *LOW* (09/18/18 11:43 AM) 6.5 g/dL (09/17/18 6:21 PM) Total Protein [6.4-8.4 g/dL] 3.57 M/CMM *LOW* (09/22/18 3:50 AM) 3.67 M/CMM *LOW* (09/21/18 4:41 AM) 3.99 M/CMM *LOW* (09/20/18 2:53 AM) RBC [4.20-5.40 M/CMM] 13.9 % (09/22/18 3:50 AM) 13.3 % (09/21/18 4:41 AM) 13.4 % (09/20/18 2:53 AM) RDW [11.5-14.5 %] 1.2 mg/dL (09/18/18 11:43 AM) 1.3 mg/dL (09/17/18 6:21 PM) Bili Total [0.2-1.3 mg/dL] 7.8 K/CMM (09/22/18 3:50 AM) 11.8 K/CMM *HI* (09/21/18 4:41 AM) 11.8 K/CMM *HI* (09/20/18 2:53 AM) WBC [3.7-10.4 K/CMM] 1Result Comment: The eGFR is calculated using [...] be mul tiplied by the estimated BMI. Microbiology Reports TEST: Culture: Urine STATUS: Auth (Verified) BODY SITE: SOURCE: Urine, Catheterized COLLECTED DATE/TIME: 09/17/18 8:20 PM FINAL REPORT No Growth Immunizations Given and Recorded Vaccine Date Status Refusal Reason pneumococcal 13-valent vaccine 09/22/18 Given influenza virus vaccine, inactivated1 04/02/18 Given influenza [...] Pneumovax 23: 02-23-09 ; Data migrated from [employer] on 12/25/2014. Procedures Procedure Date Related Diagnosis Body Site Status Bone density scan1, 2 08/28/18 Completed Mammogram - screening3, 4 08/28/18 Completed Diabetic Retinopathy Study 7 field 12/10/17 Completed stereoscopic fundus photography5 Colonoscopy6 03/30/16 Completed Endoscopy7 03/30/16 Completed Eye examination 11/18/13 Completed Hysterectomy1996 Completed Tonsillectomy Completed 11. Osteopenia of the [...] 3 years 7Barrett's esophagus Next 3 years 8vaginal Social History Social History Type Response Alcohol Current, Type Beer. Frequency: 1-2 times per year. Smoking Status Former smoker; Exposure to Tobacco Smoke None; Cigarette Smoking Last 365 Days No; Reg Smoking Cessation Counseling No; Stopped at age: 62; 1 entered on: 09/17/18 1QUIT 5 YEARS AGO Assessment and Plan Extracted from: Title: Clinical Document Author: Yudy Gonsalves Date: 09/21/18 Progress Note - Daily [facility] Completed: Friday, SEPTEMBER 21, 2018, 06:21 by Yudy Gonsalves MD RM: [id number] - 01, 3JPGALAVIGIDEON WILLIS DEL78y (: 1940) F Attending: Lidia Gutierrez MDPhone: Service: Colon & Rectal Surg Service Reason for Admission: POST OP INFECTION Working DRG: Code status: None Specified=FULL CODECurrent diet: Isolation: No Isolation/Standard Precautions Allergies: No Known Medication Allergies SUBJECTIVE pt doing well, pain well controlled, lavarez reg diet, no acute events overnight OBJECTIVE VitalsTmp(F)[id number] 09/21 04:2797.839200/487515--- 09/21 00:3298.012828/458739--- 09/20 20:2098.844642/729276--- 09/20 16:[id number]--- 09/20 11:1097.447199/313210--- 24 Hr Tmax: 98.1F (36.72c) at 09/21 00:32Vital Signs are the last 5 in the past 48 hours. DateWt(kg)Wt(lb)Ht(cm)Ht(in)Method 09/17 (initial) 80.06 176.13Measured 52.40 60.00Stated I&ORecordInOutBal 0324hr Tot [id number] 0224hr Tot 1848 2460 -612 Gen: NAD, AO X3 CV: RRR Pulm: unlabored breathing, CTAB Abdomen: NTTP, soft, ostomy intact with healthy pink tissue Pelvic: deferred, peripad dry. Ext: NTTP Medications (21) Active Scheduled Meds (12): 09/20/18 PARoxetine 20 mg PO Daily 09/19/18 acetaminophen 1,000 mg PO Q6Hnow 09/20/18 amLODIPine 10 mg PO Daily 09/19/18 cefepime 1 gm IVP Q8H 09/19/18 celecoxib (CeleBREX) 200 mg PO BID 09/19/18 conjugated estrogens topical (Premarin Vaginal) 1 gm VAG Bedtime 09/20/18 donepezil 10 mg PO Daily 09/19/18 enoxaparin (Lovenox) 40 mg SUB-Q [id number] 09/19/18 gabapentin 300 mg PO Q8H 09/20/18 hydrALAZINE 100 mg PO TID 09/19/18 methocarbamol 500 mg PO QID 09/19/18 metroNIDAZOLE (Flagyl) 500 mg IV ABXQ8H 200 ml/hr Unscheduled Meds (2): 09/17/18 pneumococcal 13-valent vaccine 0.5 mL IM ONCALL 09/19/18 sugammadex 200 mg IV ONCALL PRN Meds (7): 09/17/18 Dextrose 50% in Water IV (Dextrose 50% in Water (bolus) IV) 25 gm IVP PRN 09/17/18 Dextrose 50% in Water IV (Dextrose 50% Syringe) 6.25 gm IVP PRN 09/17/18 Insulin regular (insulin regular 100 units/mL human recombinant) 3 unit SUB-Q PRN 09/17/18 Insulin regular (insulin regular 100 units/mL human recombinant) 5 unit SUB-Q PRN 09/17/18 Insulin regular (insulin regular 100 units/mL human recombinant) 7 unit SUB-Q PRN 09/19/18 tramadol 50 mg PO Q6H 09/19/18 tramadol 100 mg PO Q6Hnow One Time Meds: None Continuous Infusions: None ASSESSMENT & PLAN 78 yo with PMH Alzheimer's, cHTN, T2DM is now s/p USLS, AP repair and cysto 2/2 pelvic organ prolapse on 09/09, currently POD#12, admitted for concerns for rectovaginal fistula vs bowel injury, now POD#2 s/p diverting loop ileostomy by colorectal surgery on 09/19/18 1. 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 T2DM - on metformin 500 mg BID prior to admit - on SSI insulin while in house, rec goal BG <200 - pt did not receive ISS overnight despite BS <200/ 3. cHTN - meds currently held - BPs mildly elevated Dispo: appreciate management by colorectal, tool specialist will continue to follow. Yudy Gonsalves Resident Physician | PGY2 Department of Obstetrics, Gynecology & Reproductive Sciences Addendum pt doing well, tolerating regular diet , no pain no acute issues by O/E : afebrile , vitals stable. Labs stable LUIS MANUEL Lee : soft , good , BS, NT, ND , no CVA tenderness, ostomy site clean draining well, Joslyn DHALIWAL incisions clean and dry on PV ;Premarin cream applied , no discharge, no bleeding, incision intact 09/21/2018 : voiding well , feels empty after voids , clear urine on voiding , urine culture : no 12:40 growth Surgical findings & Post op care discussed in details Encourage ambulation , pt on Lovenox Pt on IV antibiotics Pt clinically stable All questions answered Discharge per Colorectal recommendations [employer] Consultant will follow up Extracted from: Title: APMS Consult Note Author: Rickey Enriquez MD Date: 09/20/18 Basic Information Referral source Reason for consultation: Complex Acute Pain History of Present Illness 78 year old woman who underwent surgery for cystocele 09/[address] Lee's office for munoz catheter removal. At the time she was noted to have foul smelling drainage from the vagina for 2 days. She was subsequently admitted and started on antibiotics. 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 Went to OR on 09/19 for laparoscopic creation of ileostomy. APMS following for perioperative QL blocks. Histories Past Medical History: No active or resolved past medical history items have been selected or recorded. Family History: Hypertension Mother Procedure history: Mammogram - screening ([id number]) on 08/28/2018 at 78 Years. Comments: 08/28/2018 20:57 - Padmaja Garcia MD There is no mammographic evidence of malignancy. A 1 year screening mammogram is recommended.(08/29/2019) 08/22/2017 21:10 - Padmaja Garcia MD There is no mammographic evidence of malignancy. A 1 year screening mammogram is recommended. Bone density scan ([id number]) on 08/28/2018 at 78 Years. Comments: 08/28/2018 21:00 - Padmaja Garcia MD 1. Osteopenia of the left femoral neck. 2. Normal bone mineral density of the total left hip. 3. Normal bone mineral density of the lumbar spine. 08/13/2016 07:49 Padmaja Holloway MD Osteopenia left femoral neck Diabetic Retinopathy Study 7 field stereoscopic fundus photography ([id number]) on 12/10/2017 at 77 Years. Comments: 12/11/2017 14:Padmaja Hernandez MD No DRAnand Ratliff Colonoscopy ([id number]) on 03/30/2016 at 76 Years. Comments: 05/14/2016 18:Padmaja Hitchcock MD s/p polyectomy Next 3 years Endoscopy ([id number]) on 03/30/2016 at 76 Years. Comments: 05/14/2016 18:Padmaja Hitchcock MD Loaiza's esophagus Next 3 years Eye examination ([id number]) on 11/18/2013 at 73 Years. Hysterectomy ([id number]) in 1996 at 57 Years. Comments: 09/18/2018 19:44 - Lidia Gutierrez MD vaginal Tonsillectomy ([id number]). Social History Social & Psychosocial Habits Alcohol 08/23/2018 Use: Current Type: Beer Frequency: 1-2 times per year Tobacco 09/17/2018 Use: Former smoker Stopped at age: 62 Years Exposure to Tobacco Smoke None Cigarette Smoking Last 365 Days No Reg Smoking Cessation Counseling No Comment: QUIT 5 YEARS AGO - 08/23/2018 09:26 - Suki Winters RN. Health Status Allergies: Allergies (1) ActiveReaction No Known Medication AllergiesNone Documented Current medications: (Selected) Inpatient Medications Ordered CeleBREX: 200 mg, 1 cap, PO, BID Dextrose 50% Syringe: 6.25 gm, 12.5 mL, IVP, PRN, PRN: Abnormal Lab Result Dextrose 50% in Water (bolus) IV: 25 gm, 50 mL, IVP, PRN, PRN: Abnormal Lab Result Flagyl: 500 mg, 100 mL, 200 ml/hr, IV, ABXQ8H Lovenox: 40 mg, 0.4 mL, SUB-Q, [id number] PARoxetine: 20 mg, 2 tab, PO, Daily Premarin Vaginal: 1 gm, VAG, Bedtime acetaminophen: 1,000 mg, 2 tab, PO, Q6Hnow amLODIPine: 10 mg, 1 tab, PO, Daily cefepime: 1 gm, IVP, Q8H donepezil: 10 mg, 2 tab, PO, Daily gabapentin: 300 mg, 1 cap, PO, Q8H hydrALAZINE: 100 mg, 2 tab, PO, TID insulin regular 100 units/mL human recombinant: 3 unit, 0.03 mL, SUB-Q, PRN, PRN: Abnormal Lab Result insulin regular 100 units/mL human recombinant: 5 unit, 0.05 mL, SUB-Q, PRN, PRN: Abnormal Lab Result insulin regular 100 units/mL human recombinant: 7 unit, 0.07 mL, SUB-Q, PRN, PRN: Abnormal Lab Result methocarbamol: 500 mg, 1 tab, PO, QID pneumococcal 13-valent vaccine: 0.5 mL, IM, ONCALL sugammadex: 200 mg, 2 mL, IV, ONCALL tramadol: 100 mg, 2 tab, PO, Q6Hnow, PRN: Pain Score 7-10 tramadol: 50 mg, 1 tab, PO, Q6H, PRN: Pain Score 4-6 Pending Complete Flagyl: 500 mg, 100 mL, 200 ml/hr, IVPB, ABXQ8H Prescriptions Suspended PARoxetine 20 mg oral tablet: 1 tab, PO, Daily, 90 tab, 1 Refill(s) Pyridium 100 mg oral tablet: 100 mg, 1 tab, PO, PRN, PRN: Dysuria, 30 tab, 0 Refill(s) amLODIPine 10 mg oral tablet: 10 mg, 1 tab, PO, Daily, 90 tab, 1 Refill(s) atorvastatin 10 mg oral tablet: See Instructions, TAKE 1 TABLET AT BEDTIME, 90 tab, 1 Refill(s) calcium-vitamin D 600 mg-400 intl units oral tablet: 1 tab, PO, BID, for 90 day, 180 tab, 1 Refill(s) docusate sodium 100 mg oral capsule: 100 mg, 1 cap, PO, BID, for 14 day, PRN: Constipation, 28 cap, 1 Refill(s) donepezil 10 mg oral tablet: See Instructions, TAKE 1 TABLET EVERY DAY, 90 tab, 1 Refill(s) ferrous sulfate 325 mg oral enteric coated tablet: 325 mg, 1 tab, PO, BID, give with orange juice, 60 tab, 3 Refill(s) hydrALAZINE 100 mg oral tablet: 100 mg, 1 tab, PO, TID, for 90 day, 270 tab, 1 Refill(s) hydrochlorothiazide-irbesartan 12.5 mg-300 mg oral tablet: See Instructions, TAKE 1 TABLET BY MOUTH EVERY DAY, 90 tab, 1 Refill(s) labetalol 200 mg oral tablet: See Instructions, TAKE 1 TABLET BY MOUTH TWICE A DAY, 180 tab, 1 Refill(s) meclizine 25 mg oral tablet: 25 mg, 1 tab, PO, Daily, for 20 day, as needed for vertigo, PRN: for dizziness, 30 tab, 0 Refill(s) metFORMIN 500 mg oral tablet: 500 mg, 1 tab, PO, Daily, for 90 day, 90 tab, 1 Refill(s) pantoprazole 40 mg oral enteric coated tablet: See Instructions, TAKE 1 TABLET EVERY DAY, 90 tab, 1 Refill(s) simethicone 80 mg oral tablet: 80 mg, 1 tab, PO, TID-After Meals, 30 tab, 0 Refill(s) tolterodine 4 mg oral capsule, extended release: 1 cap, PO, Daily, 90 tab, 1 Refill(s) Problem list: All Problems (Selected) Loaiza's esophagus / SNOMED CT [id number] / Confirmed Benign essential hypertension / SNOMED CT 0751319 / Confirmed Data migrated from [employer] on 10/20/14. Data migrated from [employer] on 10/20/14. Body mass index 30+ - obesity / SNOMED CT [id number] Data migrated from [employer] on 10/20/14. Data migrated from [employer] on 10/20/14. Dementia / SNOMED CT 19720576 / Confirmed Data migrated from [employer] on 10/20/14. Data migrated from [employer] on 10/20/14. Depression / SNOMED CT 25935987 / Confirmed Mixed hyperlipidemia / SNOMED CT 974666778 / Confirmed Osteopenia / SNOMED CT 511289096 / Confirmed Type 2 diabetes mellitus / SNOMED CT 723463640 / Confirmed Data migrated from [employer] on 10/20/14. Data migrated from [employer] on 10/20/14. UI (urinary incontinence) / SNOMED CT 3514701421 / Confirmed, Active Problems (9) Loaiza's esophagus Benign essential hypertension Body mass index 30+ - obesity Dementia Depression Mixed hyperlipidemia Osteopenia Type 2 diabetes mellitus UI (urinary incontinence) Review of Systems Constitutional Cardiovascular Ear/Nose/Mouth/Throat Respiratory Gastrointestinal Musculoskeletal Neurologic Psychiatric Endocrine Hematology/Lymphatics Physical Examination VS/Measurements Vital Signs (last 24 hrs) Last Charted Temp Oral97.6 DegF (SEPTEMBER 20 11:10) Heart Rate Lgzxutzbjn02 bpm (SEPTEMBER 20 11:10) Resp Rate 18 BRMIN (SEPTEMBER 20 11:10) OTC828 mmHg (SEPTEMBER 20 11:10) DBP61 mmHg (SEPTEMBER 20 11:10) IlV304 % (SEPTEMBER 20:) General: Alert and oriented, No acute distress. Eye: Extraocular movements are intact. HENT: Normocephalic. Respiratory: Respirations are non-labored, Symmetrical chest wall expansion. Cardiovascular: Normal rate, Regular rhythm. Gastrointestinal: Soft, Non-tender, Non-distended. Musculoskeletal Normal range of motion. Normal strength. Cognition and Speech: Oriented, Speech clear and coherent. Psychiatric: Cooperative, Appropriate mood & affect. Review / Management Results review: Labs (Last four charted values) WBC H 11.8(SEPTEMBER 20)H 10.5(SEPTEMBER 18)H 11.9(SEP 17) Hgb L 11.9(SEPTEMBER 20)L 10.0(SEPTEMBER 18)L 10.1(SEP 17) Hct L 35.8(SEPTEMBER 20)L 29.8(SEPTEMBER 18)L 30.2(SEP 17) Plt 381(SEPTEMBER 20)307(SEPTEMBER 18)302(SEP 17) Na 139(SEPTEMBER 20)139(SEPTEMBER 18)137(SEP 17) K 3.6(SEPTEMBER 20)L 3.2(SEPTEMBER 18)C 3.0(SEP 17) CO2 L 23(SEPTEMBER 20)26(SEPTEMBER 18)28(SEP 17) Cl 107(SEPTEMBER 20)103(SEPTEMBER 18)98(SEP 17) Cr 0.67(SEPTEMBER 20)0.59(SEPTEMBER 18)1.01(SEP 17) BUN 10(SEPTEMBER 20)7(SEPTEMBER 18)13(SEP 17) Glucose Random H 219(SEPTEMBER 20)97(SEPTEMBER 18)H 106(SEP 17) Ca 8.7(SEPTEMBER 20)L 8.1(SEPTEMBER 18)8.8(SEP 17). Chest x-ray results ECG interpretation Impression and Plan Diagnosis Orders Education and Follow-up: Counseled: Regarding treatment, Regarding medications. 78F found to have abdominal abscess after vaginal vault suspension, anterior and posterior repair on 09/09, now s/p laparoscopic creation of ileostomy and perioperative QL blocks. - Patient reports pain is well-controlled at this time, rated 2/10. - Counseled patient to continue taking her pain medications as to control pain better when her block wears off. - Recommend continue multimodal pain regimen including tylenol, gabapentin, methocarbamol, celebrex, and PRN oxycodone. - APMS signing off at this time, thank you for this consult Addendum Teaching Addendum: by I saw and personally examined the patient and discussed the plan of care with the [place] resident. I was physically present for the mcleod portions of the procedure. Marie DHALIWAL on 09/20/2018 14:13 Extracted from: Title: Clinical Document Author: Joslyn Lee MD Date: 09/19/[address] Gutierrez. EUA done Pelvic exam revealed fistula to the anterior vaginal wall 2-3 cms below the urethra .Ant vaginal wall near the fistula looked very inflamed , yellow brown from contamination . Sutures intact . Cuff was intact , no drainage from cuff. Rectal exam completely normal ,no Recto vaginal fistula Small perineorrhaphy /distal rectocele repair intact Munoz inserted at end of procedure with clear urine Rest of surgery by [facility] rectal Extracted from: Title: Clinical Document Author: Joslyn Lee MD Date: 09/17/18 R2 History and Physical CC: concerns for fistula History of Present Illness: 78 yo with PMH Alzheimer's, cHTN, T2DM is now sp USLS, AP repair and cysto 2/2 pelvic organ prolapse on 09/09 who presents as a direct admit for fistula vs bowel injury. Pt was seen in Dr. Lee's office for post op check, where she was noted to have 'dark brown, foul smelling discharge' in vaginal vault concerning for rectovaginal fistula, and was admitted for further evaluation. Pt reports she had a normal postop course until 2 days ago where she felt made a bowel movement and had continued brown discharge "coming down" even after she made a bowel movement. Says that it is foul smelling and appears like feces. She continually has to wear diapers. Denies fevers or chills at home. 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 Sp LILY h/o USLS, AP repair and cyst on 09/09 Allergies: NKDA Current Meds: Atorvastatin Calcium 10 [...] History: Alzheimer's, cHTN, T2DM Surgical History: LILY, BSO, USLS, A&P repair Family History: noncontributory Social History: negx3 Vitals: PE: DateWt(kg)Wt(lb)Ht(cm)Ht(in)MethodBMIBSA 09/17 (initial) 80.06 176.13Measured 34.51.84 52.40 60.00Stated Gen: awake, A&Ox3 Resp: no acute distress Abd: soft, nontender Pelvic: feces-like material on the perineum; speculum placed and brown discharge that appears like feces seen in the vaginal vault; unable to visualize the vaginal cuff; on digital exam, no defect is appreciated Labs: pending Imaging pending Assessment/Plan: 78 yo with PMH Alzheimer's, cHTN, T2DM is now sp USLS, AP repair and cysto 2/2 pelvic organ prolapse on 09/09, currently POD#8, admitted for concerns for rectovaginal fistula vs bowel injury. 1. 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 T2DM - on metformin 500 mg BID - will be for q4h ISS while NPO 3. cHTN - on hydralazine 50 mg BID, labetalol 200 mg daily, ordered in house Dispo: Admit for workup for postop bowel injury vs fistula. Tram Romero, PGY-2 R4 addendum I have seen the above patient with Dr. Romero. Agree with the above H&P (edited by me). In brief, 78 yo with PMH Alzheimer's, cHTN, T2DM is now sp USLS, AP repair and cysto 2/2 pelvic organ prolapse on 09/09, currently POD#8, admitted for concerns for rectovaginal fistula vs bowel injury. Highly suspect fistula or injury given copious feces on exam. General surgery consulted and appreciate their recommendations. Discussed with Dr. Lee. Danika Saldaña MD PGY-4 Addendum Pt feeling ok , no acute issues , denies any new complaints by O/E afebrile vitals stable LUIS MANUEL Lee: soft , good BS , NT, ND, no CVA tenderness Joslyn DHALIWAL Awaiting CT abd /pelvis on Surgery consulted 09/17/2018 Plan discussed again 19:13 All questions answered Will follow up
--- OUTSIDE RECORDS SUMMARY | 2018-10-04 16:27 | XMS REPORT | Summary of Care ---
Author Author Yuly Oropeza M.A. Unknown Address Unknown Phone Unavailable Care Team Providers Care Clay Digger Name Role Phone NIKOLAY Macario, MURTAZA Unavailable Unavailable KELSEA DHALIWAL, WILEY Giron Unavailable Unavailable NIKOLAY DHALIWAL, MURTAZA Unavailable Unavailable BRANDY DHALIWAL VT, JAYY Cohudhury Unavailable Unavailable CALLIE DHALIWAL, BRITT Unavailable Unavailable SOLITARIO DHALIWAL, DOLORES Gao Unavailable Unavailable MARY DHALIWAL VT, ARIEL Unavailable Unavailable Unavailable Unavailable Functional Status Name Dates Details Functional status health issues are not documented Status: Name Dates Details Cognitive status health issues are not documented Status: Problems Name Dates Details Frequency of urination (788.41, R35.0) Status: Active Urinary tract infection (599.0, N39.0) Status: Active Hormone replacement therapy (HRT) (V07.4, Z79.890) Status: Active Urge incontinence of urine (788.31, N39.41) Status: Active Microscopic hematuria (599.72, R31.29) Status: Active Venereal disease screening (V74.5, Z11.3) Status: Active Fitting and adjustment of pessary (V53.99, Z46.89) Status: Active Effective bowel preparation for surgery Status: Active Preoperative clearance (V72.84, Z01.818) Status: Active Procedure indicated Status: Active Preop examination (V72.84, Z01.818) Status: Active Postop check (V67.00, Z09) Status: Active Medications Name Dates Details Ibuprofen TABS Active Diclofenac Potassium TABS * Refills: 0 Active Ferrous Sulfate TABS * Refills: 0 Active Macrodantin 50 MG Oral Capsule * Refills: 0 Active Allergies and Adverse Reactions Name Dates Details No Known Drug Allergies (Allergy) Status: Active Past Medical History Name Dates Details History of Alzheimers disease (331.0, G30.9) Status: Resolved History of Loaiza's esophagus (V12.79, Z87.19) Status: Resolved History of dementia (V11.8, Z86.59) Status: Resolved History of Essential hypertension, benign (401.1, I10) Status: Resolved History of hyperlipidemia (V12.29, Z86.39) Status: Resolved History of osteopenia (V13.59, Z87.39) Status: Resolved History of GENIA (stress urinary incontinence, female) (625.6, N39.3) Status: Resolved History of type 2 diabetes mellitus (V12.29, Z86.39) Status: Resolved Procedures Procedure Dates Details [QLH] CBC (INCLUDES DIFF/PLT) Date: 22-Aug-2018 [QLH] CMP W/EGFR Date: 22-Aug-2018 [Q] HIV 1/2 EIA AB SCREEN Date: 22-Aug-2018 [QL] HEPATITIS PANEL Date: 22-Aug-2018 [QL] HEMOGLOBIN A1c Date: 22-Aug-2018 [place] Renal [id number] Date: 23-Aug-2018 History of Hysterectomy abdominal Completed History of Tonsillectomy Completed History of Colonoscopy Completed History of Endoscopy Completed Immunization Name Dates Details Immunizations not documented Social History Name Dates Details - Status: Name Dates Details Former smoker Vital Signs Date Test Result Details [id number] BP Systolic 150 mm[Hg] Status: Comments: Location: RUE; Position: Sitting BP Diastolic 72 mm[Hg] Status: Comments: Location: RUE; Position: Sitting Height 60 in Status: Weight 156 lb Status: Body Mass Index Calculated 30.47 kg/m2 Status: Body Surface Area Calculated 1.68 m2 Status: Temperature 98.4 f Status: Comments: Method: Oral Heart Rate 102 /min Status: [id number]:17 BP Systolic 119 mm[Hg] Status: Comments: Location: RUE; Position: Sitting BP Diastolic 62 mm[Hg] Status: Comments: Location: RUE; Position: Sitting Height 60 in Status: Weight 178 lb Status: Body Mass Index Calculated 34.76 kg/m2 Status: Body Surface Area Calculated 1.78 m2 Status: Temperature 98.7 f Status: Comments: Method: Oral Heart Rate 69 /min Status: Results Date Description Value Details [id number] [O] Urine Dipstick (In Office) Glucose 250 (Abnormal) LEUKOCYTES trace (Below low threshold) NITRITE negative (Normal) UROBILINOGEN 0.2 (Normal) PROTEIN >=300 (Abnormal) pH 5.5 (Normal) URINE BLOOD negative (Normal) SPECIFIC GRAVITY >=1.030 (Abnormal) KETONES 15 (Abnormal) BILIRUBIN moderate (Abnormal) 06-[id number]:17 [O] Urine Dipstick (In Office) Glucose Negative (Normal) LEUKOCYTES Large (Abnormal) NITRITE negative (Normal) PROTEIN 100 (Abnormal) URINE BLOOD Small (Abnormal) KETONES Trace (Abnormal) Plan of Care Name Dates Details Planned Observations Planned Goals not documented Planned Encounters Appointment; MURTAZA LINK M.D. On: 17-Oct-2018 13:00 Appointment; DOLORES JEREZ On: 22-Oct-2018 14:30 Appointment; BRITT LEDESMA M.D. On: 22-Aug-2019 10:15 Instructions Name Dates Details Instructions not documented Encounters Appointment; ADRIAN HOFFMAN M.D. Encounter Diagnosis: Problem not documented On: 27-Nov-2017 10:15 Appointment; GENERAL, AUDIOLOGY- Encounter Diagnosis: Problem not documented On: 07-Dec-2017 14:00 Appointment; MURTAZA LINK M.D. Encounter Diagnosis: Problem not documented On: 08-May-2018 10:00 Appointment; MURTAZA LINK M.D. Encounter Diagnosis: Problem not documented On: 13-Jun-2018 10:30 Appointment; REEMA MENA M.D. Encounter Diagnosis: Problem not documented On: 25-Jun-2018 11:20 Appointment; MURTAZA LINK M.D. Encounter Diagnosis: Problem not documented On: 27-Jun-2018 10:30 Appointment; MURTAZA LINK M.D. Encounter Diagnosis: Problem not documented On: 04-Jul-2018 13:30 Appointment; MURTAZA LIKN M.D. Encounter Diagnosis: Problem not documented On: 15-Aug-2018 8:45 Appointment; MURTAZA LINK M.D. Encounter Diagnosis: Problem not documented On: 15-Aug-2018 14:30 Appointment; MURTAZA LINK M.D. Encounter Diagnosis: Problem not documented On: 22-Aug-2018 11:15 Appointment; BRITT LEDESMA M.D. Encounter Diagnosis: Problem not documented On: 23-Aug-2018 10:00 Appointment; MURTAZA LINK M.D. Encounter Diagnosis: Problem not documented On: 29-Aug-2018 14:00 Appointment; MURTAZA LINK M.D. Encounter Diagnosis: Problem not documented On: 09-Sep-2018 7:30 Appointment; MURTAZA LINK M.D. Encounter Diagnosis: Problem not documented On: 17-Sep-2018 13:30 Appointment; DOLORES JEREZ Encounter Diagnosis: Problem not documented On: 18-Sep-2018 11:30 Appointment; MURTAZA LINK M.D. Encounter Diagnosis: Problem not documented On: 18-Sep-2018 13:00 Appointment; DOLORES JEREZ Encounter Diagnosis: Problem not documented On: 19-Sep-2018 13:00 Appointment; DOLORES JEERZ Encounter Diagnosis: Problem not documented On: 26-Sep-2018 13:45 Appointment; MURTAZA LINK M.D. Encounter Diagnosis: Problem not documented On: 03-Oct-2018 13:30
--- OUTSIDE RECORDS SUMMARY | 2018-10-04 16:27 | XMS REPORT | Summary of Care ---
Author Author [facility] Organization [facility] Address Unknown Phone Unavailable Encounter [facility] Valente(FIN) [id number] Date(s): 12/31/15 - 12/31/15 [facility] [address] [place] [address]- Discharge Disposition: Home or Self Care Attending Physician: Padmaja Garcia MD Referring Physician: Padmaja Garcia MD Vital Signs No data available for this section Problem List Condition Effective Dates Status Health Status Informant Alzheimer's Active disease(Confirmed) Benign essential 06/02/14 Active hypertension1, 2 Body mass index 30+ 06/02/14 Active - obesity3, 4 Dementia5, 6 06/19/14 Active Hyperlipidemia7, 8 06/02/14 Active Osteopenia(Confirmed Active ) Type 2 diabetes 06/02/14 Active mellitus9, 10 UI (urinary Active incontinence)(Confir med) 1Data [...] and Recorded Vaccine Date Status Refusal Reason diphtheria/pertussis, acel/tetanus adult 12/16/15 Given influenza virus vaccine, inactivated 04/29/15 Given pneumococcal 23-valent vaccine1 06/02/14 Given 1Result Comment: pneumovax 23 [cvx33]. Migrated from OBS VIS: Pneumovax 23: 02-23-09 ; Data migrated from [employer] on 12/25/2014. Procedures Procedure Date Related Diagnosis Body Site Bone density scan1 06/02/14 Mammogram - screening 06/02/14 Eye examination 11/18/13 Hysterectomy 1997 Tonsillectomy 1osteopenia Social History Social History Type Response Alcohol Current, Type Beer. Frequency: 1-2 times per year. Smoking Status Former smoker; Stopped at age: 62; Exposure to Tobacco Smoke None; Cigarette Smoking Last 365 Days No; Reg Smoking Cessation Counseling No Assessment and Plan No data available for this section
--- OUTSIDE RECORDS SUMMARY | 2018-10-04 16:27 | XMS REPORT | Summary of Care ---
Author Author [facility] Organization [facility] Address Unknown Phone Unavailable Encounter [facility] Valente(FIN) [id number] Date(s): 08/11/16 - 08/11/16 [facility] [address] [place] [address]- Discharge Disposition: Home or Self Care Attending [...] Pneumovax 23: 02-23-09 ; Data migrated from [employer] on 12/25/2014. Procedures Procedure Date Related Diagnosis Body Site Bone density scan1 08/11/16 Colonoscopy2 03/30/16 Endoscopy3 03/30/16 Mammogram - screening 12/31/15 Eye examination 11/18/13 Hysterectomy 1996 Tonsillectomy 1Osteopenia left femoral neck 2s/p polyectomy Next [...]
--- OUTSIDE RECORDS SUMMARY | 2018-10-04 16:27 | XMS REPORT ---
Author Author [facility] Address Unknown Phone Unavailable Care Team Providers Care Biotechnician Name Role Phone Unavailable Unavailable Problems This patient has no known problems. Allergies, Adverse Reactions, Alerts This patient has no known allergies or adverse reactions. Medications This patient has no known medications. Encounters Start Date/Time End Date/Time Encounter Type Admission Type Attending [facility] Facility Care Department Encounter ID 2018-09-17 15:57:00 Inpatient U [facility] [id number] 2018-09-09 05:19:56 Outpatient [facility] [id number] 2018-08-23 18:27:29 [place] [facility] [id number] 2018-09-09 12:02:00 2018-09-09 12:02:00 Outpatient [facility] [id number] 2018-08-28 10:43:00 2018-08-28 10:43:00 Outpatient [facility] [id number] 2018-08-19 12:15:00 2018-08-19 12:15:00 Outpatient [facility] [id number]
--- OUTSIDE RECORDS SUMMARY | 2018-10-04 16:27 | XMS REPORT | Summary of Care ---
Author Author [facility] Organization [facility] Address Unknown Phone Unavailable Encounter [facility](FIN) [id number] Date(s): 12/13/17 - 12/14/17 [facility] [address], [address] [place] [address]- [phone] Vital Signs No data available for this [...] Substance Reaction Severity Status NKDA Active Medications PARoxetine 20 mg oral tablet 20 mg=1 tab, PO, Daily, # 90 tab, 0 Refill(s), Pharmacy: [facility]/pharmacy #[id number] Start Date: 12/13/17 Stop Date: 12/24/17 Status: Discontinued Results No data available for [...] Pneumovax 23: 02-23-09 ; Data migrated from [employer] on 12/25/2014. Procedures Procedure Date Related Diagnosis [...]
[2018-10-04 16:51] LABS: BASOPHILS % 0.4 % (0.0-1.0); EOSINOPHILS # (AUTO) 0.1 (0.0-0.4); EOSINOPHILS % 0.5 % (0.0-6.0); HEMATOCRIT 34.5 % (34.2-44.1); HEMOGLOBIN 11.6 g/dL (12.0-16.0); LYMPHOCYTES # (AUTO) 1.1 (1.0-3.2); LYMPHOCYTES % 11.1 % (18.0-39.1); MEAN CORPUSCULAR HEMOGLOBIN 29.6 pg (28-32); MEAN CORPUSCULAR HGB CONC 33.6 g/dL (31-35); MONOCYTES # (AUTO) 0.6 (0.2-0.8); MONOCYTES % 6.2 % (4.4-11.3); NEUTROPHILS # (AUTO) 8.2 (2.1-6.9); NEUTROPHILS % 81.3 % (38.7-80.0); PLATELET COUNT 282 x10e3/uL (140-360); RED BLOOD COUNT 3.92 x10e6/uL (3.6-5.1); RED CELL DISTRIBUTION WIDTH 14.2 % (11.7-14.4)
--- NOTE | 2018-10-04 17:13 | Diagnostic Imaging Report ---
ADDENDUM #1 I have reviewed the images and agree with findings in preliminary report. Signed by: Dr. Hafsa Escobedo M.D. on 10/04/2018 9:16 PM ORIGINAL REPORT Exam: Noncontrast Head CT History: Syncope, 3 falls today, 78-year-old female Comparison studies: None Technique: Axial images were obtained from the skull base to the vertex. Coronal and sagittal reconstructions obtained from the axial data. Dose modulation, iterative reconstruction, and/or weight based adjustment of the mA/kV was utilized to reduce the radiation dose to as low as reasonably achievable. Findings: Scalp/skull: No abnormalities. No fractures, blastic or lytic lesions. Extra-axial spaces: There is a partially calcified 3.6 x 1.6 cm extra-axial lesion overlying the left middle frontal gyrus. There is mild mass effect on the underlying frontal lobe without evidence of vasogenic edema or parenchymal invasion, although evaluation is limited on a noncontrast head CT.. Brain sulci: Mildly prominent. Ventricles: Normal in size and configuration. No hydrocephalus. Parenchyma: No abnormal densities. No masses, hemorrhage, acute or chronic cortical vascular insults. Sellar/suprasellar region: No abnormalities Craniocervical junction: Patent foramen magnum. No Chiari one malformation. IMPRESSION: No acute abnormalities. 3.6 cm extra-axial, partially calcified mass lesion with a working diagnosis of meningioma. If the patient has a history of malignancy then dural based metastasis may be considered although this is less likely. Comparison with prior studies if available or obtaining a contrast enhanced brain MRI is recommended for further characterization. Chronic findings: Mild generalized volume loss. Report dictated by neuroradiology fellow. Final read to follow. Signed by: Kuldeep Moran MD on 10/04/2018 5:09 PM
[2018-10-04 17:14] LABS: ALANINE AMINOTRANSFERASE 24 IU/L (0-55); ALBUMIN 4.2 g/dL (3.5-5.0); ALBUMIN/GLOBULIN RATIO 1.4 (0.8-2.0); ALKALINE PHOSPHATASE 69 IU/L (40-150); ANION GAP 18.8 mmol/L (8-16); BLOOD UREA NITROGEN 47 mg/dL (7-26); BUN/CREATININE RATIO 23 (6-25); CALCIUM 10.8 mg/dL (8.4-10.2); CARBON DIOXIDE 15 mmol/L (22-29); CHLORIDE 101 mmol/L (98-107); CREATINE KINASE 70 IU/L (29-168); CREATININE, SERUM 2.04 mg/dL (0.57-1.11); EST GLOMERULAR FILTRATION RATE 24 ML/MIN (60-); GLUCOSE 189 mg/dL (74-118); SODIUM 129 mmol/L (136-145)
[2018-10-04 17:19] LABS: POTASSIUM 5.8 mmol/L (3.5-5.1)
[2018-10-04] MEDS ORDERED: SOD POLYSTYRENE SULFONATE SUSP 15 GM/60 ML BTL PO ONE ×2 (17:30→18:30)
[2018-10-04] MEDS ORDERED: DIOVAN320 MG PO (18:21)
[2018-10-04] MEDS ORDERED: METFORMIN HCL500 MG PO (18:21)
[2018-10-04] MEDS ORDERED: HYDRALAZINE HC100 MG PO (18:21)
[2018-10-04] MEDS ORDERED: AMLODIPINE BESY10 MG PO (18:21)
[2018-10-04] MEDS ORDERED: PAROXETINE HCL20 MG PO (18:21)
[2018-10-04] MEDS ORDERED: DONEPEZIL HCL10 MG PO (18:21)
[2018-10-04] MEDS ORDERED: PANTOPRAZOLE SO40 MG PO (18:21)
[2018-10-04] MEDS ORDERED: LABETALOL HCL200 MG PO (18:21)
[2018-10-04] MEDS ORDERED: DEXTROSE 50% SYRINGE 50 ML IV ONE (18:30)
[2018-10-04] MEDS ORDERED: INSULIN REGULAR, HUMAN 100 UNIT/1 ML 3ML VIAL IV ONE (18:30)
[2018-10-04 19:12] VITALS: BP 106/51
--- NOTE | 2018-10-04 19:12 | NUR ---
Received patient from ER per stretcher, alert and oriented, abrasion to the nose noted, s/p fall at home, colostomy noted to the RLQ draining yellow liquid output. Placed the patient on bed comfortably. Call light within easy reach, bed in low position and locked, bed alarm activated, advised to call for assistance anytime when needed. Will closely monitor
[2018-10-04 20:00] VITALS: BP 106/51
[2018-10-04] MEDS: SODIUM CHLORIDE 0.9% 1000ML 1,000 ML IV SCH (20:28)
[2018-10-04 21:00] VITALS: BP 106/51
--- NOTE | 2018-10-04 21:20 | NUR ---
leaking noted from the colostomy site, stoma is pink, surrounding skin is red and painful when touch per patient, skin protectant and paste applied to the surrounding area, new wafer and bag applied. Will continue to monitor
[2018-10-05] VITALS (8 sets, daily range): BP systolic 93–157; BP diastolic 47–70
[2018-10-05 02:18] LABS: CREATINE KINASE 84 IU/L (29-168)
[2018-10-05] MEDS: SODIUM CHLORIDE 0.9% 1000ML 1,000 ML IV SCH (05:27)
[2018-10-05 05:39] LABS: BASOPHILS % 0.3 % (0.0-1.0); EOSINOPHILS # (AUTO) 0.1 (0.0-0.4); EOSINOPHILS % 1.3 % (0.0-6.0); HEMATOCRIT 34.9 % (34.2-44.1); HEMOGLOBIN 11.4 g/dL (12.0-16.0); LYMPHOCYTES # (AUTO) 2.2 (1.0-3.2); LYMPHOCYTES % 22.5 % (18.0-39.1); MEAN CORPUSCULAR HEMOGLOBIN 29.6 pg (28-32); MEAN CORPUSCULAR HGB CONC 32.7 g/dL (31-35); MEAN CORPUSCULAR VOLUME 90.6 fL (81-99); MONOCYTES # (AUTO) 0.9 (0.2-0.8); MONOCYTES % 9.5 % (4.4-11.3); NEUTROPHILS # (AUTO) 6.3 (2.1-6.9); PLATELET COUNT 265 x10e3/uL (140-360); RED BLOOD COUNT 3.85 x10e6/uL (3.6-5.1); RED CELL DISTRIBUTION WIDTH 14.4 % (11.7-14.4)
[2018-10-05 06:06] LABS: ALBUMIN 3.8 g/dL (3.5-5.0); ALBUMIN/GLOBULIN RATIO 1.1 (0.8-2.0); ANION GAP 15.1 mmol/L (8-16); CALCIUM 10.4 mg/dL (8.4-10.2); CREATININE, SERUM 2.64 mg/dL (0.57-1.11); POTASSIUM 5.1 mmol/L (3.5-5.1)
--- NOTE | 2018-10-05 06:50 | NUR ---
rounded with mini shifter nurse, patient aware of change and in no distress. call barrientos within reach and bed in lowest position.
[2018-10-05 07:02] LABS: CREATINE KINASE MB 1.4 ng/mL (0-5.0)
[2018-10-05] MEDS: PANTOPRAZOLE SOD 40 MG TABEC PO SCH (09:25)
[2018-10-05] MEDS: CEFTRIAXONE SOD 1 GM/NS 50 ML 50 ML IV SCH (09:25)
[2018-10-05] MEDS: PAROXETINE HCL 20 MG TAB PO SCH (09:25)
[2018-10-05] MEDS ORDERED: DIATRIZOATE MEGL/DIATRIZOA SOD 30 ML BTL PO ONE (10:07)
[2018-10-05 12:00] LABS: BILIRUBIN,URINE NEGATIVE (NEGATIVE); CLARITY,URINE SL CLOUDY (CLEAR); COLOR,URINE YELLOW (YELLOW); KETONES,URINE NEGATIVE (NEGATIVE); LEUKOCYTE ESTERASE ,URINE 2+ (NEGATIVE); NITRITE,URINE NEGATIVE (NEGATIVE); PROTEIN,URINE DIPSTICK 2+ (NEGATIVE); URINE UROBILINOGEN 0.2 mg/dL (0.2 - 1)
[2018-10-05 12:24] LABS: BACTERIA,URINE FEW /HPF; EPITHELIAL CELLS,URINE FEW /LPF; MUCUS,URINE FEW (RARE); WBC,URINE (MAN) >50 /HPF (0-5)
--- NOTE | 2018-10-05 12:24 | Diagnostic Imaging Report ---
EXAMINATION: CT of the abdomen and pelvis without contrast. TECHNIQUE: Helical CT images of the abdomen and pelvis were performed from the lung bases to the lesser trochanters. No intravenous contrast was given. Coronal and sagittal reformatted images were obtained.Dose modulation, iterative reconstruction, and/or weight based adjustment of the mA/kV was utilized to reduce the radiation dose to as low as reasonably achievable. COMPARISON: None. CLINICAL HISTORY:Fall, syncope DISCUSSION: ABSENCE OF INTRAVENOUS CONTRAST DECREASES SENSITIVITY FOR DETECTION OF FOCAL LESIONS AND VASCULAR PATHOLOGY. ABDOMEN/PELVIS: LOWER THORAX: Unremarkable. HEPATOBILIARY:No focal hepatic lesions. No biliary ductal dilation. The gallbladder is normal. SPLEEN: No splenomegaly. PANCREAS: No focal masses or ductal dilatation. ADRENALS: No adrenal nodules. KIDNEYS/URETERS: No hydronephrosis, stones, or solid mass lesions. PELVIC ORGANS/BLADDER: The bladder is normal. PERITONEUM/RETROPERITONEUM: No free air or fluid. LYMPH NODES: No intra-abdominal,retroperitoneal, pelvic or inguinal lymphadenopathy. VESSELS: Limited evaluation GI TRACT: No distention or wall thickening. Duodenal diverticulum. Right lower quadrant ileostomy. BONES AND SOFT TISSUES: Degenerative disc disease L4-5 and L5-S1. IMPRESSION: No acute CT finding. Signed by: Dr. Andrew Felipe M.D. on 10/05/2018 12:21 PM
[2018-10-05 13:59] LABS: CREATINE KINASE MB 1.2 ng/mL (0-5.0)
--- NOTE | 2018-10-05 15:48 | History and Physical ---
PRIMARY CARE PHYSICIAN: Padmaja Pugh MD CHIEF COMPLAINT: Acute kidney injury, dehydration, status post syncope. HISTORY OF PRESENT ILLNESS: The patient is a 78 years old female. According to the patient and history may be unreliable, but the patient on September 09 at [facility], the patient had urinary bladder lift because of previous hysterectomy and then subsequently apparently with complication the patient ended up with a colostomy a week later. The patient went home, eventually did okay, but apparently while she was at home walking to the kitchen, she accidentally fell, however, does not remember whether she had a loss of consciousness or any symptom prior to her fall. The patient now is otherwise stable. She had a colostomy in place. No urinalysis was done and is now ordered. The patient was stable. She does not complain of any chest pain or shortness of breath. No dizziness. No headaches. CT scan of the brain was negative. The patient complained of some lower pelvic pain from her previous surgery. The patient has output from her ostomy. PAST MEDICAL HISTORY: Diabetes type 2, hypertension, possible dementia since the patient is on Aricept. Possible chronic kidney disease, although the patient's lab work shown sign of dehydration. PAST SURGICAL HISTORY: Urinary bladder lift with pelvic surgery on September 09, 2018. A week later, subsequent colostomy. The reason for colostomy most likely complication from the surgery, but not known at this time. Medical record will be requested. ALLERGIES: NO KNOWN ALLERGIES. HOME MEDICATIONS: List will be pending for review correctly. REVIEW OF SYSTEMS: Suprapubic pain. Pelvic pain. No nausea. No vomiting. No fever. No headaches. No chest pain or shortness of breath. PHYSICAL EXAMINATION: VITAL SIGNS: Temperature is 97, blood pressure 133/60, pulse rate 86, respirations 20. GENERAL: The patient is not in any distress. She is awake, alert, comfortable. HEENT: Normocephalic, traumatic. Anicteric. NECK: Supple grossly. PULMONARY: Clear. CARDIOVASCULAR: Regular rate and rhythm. ABDOMEN: Ostomy. Generalized discomfort but no guarding, no rebound, no distention. EXTREMITIES: No cyanosis or edema. NEUROLOGIC: No gross focal deficit. LABORATORY DATA: Sodium is 133, potassium 5.1, chloride 106, bicarb 17, BUN is 50, creatinine 2.6, glucose 123. WBC of 9.6, hemoglobin of 11.4, hematocrit 35, platelets 265. Urinalysis pending. Liver enzymes normal. PTT is 27.4. IMPRESSION: 1. Acute kidney injury, on chronic kidney failure versus chronic kidney failure at baseline. 2. Status post syncope, probably from dehydration versus accidentally fall. No neurological deficit. No sign of cardiac problem. 3. Recent pelvic surgery with subsequent ostomy, possible colostomy. 4. Baseline multiple chronic medical problems. PLAN: Continue with IV fluids. Add on antibiotics. Consultation with Renal. CT scan of the abdomen and pelvis without contrast. We will monitor the patient closely. We will obtain medical records from the [facility]. MD MINDY Noyola/MODL /[id number]
--- NOTE | 2018-10-05 18:50 | NUR ---
rounded with fast food shift lead nurse, patient aware of change and in no distress. call barrientos within reach and bed in lowest position.
[2018-10-05] MEDS: HEPARIN SOD (PORCINE) 5,000 UNIT/ML VIAL SC SCH (20:52)
[2018-10-06] VITALS (7 sets, daily range): BP systolic 117–166; BP diastolic 56–71
[2018-10-06 04:28] LABS: EOSINOPHIL SMEAR,URINE NONE SEEN (NONE SEEN)
[2018-10-06 06:00] LABS: BASOPHILS % 0.5 % (0.0-1.0); EOSINOPHILS # (AUTO) 0.2 (0.0-0.4); EOSINOPHILS % 2.8 % (0.0-6.0); HEMOGLOBIN 10.8 g/dL (12.0-16.0); LYMPHOCYTES # (AUTO) 1.5 (1.0-3.2); LYMPHOCYTES % 25.3 % (18.0-39.1); MEAN CORPUSCULAR HEMOGLOBIN 29.8 pg (28-32); MEAN CORPUSCULAR HGB CONC 33.8 g/dL (31-35); MEAN CORPUSCULAR VOLUME 88.2 fL (81-99); MONOCYTES # (AUTO) 0.7 (0.2-0.8); MONOCYTES % 11.9 % (4.4-11.3); NEUTROPHILS # (AUTO) 3.5 (2.1-6.9); PLATELET COUNT 223 x10e3/uL (140-360); RED BLOOD COUNT 3.63 x10e6/uL (3.6-5.1); RED CELL DISTRIBUTION WIDTH 14.2 % (11.7-14.4)
[2018-10-06 06:27] LABS: MAGNESIUM 2.5 MG/DL (1.3-2.1); PHOSPHORUS 4.2 MG/DL (2.3-4.7)
--- NOTE | 2018-10-06 06:42 | Consultation ---
DATE OF CONSULTATION: Renal Consult REASON FOR CONSULT: Increased creatinine. HISTORY OF PRESENT ILLNESS: This is a 78-year-old female, who has been falling and that is why she came into the emergency room. The patient had urinary bladder lift on September 09. She was doing okay previously, but since then, it feels like she has been worse. PAST MEDICAL HISTORY: 1. Possible chronic kidney disease. No previous creatinine is available. 2. Type 2 diabetes mellitus. 3. Hypertension. 4. Questionable dementia. PAST SURGICAL HISTORY: 1. Urinary bladder lift with pelvic surgery, September 09, 2018. 2. Subsequent colostomy. 3. No other surgeries available. ALLERGIES: NO KNOWN DRUG ALLERGIES. HOME MEDICATIONS: The patient does not know her meds. REVIEW OF SYSTEMS: Currently denies any nausea, vomiting, constipation, or diarrhea. Denies any shortness of breath. Denies any blood in the stool, blood in the urine, or sensory loss. Denies any diarrhea. Basically otherwise is negative. CURRENT MEDICATIONS: Include heparin, Rocephin, paroxetine, and Protonix. LABORATORY DATA: White count 9.5, hemoglobin of 11.4, hematocrit 34.9, and platelets 265. Sodium 133, potassium 5.1, chloride 106, CO2 17, BUN 50. Creatinine 2.64, yesterday was 2.04. CT of abdomen and pelvis, no contrast, demonstrated no acute findings. PHYSICAL EXAMINATION: GENERAL: Alert and following commands. HEENT: Pupils are equal and reactive to light and accommodation. NECK: No JVD. No bruits. LUNGS: Rhonchi. No rales. HEART: Regular rate and rhythm. No S3. No S4. ABDOMEN: Nontender and nondistended. No hepatomegaly or splenomegaly. EXTREMITIES: No clubbing, no cyanosis, no edema. NEUROLOGIC: Cranial nerves II through XII are grossly intact. Sensation intact. Motor intact. VITAL SIGNS: Afebrile, blood pressure 129/57. ASSESSMENT AND PLAN: 1. Acute versus acute on chronic kidney disease. We worked the patient for glomerulonephritis. Check UA. Rule out hepatitis. Rule out lupus, but no available previous creatinine. The patient does not have primary care, but at this time I cannot call until Sunday. 2. Recent pelvic surgery with subsequent ostomy. No more details available. 3. Possible volume depletion causing syncope. For now, we will continue IV fluids. While awaiting records from [facility] and from her primary to evaluate her renal function. Dino Salinas MD MA/VICTORIANO /[id number]
--- NOTE | 2018-10-06 06:50 | NUR ---
rounded with shift engineer nurse, patient aware of change and resting comfortably. call barrientos within reach and bed in lowest position.
[2018-10-06 06:51] LABS: THYROID STIMULATING HORMONE 0.376 uIU/mL (0.350-4.940)
[2018-10-06 06:56] LABS: ANION GAP 13.8 mmol/L (8-16); CALCIUM 9.9 mg/dL (8.4-10.2); CREATININE, SERUM 1.45 mg/dL (0.57-1.11); POTASSIUM 4.8 mmol/L (3.5-5.1)
[2018-10-06 06:57] LABS: PHOSPHORUS 4.2 MG/DL (2.3-4.7)
[2018-10-06 07:04] LABS: FOLATE 18.1 ng/mL (7.0-15.4)
[2018-10-06 07:15] LABS: CREATININE,URINE RANDOM 58.96 mg/dL (47-110); TOTAL PROTEIN, URINE 7.1 mg/dL (1-14)
[2018-10-06 07:18] LABS: SODIUM,URINE < 20 mmol/L
[2018-10-06] MEDS: PAROXETINE HCL 20 MG TAB PO SCH (08:30)
[2018-10-06] MEDS: CEFTRIAXONE SOD 1 GM/NS 50 ML 50 ML IV SCH (08:30)
[2018-10-06] MEDS: PANTOPRAZOLE SOD 40 MG TABEC PO SCH (08:30)
[2018-10-06] MEDS: HEPARIN SOD (PORCINE) 5,000 UNIT/ML VIAL SC SCH ×2 (08:30→20:41)
[2018-10-06] MEDS: SODIUM CHLORIDE 0.9% 1000ML 1,000 ML IV SCH ×2 (08:55→18:45)
[2018-10-06] MEDS: LABETALOL HCL 200 MG TAB PO SCH ×2 (08:55→17:05)
[2018-10-06] MEDS: AMLODIPINE BESYLATE 10 MG TAB PO SCH (08:55)
--- NOTE | 2018-10-06 18:50 | NUR ---
walking rounds made with president and ceo nurse patient aware of change with family at bedside. call barrientos within reach and bed in lowest position.
[2018-10-07 04:14] VITALS: BP 130/63
[2018-10-07] MEDS: SODIUM CHLORIDE 0.9% 1000ML 1,000 ML IV SCH (04:38)
--- NOTE | 2018-10-07 07:00 | NUR ---
bedside rounds complete no distress noted,updated on poc vocied understanding,denies pain at this time, call light in reach will continue to monitor
[2018-10-07 07:47] VITALS: BP 141/66
[2018-10-07] MEDS: AMLODIPINE BESYLATE 10 MG TAB PO SCH (09:47)
[2018-10-07] MEDS: PANTOPRAZOLE SOD 40 MG TABEC PO SCH (09:48)
[2018-10-07] MEDS: LABETALOL HCL 200 MG TAB PO SCH (09:48)
[2018-10-07] MEDS: PAROXETINE HCL 20 MG TAB PO SCH (09:48)
[2018-10-07] MEDS: CEFTRIAXONE SOD 1 GM/NS 50 ML 50 ML IV SCH (09:49)
[2018-10-07] MEDS: HEPARIN SOD (PORCINE) 5,000 UNIT/ML VIAL SC SCH (09:56)
[2018-10-07 09:59] VITALS: BP 141/66
--- NOTE | 2018-10-07 11:28 | Diagnostic Imaging Report ---
EXAM: Renal Ultrasound INDICATION: KEN COMPARISON: CT abdomen/pelvis without contrast 10/05/2018. TECHNIQUE: Transverse and longitudinal images of the kidneys and bladder were obtained. FINDINGS: Right Kidney: Length: Measures up to 11 cm. Appearance: Normal echogenicity. Collecting system: No hydronephrosis Stones: None Cyst/Mass: None Left Kidney: Length: Measures up to 10.9 cm. Appearance: Normal echogenicity. Collecting system: No hydronephrosis Stones: None Cyst/Mass: None Bladder: Limited evaluation due to partial decompression. IMPRESSION: Unremarkable renal ultrasound. Signed by: Dr. Alonzo Gomez MD on 10/07/2018 11:25 AM
[2018-10-07 11:38] VITALS: BP 131/62
--- NOTE | 2018-10-07 13:14 | NUR ---
EDUCATED ABOUT IMM, SIGNED, FILED IN CHART, WITH COPY LEFT WITH FAMILY AT BEDSIDE.
--- NOTE | 2018-10-08 03:01 | Discharge Summary ---
PRIMARY CARE PHYSICIAN: Padmaja Pugh MD. BAND TIER: Dino Salinas MD. FINAL DIAGNOSES: 1. Near syncopal to a syncopal episode. 2. Dehydration. 3. Acute kidney injury. 4. Urinary tract infection. SUMMARY: This is 78 years old female with recent pelvic surgery and diverting ostomy per patient history unclear, but apparently the patient was having some weakness, dehydration, and had a syncopal episode. Workup was negative. The patient is otherwise stable. Carotid Doppler echocardiogram showed no significant abnormality. Echocardiogram showed ejection fraction of 55%. The patient is stable. She had elevated BUN and creatinine on admission, a sign of dehydration. She has been receiving rehydration. The patient did not have any white cell count. Her glycohemoglobin A1c is 5.7. Creatinine on admission was 2.6, now is 1.45. The patient's vital signs are stable. At this time, she is currently stable. She is ambulatory. She is able to tolerate all her diet. She does have stool output. She is urinating well. The patient will go home with Cipro 5 mg twice a day for 7 days. Zofran ODT 4 mg sublingual q.6 as needed for nausea and vomiting. The patient is stable to discharge home. Resume home medication. Follow up with her family doctor as planned. MD MINDY Noyola/ROSALINEL /[id number]
[2018-10-09 08:49] LABS: OSMOLALITY,SERUM OSMOMETER 293 mOsmol/kg (280-301)
[2018-10-09 17:10] LABS: ALPHA 2 GLOBULIN URINE PEP 20.6 % (.)
== END 2018-10-07 15:10 | disposition home or self-care (01) | DRG 683 ==
LOC: ER 16:20 → ERHOLD 17:29 → MED/SURG 19:12
PROVIDERS: ADMIT Internal Medicine; ATTEND Internal Medicine
DX: N17.9 Acute kidney failure, unspecified (principal); N39.0 Urinary tract infection, site not specified; E86.0 Dehydration; I12.9 Hypertensive chronic kidney disease with stage 1 through stage 4 chronic kidney disease, or unspecified chronic kidney disease; N18.3 Chronic kidney disease, stage 3 (moderate); F03.90 Unspecified dementia, unspecified severity, without behavioral disturbance, psychotic disturbance, mood disturbance, and anxiety
CPT/HCPCS: 36415; 70450; 74176; 76770; 80048; 80053; 81001; 81015; 82550; 82553; 82570; 82607; 82746; 82948; 83036; 83735; 83880; 83930; 83970; 84100; 84132; 84156; 84165; 84166; 84300; 84443; 84484; 84550; 85025; 85730; 86021; 86039; 86160; 86431; 87340; 93005; 93306; 99284; J0696; J1644; J7030; J7799